=== PATIENT | male | born 1945 | race Hispanic/Latino ===

== ENCOUNTER 2017-05-16 09:08 | Emergency (ER) | payer MEDICARE, OTHER ==
[2017-05-16 09:32] VITALS: BMI 19.2
--- NOTE | 2017-05-16 09:33 | C.PDOC ---
History Of Present Illness 72M c/o low back pain since 2010 which has worsened over the last couple days. he says he used to take opioid pain medication but stopped back in august. he denies any fever, IVDA, abdominal pain, problems with urination, numbness, weakness, or saddle anesthesia. Past Medical History Vital Signs: Last Vital Signs Temp 97.7 F 05/16/17 12:32 Pulse 84 05/16/17 12:32 Resp 17 05/16/17 12:32 BP 143/77 05/16/17 12:32 Pulse Ox 98 05/16/17 12:32 - Medical History PMH: Back Problems, Benign Prostatic Hyperplasia, Cardia Arrhythmia, CHF, COPD, Depression, Diabetes, Diverticulitis, HTN, Hypercholesterolemia, Kidney Stones Denies: Chronic Kidney Disease Surgical History: Hernia Repair, Pacemaker - [facility] Procedures BYPASS ILEUM TO TRANSVERSE COLON, OPEN APPROACH (05/08/15) BYPASS SIGMOID COLON TO CUTANEOUS, OPEN APPROACH (05/08/15) EXCISION OF RECTUM, OPEN APPROACH (03/19/16) EXTIRPATION OF MATTER FROM GI TRACT, OPEN APPROACH (03/19/16) INSERTION OF INFUSION DEV INTO R BRACH VEIN, PERC APPROACH (05/08/15) INTRODUCTION OF NUTRITIONAL INTO PERIPH VEIN, PERC APPROACH (05/08/15) IRRIGATION OF PERITONEAL CAVITY USING IRRIGAT, PERC APPROACH (05/08/15) REPAIR ABDOMINAL WALL, OPEN APPROACH (03/19/16) REPAIR ABDOMINAL WALL, STOMA, EXTERNAL APPROACH (02/13/16) RESECTION OF RIGHT LARGE INTESTINE, OPEN APPROACH (05/08/15) TRANSFUSE NONAUT RED BLOOD CELLS IN PERIPH VEIN, PERC (03/19/16) ULTRASONOGRAPHY OF RIGHT UPPER EXTREMITY VEINS, GUIDANCE (05/08/15) VACCINATION NEC (02/04/14) Family History: States: Unknown Family Hx - Social History Hx Tobacco Use: Yes Hx Alcohol Use: No Hx Substance Use: No - Immunization History Hx Tetanus Toxoid Vaccination: Yes Hx Influenza Vaccination: No Hx Pneumococcal Vaccination: Yes Physical Exam - Physical Exam Appears: Well, Non-toxic, No Acute Distress Skin: Warm, Dry Head: Atraumatic Eye(s): bilateral: PERRL Nose: No Epistaxis Cardiovascular: Rhythm Regular Respiratory: No Decreased Breath Sounds, No Accessory Muscle Use, No Rales, No Rhonchi, No Stridor, No Wheezing Gastrointestinal/Abdominal: Soft, No Tenderness, No Distention, No Guarding, No Rebound Back: No Vertebral Tenderness Extremity: No Swelling Extremity: Bilateral: Normal ROM (hips and knees) Pulses: Left Dorsalis Pedis: Normal, Right Dorsalis Pedis: Normal Neurological/Psych: Oriented x3, Normal Motor, Normal Sensation, Other (no focal deficits. negative babinski. no clonus. nl strength in b/l hip/knee/ankle flex/ext and EHL.) Medical Decision Making Medical Decision Making: xr ls, right hip, pelvis- no acute fracture 1215 pt resting quietly in no distress. I disc results, plan for rx, f/u and rtr. he v/u and agrees w plan. Disposition - Disposition Referrals: Bandar Gold Jr., MD [Medical Doctor] - Disposition: HOME/ ROUTINE Disposition Time: 12:18 Condition: STABLE Additional Instructions: Please follow up with your doctor. Return to the ER for any worsening symptoms or for any other concerns. Prescriptions: Cyclobenzaprine [Cyclobenzaprine HCl] 10 mg PO TID PRN #20 tab PRN Reason: Pain, Severe (8-10) Lidocaine 5% [Lidoderm] 1 ea TD DAILY PRN #10 patch PRN Reason: back pain Naproxen [Naprosyn] 500 mg PO Q12H PRN #10 tablet PRN Reason: Pain, Moderate (4-7) Forms: General Discharge Instructions, [facility] (Portuguese) - Clinical Impression Clinical Impression: Low back pain
[2017-05-16 11:31] LABS: URINE BILIRUBIN NEGATIVE (NEGATIVE); URINE BLOOD NEGATIVE (NEGATIVE); URINE CLARITY Clear (Clear); URINE COLOR Yellow (YELLOW); URINE GLUCOSE (UA) NORMAL (Normal); URINE LEUKOCYTE ESTERASE NEG Leu/uL (Negative); URINE NITRATE NEGATIVE (NEGATIVE); URINE PROTEIN NEGATIVE (NEGATIVE); URINE UROBILINOGEN NORMAL mg/dL (0.2-1.0)
--- NOTE | 2017-05-16 12:30 | RAD ---
PROCEDURE: Radiographs of the Lumbar Spine. HISTORY: pain COMPARISON: Comparison is made to the previous CT of the lumbar spine dated 08/26/2016 FINDINGS: BONES: Again seen are diffuse osteopenia. There are multiple [id number] compression deformity in the lumbar spine. Grade moderate levoscoliosis and S shape scoliosis at the lower thoracic and lumbar spine noted. . DISC SPACES: Advanced degenerative changes are noted at the lumbar spine. OTHER FINDINGS: None. IMPRESSION: Advanced degenerative changes and diffuse osteopenia. Multiple mild compression deformity at the lumbar spine vertebrae. Lumbar spine levoscoliosis.
[2017-05-16 12:32] VITALS: BP 143/77; PULSE 84; RESP 17; TEMP 97.7; O2SAT 98
--- NOTE | 2017-05-16 12:34 | RAD ---
PROCEDURE: Right Hip Radiographs. HISTORY: pain COMPARISON: None. FINDINGS: BONES: Normal. No fracture. JOINTS: Moderate osteoarthritic changes. SOFT TISSUES: Normal. OTHER FINDINGS: None. IMPRESSION: No evidence of acute fracture or dislocation. Moderate osteoarthritic changes.
== END 2017-05-16 12:31 | disposition home or self-care (01) ==
LOC: C.ER 09:08
DX: M54.5 Low back pain (principal)
CPT/HCPCS: 36415; 72100; 73502; 81001; 96372; 99284; J1885

== ENCOUNTER 2017-05-29 10:26 | Emergency (ER) | payer MEDICARE, OTHER ==
[2017-05-29 10:26] VITALS: BMI 19.2
--- NOTE | 2017-05-29 11:37 | C.PDOC ---
History Of Present Illness 72 y/o male presents to ED with complaints of "pinching in left costovertebral area" that began today. Pt states he was seen last week for right sided back pain with negative x-rays and he was discharged with muscle relaxants, lidoderm patch, and naprosyn. Pt also states he was seen by Pain Management and was prescribed Endocet 10/325. Pt states he ran out of muscle relaxants and he was using lidoderm ointment. 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 He states endocet improved pain but it did recur this morning. Denies numbness or weakness in legs, abdominal pain, SOB, fever, nausea or vomiting. He denies any injury or overuse activities Time Seen by Provider: 05/29/17 10:56 Chief Complaint (Nursing): Back Pain History Per: Patient History/Exam Limitations: no limitations Onset/Duration Of Symptoms: Hrs Current Symptoms Are (Timing): Still Present Quality Of Discomfort: Other (Pinching) Previous Symptoms: Back Pain (right sided ) Associated Symptoms: None Recent travel outside of the [place]: No Past Medical History Reviewed: Historical Data, Nursing Documentation, Vital Signs Vital Signs: Last Vital Signs Temp 98.1 F 05/29/17 10:39 Pulse 80 05/29/17 10:39 Resp 15 05/29/17 10:39 BP 170/62 H 05/29/17 10:39 Pulse Ox 98 05/29/17 13:16 - Medical History PMH: Back Problems, Benign Prostatic Hyperplasia, Cardia Arrhythmia, CHF, COPD, Depression, Diabetes, Diverticulitis, HTN, Hypercholesterolemia, Kidney Stones Surgical History: Hernia Repair, Pacemaker - [facility] Procedures BYPASS ILEUM TO TRANSVERSE COLON, OPEN APPROACH (05/08/15) BYPASS SIGMOID COLON TO CUTANEOUS, OPEN APPROACH (05/08/15) EXCISION OF RECTUM, OPEN APPROACH (03/19/16) EXTIRPATION OF MATTER FROM GI TRACT, OPEN APPROACH (03/19/16) INSERTION OF INFUSION DEV INTO R BRACH VEIN, PERC APPROACH (05/08/15) INTRODUCTION OF NUTRITIONAL INTO PERIPH VEIN, PERC APPROACH (05/08/15) IRRIGATION OF PERITONEAL CAVITY USING IRRIGAT, PERC APPROACH (05/08/15) REPAIR ABDOMINAL WALL, OPEN APPROACH (03/19/16) REPAIR ABDOMINAL WALL, STOMA, EXTERNAL APPROACH (02/13/16) RESECTION OF RIGHT LARGE INTESTINE, OPEN APPROACH (05/08/15) TRANSFUSE NONAUT RED BLOOD CELLS IN PERIPH VEIN, PERC (03/19/16) ULTRASONOGRAPHY OF RIGHT UPPER EXTREMITY VEINS, GUIDANCE (05/08/15) VACCINATION NEC (02/04/14) Family History: States: Unknown Family Hx - Social History Hx Tobacco Use: Yes Hx Alcohol Use: No Hx Substance Use: No - Immunization History Hx Tetanus Toxoid Vaccination: Yes Hx Influenza Vaccination: No Hx Pneumococcal Vaccination: Yes Review Of Systems Constitutional: Negative for: Fever Respiratory: Negative for: Shortness of Breath Gastrointestinal: Negative for: Nausea, Vomiting, Abdominal Pain, Diarrhea Musculoskeletal: Positive for: Other (pinching in left costovertebral area) Neurological: Negative for: Weakness, Numbness Physical Exam - Physical Exam Appears: Well, Non-toxic, Other (Awake and alert) Skin: Normal Color, Warm, Dry Head: Atraumatic, Normacephalic Eye(s): bilateral: Normal Inspection Oral Mucosa: Moist Chest: Symmetrical, No Tenderness Cardiovascular: Rhythm Regular Respiratory: No Rales, No Rhonchi, No Wheezing Gastrointestinal/Abdominal: Soft, No Tenderness Extremity: Tenderness (Left lumbar muscle but no bony tenderness), No Deformity , No Swelling Neurological/Psych: Oriented x3, Normal Speech, Normal Cognition ED Course And Treatment - Laboratory Results Result Diagrams: 05/29/17 11:58 05/29/17 11:58 Lab Interpretation: Normal O2 Sat by Pulse Oximetry: 98 (RA) Pulse Ox Interpretation: Normal - CT Scan/US CT Abdomen & Pelvis Other Rad Studies (CT/US): Read By Radiologist, Radiology Report Reviewed CT/US Interpretation: PROCEDURE: CT Abdomen and Pelvis without intravenous contrast. HISTORY: Pain. COMPARISON: 08/26/2016. TECHNIQUE: Without contrast.. Contrast Dose: 0. Radiation dose: Total exam DLP = 255.72 mGy-cm. This CT exam was performed using one or more of the following dose reduction techniques: Automated exposure control, adjustment of the mA and/or kV according to patient size, and/or use of iterative reconstruction technique. FINDINGS: LOWER THORAX: Cardiomegaly. AICD. No infiltrate. LIVER: Unremarkable. No gross lesion or ductal dilatation. GALLBLADDER AND BILE DUCTS : Unremarkable. PANCREAS: Unremarkable. No gross lesion or ductal dilatation. SPLEEN: Unremarkable. ADRENALS: Unremarkable. No mass. KIDNEYS AND URETERS: Multiple right renal calculi, largest approximately 1.3 cm. No hydronephrosis. No left renal calculus. Parapelvic cyst, 2.6 cm, measuring 11 Hounsfield units. Multiple small right renal cortical masses. 1.2 cm mid right renal mass, slightly hyperdense. Consider correlation with ultrasound. No change from prior. Probable tiny hyperdense cyst lower pole right kidney. Another low-density exophytic mid right renal mass measures 8 mm, unchanged. VASCULATURE: Unremarkable. No aortic aneurysm. BOWEL: There is an anastomosis in the ascending colon. There are surgical clips seen about a loop of distal ileum. There is no bowel obstruction. There is mild retained feces. APPENDIX: Not identified. PERITONEUM: Unremarkable. No free fluid. No free air. LYMPH NODES: Unremarkable. No enlarged lymph nodes. BLADDER: The bladder is significant for a somewhat tubular low-density structure adjacent to the left side of the bladder, possibly with calcified suture material. This may reflect prior bladder surgery such as ureteral implantation. Alternatively, this may represent an atypical diverticulum. Please correlate with history. This is evident on prior examination, in retrospect. REPRODUCTIVE: Unremarkable prostate. BONES: Lumbar levoscoliosis. No acute fracture. OTHER FINDINGS: None. IMPRESSION: No acute abnormality. No bowel obstruction. Evidence prior colonic anastomosis. Tubular fluid collection adjacent to left- sided urinary bladder, possibly reflecting prior ureteral surgery or atypical bladder diverticulum. Multiple nonobstructing right renal calculi. Progress Note: Ordered CT abdomen & pelvis, blood work and urinalysis. Reevaluation Time: 13:15 Reassessment Condition: Improved Disposition Counseled Patient/Family Regarding: Studies Performed, Diagnosis, Need For Followup, Rx Given - Disposition Disposition: HOME/ ROUTINE Disposition Time: 13:17 Condition: STABLE Prescriptions: Cyclobenzaprine [Flexeril] 10 mg PO TID PRN #30 tab PRN Reason: Pain, Severe (8-10) Instructions: Musculoskeletal Pain (ED) Forms: [facility] (Congolese) - Clinical Impression Clinical Impression: Spasm of back muscles - Scribe Statement The provider has reviewed the documentation as recorded by the Vianeyibcesar Carlos All medical record entries made by the Vianeyibcesar were at my direction and personally dictated by me. I have reviewed the chart and agree that the record accurately reflects my personal performance of the history, physical exam, medical decision making, and the department course for this patient. I have also personally directed, reviewed, and agree with the discharge instructions and disposition.
[2017-05-29 11:49] LABS: URINE BILIRUBIN NEGATIVE (NEGATIVE); URINE BLOOD NEGATIVE (NEGATIVE); URINE CLARITY Clear (Clear); URINE COLOR Yellow (YELLOW); URINE GLUCOSE (UA) NORMAL (Normal); URINE LEUKOCYTE ESTERASE NEG Leu/uL (Negative); URINE NITRATE NEGATIVE (NEGATIVE); URINE PROTEIN NEGATIVE (NEGATIVE); URINE UROBILINOGEN NORMAL mg/dL (0.2-1.0)
[2017-05-29 12:03] LABS: BASO # 0.1 K/uL (0.0-0.2); BASO % 0.8 % (0.0-2.0); EOS # 0.2 K/uL (0.0-0.7); EOS % 2.5 % (0.0-4.0); HEMOGLOBIN 13.8 g/dL (12.0-18.0); LYMPH # 1.9 K/uL (1.0-4.3); LYMPH % 21.3 % (20.0-40.0); MEAN CELL VOLUME 98.3 fL (80.0-94.0); MEAN CORPUSCULAR HEMOGLOBIN 33.1 pg (27.0-31.0); MEAN CORPUSCULAR HGB CONC 33.7 g/dL (33.0-37.0); MEAN PLATELET VOLUME 8.5 fL (7.2-11.7); MONO # 0.7 K/uL (0.0-0.8); MONO % 7.4 % (0.0-10.0); NEUT # 6.2 K/uL (1.8-7.0); NRBC % 0.1 % (0.0-2.0); RBC 4.16 Mil/uL (4.40-5.90); RED CELL DISTRIBUTION WIDTH 13.8 % (11.5-14.5); WHITE BLOOD COUNT 9.1 K/uL (4.8-10.8)
[2017-05-29 12:17] LABS: ALB/GLOB RATIO 1.2 (1.0-2.1); ALBUMIN 3.8 g/dL (3.5-5.0); ALT/SGPT 23 U/L (21-72); AST/SGOT 24 U/L (17-59); BLOOD UREA NITROGEN 17 mg/dL (9-20); CALCIUM 8.5 mg/dl (8.6-10.4); GFR AFRICAN-AMERICAN > 60; GFR NON-AFRICAN AMERICAN > 60
--- NOTE | 2017-05-29 12:34 | CT ---
PROCEDURE: CT Abdomen and Pelvis without intravenous contrast HISTORY: Pain COMPARISON: 08/26/2016 TECHNIQUE: Without contrast.. Contrast Dose: 0 Radiation dose: Total exam DLP = 255.72 mGy-cm. This CT exam was performed using one or more of the following dose reduction techniques: Automated exposure control, adjustment of the mA and/or kV according to patient size, and/or use of iterative reconstruction technique. FINDINGS: LOWER THORAX: Cardiomegaly. AICD. No infiltrate. LIVER: Unremarkable. No gross lesion or ductal dilatation. GALLBLADDER AND BILE DUCTS: Unremarkable. PANCREAS: Unremarkable. No gross lesion or ductal dilatation. SPLEEN: Unremarkable. ADRENALS: Unremarkable. No mass. KIDNEYS AND URETERS: Multiple right renal calculi, largest approximately 1.3 cm. No hydronephrosis. No left renal calculus. Parapelvic cyst, 2.6 cm, measuring 11 Hounsfield units. Multiple small right renal cortical masses. 1.2 cm mid right renal mass, slightly hyperdense. Consider correlation with ultrasound. No change from prior. Probable tiny hyperdense cyst lower pole right kidney. Another low-density exophytic mid right renal mass measures 8 mm, unchanged. VASCULATURE: Unremarkable. No aortic aneurysm. BOWEL: There is an anastomosis in the ascending colon. There are surgical clips seen about a loop of distal ileum. There is no bowel obstruction. There is mild retained feces. APPENDIX: Not identified. PERITONEUM: Unremarkable. No free fluid. No free air. LYMPH NODES: Unremarkable. No enlarged lymph nodes. BLADDER: The bladder is significant for a somewhat tubular low-density structure adjacent to the left side of the bladder, possibly with calcified suture material. This may reflect prior bladder surgery such as ureteral implantation. Alternatively, this may represent an atypical diverticulum. Please correlate with history. This is evident on prior examination, in retrospect. REPRODUCTIVE: Unremarkable prostate BONES: Lumbar levoscoliosis. No acute fracture. OTHER FINDINGS: None. IMPRESSION: No acute abnormality. No bowel obstruction. Evidence prior colonic anastomosis. Tubular fluid collection adjacent to left-sided urinary bladder, possibly reflecting prior ureteral surgery or atypical bladder diverticulum. Multiple nonobstructing right renal calculi.
[2017-05-29 13:48] VITALS: BP 166/90; PULSE 62; RESP 20; TEMP 97.6; O2SAT 97
== END 2017-05-29 13:48 | disposition home or self-care (01) ==
LOC: C.ER 10:26
DX: M62.830 Muscle spasm of back (principal); I10 Essential (primary) hypertension; E78.00 Pure hypercholesterolemia, unspecified; E11.9 Type 2 diabetes mellitus without complications; F17.210 Nicotine dependence, cigarettes, uncomplicated

== ENCOUNTER 2017-12-09 12:52 | Emergency (ER) | payer MEDICARE, OTHER ==
[2017-12-09 13:01] VITALS: BMI 19.0
[2017-12-09 13:04] VITALS: BP 156/83; PULSE 69; RESP 18; TEMP 97.7; O2SAT 97
--- NOTE | 2017-12-09 13:22 | C.PDOC ---
History Of Present Illness 72 y/o male presents to the ER complaining of lower back pain for the past 8 days. The patient states the pain began after using a hand truck to move furniture 2 weeks ago, and felt sudden onset of worsening pain. He goes to rehab twice a week for back problems. The patient took percocet at home but did not ice his lower back . He denies any associated fever, chills, dysuria, frequency, incontinence, numbness, tingling or focal weakness. Time Seen by Provider: 12/09/17 13:08 Chief Complaint (Nursing): Back Pain History Per: Patient History/Exam Limitations: no limitations Onset/Duration Of Symptoms: Days Current Symptoms Are (Timing): Still Present Quality Of Discomfort: "Pain" Previous Symptoms: Back Pain (lower) Associated Symptoms: denies: New Weakness, New Numbness Past Medical History Reviewed: Historical Data, Nursing Documentation, Vital Signs Vital Signs: Last Vital Signs Temp 97.7 F 12/09/17 13:01 Pulse 69 12/09/17 13:01 Resp 18 12/09/17 13:43 BP 156/83 H 12/09/17 13:01 Pulse Ox 97 12/09/17 14:57 - Medical History PMH: Back Problems, Benign Prostatic Hyperplasia, Cardia Arrhythmia, CHF, COPD, Depression, Diabetes, Diverticulitis, HTN, Hypercholesterolemia, Kidney Stones, Chronic Kidney Disease Surgical History: Hernia Repair, Pacemaker - [facility] Procedures BYPASS ILEUM TO TRANSVERSE COLON, OPEN APPROACH (05/08/15) BYPASS SIGMOID COLON TO CUTANEOUS, OPEN APPROACH (05/08/15) EXCISION OF RECTUM, OPEN APPROACH (03/19/16) EXTIRPATION OF MATTER FROM GI TRACT, OPEN APPROACH (03/19/16) INSERTION OF INFUSION DEV INTO R BRACH VEIN, PERC APPROACH (05/08/15) INTRODUCTION OF NUTRITIONAL INTO PERIPH VEIN, PERC APPROACH (05/08/15) IRRIGATION OF PERITONEAL CAVITY USING IRRIGAT, PERC APPROACH (05/08/15) REPAIR ABDOMINAL WALL, OPEN APPROACH (03/19/16) REPAIR ABDOMINAL WALL, STOMA, EXTERNAL APPROACH (02/13/16) RESECTION OF RIGHT LARGE INTESTINE, OPEN APPROACH (05/08/15) TRANSFUSE NONAUT RED BLOOD CELLS IN PERIPH VEIN, PERC (03/19/16) ULTRASONOGRAPHY OF RIGHT UPPER EXTREMITY VEINS, GUIDANCE (05/08/15) VACCINATION NEC (02/04/14) Family History: States: Unknown Family Hx - Social History Hx Tobacco Use: Yes Hx Alcohol Use: No Hx Substance Use: No - Immunization History Hx Tetanus Toxoid Vaccination: No Hx Influenza Vaccination: No Hx Pneumococcal Vaccination: No Review Of Systems Except As Marked, All Systems Reviewed And Found Negative. Constitutional: Negative for: Fever, Chills Genitourinary: Negative for: Dysuria, Frequency, Incontinence Musculoskeletal: Positive for: Back Pain Neurological: Negative for: Weakness (focal), Numbness, Other (tingling) Physical Exam - Physical Exam Appears: Well, Non-toxic, No Acute Distress Skin: Warm, Dry Head: Atraumatic, Normacephalic Eye(s): bilateral: PERRL, EOMI Ear(s): Bilateral: Normal Oral Mucosa: Moist Neck: Normal ROM, Supple Chest: Symmetrical Cardiovascular: Rhythm Regular, No Murmur Respiratory: Normal Breath Sounds, No Rales, No Rhonchi, No Wheezing Gastrointestinal/Abdominal: Bowel Sounds, Soft, No Tenderness Back: No Vertebral Tenderness, Paraspinal Tenderness (Paralumbar tenderness bilaterally) Extremity: Normal ROM Extremity: Bilateral: Atraumatic, Normal Color And Temperature, Normal ROM Pulses: Left Radial: Normal, Right Radial: Normal Neurological/Psych: Oriented x3, Normal Speech, Normal Motor, Normal Sensation Gait: Steady ED Course And Treatment O2 Sat by Pulse Oximetry: 97 (RA) Pulse Ox Interpretation: Normal Medical Decision Making Medical Decision Making: Impression: 72 y/o male with Paralumbar tenderness bilaterally Plan: --Motrin 600mg PO low back strain, improving over the past week, best today LOW susp of spinal fracture NSIADS and ice PRIOR To using Percocet educated. Disposition Doctor Will See Patient In The: Office Counseled Patient/Family Regarding: Studies Performed, Diagnosis - Disposition Referrals: Bandar Gold Jr., MD [Medical Doctor] - Disposition: HOME/ ROUTINE Disposition Time: 13:23 Condition: GOOD Additional Instructions: Advil/Motrin 400-600 mg every 6 hours as needed for lower back pain ice packs 1/2 hour per hour, nothing hot Use as LITTLE Percocet as possible follow-up with Dr. Gold as needed LOW suspicion of spinal fracture. Instructions: Lumbar Muscle Strain (DC) Forms: [facility] (Luxembourgish) - Clinical Impression Clinical Impression: Low back strain - Scribe Statement The provider has reviewed the documentation as recorded by the Scribe (Jayshree Freeman) Provider Attestation: All medical record entries made by the Scribe were at my direction and personally dictated by me. I have reviewed the chart and agree that the record accurately reflects my personal performance of the history, physical exam, medical decision making, and the department course for this patient. I have also personally directed, reviewed, and agree with the discharge instructions and disposition.
== END 2017-12-09 13:44 | disposition home or self-care (01) ==
LOC: C.ER 12:52
DX: S39.012A Strain of muscle, fascia and tendon of lower back, initial encounter (principal); X58.XXXA Exposure to other specified factors, initial encounter

== ENCOUNTER 2017-12-24 05:49 | Emergency (ER) | payer MEDICARE, OTHER ==
[2017-12-24 05:50] VITALS: BMI 19.0
[2017-12-24] MEDS ORDERED: Sodium Chloride 0.9% 500 ML IV ONE (06:15)
[2017-12-24] MEDS ORDERED: Sodium Chloride 0.9% 1,000 ML IV ONE (06:15)
[2017-12-24 06:22] LABS: BASO % 0.4 % (0.0-2.0); EOS # 0.2 K/uL (0.0-0.7); EOS % 1.8 % (0.0-4.0); HEMOGLOBIN 13.3 g/dL (12.0-18.0); LYMPH # 1.6 K/uL (1.0-4.3); LYMPH % 15.1 % (20.0-40.0); MEAN CELL VOLUME 98.5 fL (80.0-94.0); MEAN CORPUSCULAR HEMOGLOBIN 33.5 pg (27.0-31.0); MEAN PLATELET VOLUME 8.5 fL (7.2-11.7); MONO # 1.1 K/uL (0.0-0.8); NEUT # 7.8 K/uL (1.8-7.0); NEUT % 72.7 % (50.0-75.0); RBC 3.96 Mil/uL (4.40-5.90); RED CELL DISTRIBUTION WIDTH 13.8 % (11.5-14.5); WHITE BLOOD COUNT 10.7 K/uL (4.8-10.8)
[2017-12-24] MEDS ORDERED: Sodium Chloride 0.9% 1,000 ML ONE (06:23)
[2017-12-24 06:40] LABS: ALB/GLOB RATIO 1.2 (1.0-2.1); ALBUMIN 3.8 g/dL (3.5-5.0); CALCIUM 8.7 mg/dl (8.6-10.4)
--- NOTE | 2017-12-24 06:43 | C.PDOC ---
History Of Present Illness 72 year old male with PMHx of colectomy and kidney stones presents to the ED c/ o hematuria and back pain. Patient states he had kidney stones in the past. Patient denies fever, chills, nausea, vomit, diarrhea. Chief Complaint (Nursing): Male Genitourinary History Per: Patient History/Exam Limitations: no limitations Onset/Duration Of Symptoms: Hrs Current Symptoms Are (Timing): Still Present Quality Of Discomfort: "Pain" Associated Symptoms: Urinary Symptoms. denies: Nausea, Vomiting, Diarrhea Recent travel outside of the [place]: No Additional History Per: Patient Past Medical History Reviewed: Historical Data, Nursing Documentation, Vital Signs Vital Signs: Last Vital Signs Temp 98.5 F 12/24/17 05:57 Pulse 74 12/24/17 05:57 Resp 18 12/24/17 05:57 BP 145/75 12/24/17 05:57 Pulse Ox 98 12/24/17 06:47 - Medical History PMH: Back Problems, Benign Prostatic Hyperplasia, Cardia Arrhythmia, CHF, COPD, Depression, Diabetes, Diverticulitis, HTN, Hypercholesterolemia, Kidney Stones, Chronic Kidney Disease Surgical History: Hernia Repair, Pacemaker - [facility] Procedures BYPASS ILEUM TO TRANSVERSE COLON, OPEN APPROACH (05/08/15) BYPASS SIGMOID COLON TO CUTANEOUS, OPEN APPROACH (05/08/15) EXCISION OF RECTUM, OPEN APPROACH (03/19/16) EXTIRPATION OF MATTER FROM GI TRACT, OPEN APPROACH (03/19/16) INSERTION OF INFUSION DEV INTO R BRACH VEIN, PERC APPROACH (05/08/15) INTRODUCTION OF NUTRITIONAL INTO PERIPH VEIN, PERC APPROACH (05/08/15) IRRIGATION OF PERITONEAL CAVITY USING IRRIGAT, PERC APPROACH (05/08/15) REPAIR ABDOMINAL WALL, OPEN APPROACH (03/19/16) REPAIR ABDOMINAL WALL, STOMA, EXTERNAL APPROACH (02/13/16) RESECTION OF RIGHT LARGE INTESTINE, OPEN APPROACH (05/08/15) TRANSFUSE NONAUT RED BLOOD CELLS IN PERIPH VEIN, PERC (03/19/16) ULTRASONOGRAPHY OF RIGHT UPPER EXTREMITY VEINS, GUIDANCE (05/08/15) VACCINATION NEC (02/04/14) Family History: States: Unknown Family Hx - Social History Hx Tobacco Use: Yes Hx Alcohol Use: No Hx Substance Use: No - Immunization History Hx Tetanus Toxoid Vaccination: No Hx Influenza Vaccination: No Hx Pneumococcal Vaccination: No Review Of Systems Constitutional: Negative for: Fever, Chills Cardiovascular: Negative for: Chest Pain, Palpitations Respiratory: Negative for: Cough, Shortness of Breath Gastrointestinal: Positive for: Abdominal Pain. Negative for: Nausea, Vomiting Genitourinary: Positive for: Hematuria Musculoskeletal: Positive for: Back Pain Skin: Negative for: Rash Neurological: Negative for: Weakness, Numbness Physical Exam - Physical Exam Appears: Non-toxic, No Acute Distress Skin: Normal Color, Warm, Dry Head: Atraumatic, Normacephalic Eye(s): bilateral: Normal Inspection Oral Mucosa: Moist Neck: Normal ROM, Supple Chest: Symmetrical Cardiovascular: Rhythm Regular Respiratory: Normal Breath Sounds, No Rales, No Rhonchi, No Wheezing Gastrointestinal/Abdominal: Soft, No Tenderness, No Guarding, No Rebound Back: CVA Tenderness Extremity: Normal ROM, No Tenderness, No Swelling Neurological/Psych: Oriented x3, Normal Speech Gait: Steady ED Course And Treatment - Laboratory Results Result Diagrams: 12/24/17 06:19 12/24/17 06:19 O2 Sat by Pulse Oximetry: 98 (ON RA) Pulse Ox Interpretation: Normal Medical Decision Making Medical Decision Making: Plan: * CT abd/pelvis * Toradol 30 mg IVP * IV fluids * Urine culture * UA Disposition - Disposition Referrals: Bandar Gold Jr., MD [Primary Care Provider] - Disposition Time: 07:00 Condition: STABLE Forms: [facility] (Syriac) - Clinical Impression Clinical Impression: Hematuria, Back pain - Scribe Statement The provider has reviewed the documentation as recorded by the Scribe Rigoberto Zaragoza All medical record entries made by the Scribe were at my direction and personally dictated by me. I have reviewed the chart and agree that the record accurately reflects my personal performance of the history, physical exam, medical decision making, and the department course for this patient. I have also personally directed, reviewed, and agree with the discharge instructions and disposition. Physician Patient Turnover Patient Signed Over To: Tin Mackenzie Handoff Comments: back pain and hematuria, awaaiting CT study to r/o stone.
[2017-12-24 06:54] LABS: SQUAMOUS EPITHIAL 1 /hpf (0-5); URINE BACTERIA RARE (<OCC); URINE BILIRUBIN NEGATIVE (NEGATIVE); URINE BLOOD 2+ (NEGATIVE); URINE CLARITY Hazy (Clear); URINE COLOR Amber (YELLOW); URINE GLUCOSE (UA) NORMAL (Normal); URINE LEUKOCYTE ESTERASE 2+ Leu/uL (Negative); URINE PROTEIN 2+ mg/dL (NEGATIVE); URINE UROBILINOGEN NORMAL mg/dL (0.2-1.0)
[2017-12-24 08:49] VITALS: BP 142/79; PULSE 77; RESP 16; TEMP 98.6; O2SAT 99
--- NOTE | 2017-12-24 10:38 | CT ---
Date of service: 12/24/2017 PROCEDURE: CT abdomen pelvis. . HISTORY: Back pain/hematuria COMPARISON: Comparison made with prior CT scan of the abdomen pelvis 05/29/2017. TECHNIQUE: Contiguous axial images of the abdomen an pelvis performed without oral or intravenous contrast material. Additional 2D sagittal and coronal reformats generated. Radiation dose: Total exam DLP = . 9.68 mGy-cm. This CT exam was performed using one or more of the following dose reduction techniques: Automated exposure control, adjustment of the mA and/or kV according to patient size, and/or use of iterative reconstruction technique. FINDINGS: LOWER THORAX: Heart is mildly enlarged. No significant pericardial effusion. Tiny hiatal hernia. Mild linear atelectasis and or scarring changes seen both the lung bases including the middle lobe and lingular regions. No infiltrate effusion or basilar pneumothorax. LIVER: Liver exhibits normal size and attenuation pattern. Obvious hepatic mass or collection. GALLBLADDER AND BILE DUCTS: Gallbladder incompletely distended which presumably in part accounts for thick-walled appearance. . No obvious intraluminal gallbladder calculi to suggest acute cholecystitis however clinical correlation with history recommended PANCREAS: The pancreas is atrophic fatty replaced. No obvious pancreatic mass collection or calcification. SPLEEN: Unremarkable. No splenomegaly. ADRENALS: Left adrenal gland slightly nodular in appearance KIDNEYS AND URETERS: There are multiple right renal calculi the largest located in the posterior aspect of the collecting system midpole right kidney measuring approximately 10.2 mm in greatest transverse dimension. There are 2 additional calculi seen in the lower pole right kidney measuring 9 mm. Small calculus seen mid to lower pole right renal collecting system is well. Small exophytic foci likely representing renal cysts 1 of which is a linear calcification in the distal right ureter that measures approximately 13 mm x 2.8 mm. . There are several intraluminal urinary bladder calculi 2 of which are located in the right posterior inferior margin of the urinary bladder near the right ureteral orifice of the largest 2 measuring approximate 6.8 mm and 5.5 mm, the latter of which is located close to the ureteral orifice. Smaller calculi seen within the mid inferior and left posterior inferior margins of the latter 2 of which are near the left ureteral orifice. Punctate calcification seen in upper pole and lower pole collecting system left kidney. No evidence of left-sided hydronephrosis. BLADDER: As above. REPRODUCTIVE: Prostate gland measures approximately 4.4 cm. APPENDIX: Appendix is not seen with certainty on this study. No obvious inflammatory changes right lower quadrant of the abdomen. BOWEL: Evaluation of the bowel is limited due to the lack of oral contrast material. Stomach is incompletely distended which presumably part accounts thick-walled appearance. The visualized loops of small bowel exhibit normal contour and caliber. No evidence of acute mechanical small bowel obstruction. Metallic clips and opaque suture material seen in the region of the right hepatic flexure with additional clips and suture material along the sigmoid colon region. Clinic correlation with surgical history. There is a moderately large amount of stool seen throughout the entire colon consistent fecal retention/ constipation. PERITONEUM: Unremarkable. No fluid collection. No free air. LYMPH NODES: Unremarkable. No enlarged lymph nodes. VASCULATURE: Unremarkable. No aortic aneurysm partially calcified atherosclerotic plaque changes seen along the abdominal aorta and iliac arteries. . BONES: There are multiple of chronic appearing endplate deformities most notably of which involves the superior L4 endplate. Multilevel degenerative spondylosis of the lower thoracic and lumbar spine. There is a moderate to fairly significant levoscoliosis centered at the T12-L1 level with the aid moderate dextroscoliosis in the lower thoracic region. Rounded/elliptical shaped sclerotic lesion within the right inferior pubic ramus adjacent to the symphysis likely representing bone island or osteoma. A similar smaller focus seen in the posterior aspect left iliac bone. OTHER FINDINGS: None. IMPRESSION: Multiple right renal calculi with of linear calculus in the distal right ureter with right-sided hydronephrosis. There are also numerous calculi seen in the urinary bladder 2 of the largest calculi located in the region the right ureteral orifice. . Punctate calculi seen in the upper and lower pole left renal collecting system with tiny calculi seen in the lumen of bladder near the left ureteral orifice however there is no evidence of left-sided hydronephrosis. Postoperative changes of the colon with moderate two fairly significant constipation changes. Pancreatic atrophy. See above discussion for additional details and findings.
== END 2017-12-24 08:48 | disposition home or self-care (01) ==
LOC: SUPCPDRO 05:49 → C.ER 05:49
DX: N20.0 Calculus of kidney (principal); R31.9 Hematuria, unspecified; M54.9 Dorsalgia, unspecified
CPT/HCPCS: 74176; 80053; 81001; 83690; 85025; 87086; 96374; 99285; J1885; J7030; J7040

== ENCOUNTER 2018-01-03 10:52 | Day surgery (SDC) | payer MEDICARE, OTHER ==
[2018-01-03] MEDS ORDERED: Gentamicin 160 MG in Sodium Chloride 0.9% 100 ML IVPB ONE (13:15)
[2018-01-03] MEDS ORDERED: Iohexol 240 (50 ml) ONE (13:37)
[2018-01-03] MEDS ORDERED: Ciprofloxacin 400mg/200ml D5W 400 MG/200 ML BAG IVPB ONE (13:37)
[2018-01-03] MEDS ORDERED: Propofol 10 mg/ml Inj (20 ML) ONE (13:48)
--- NOTE | 2018-01-03 14:10 | PCM.SURG1 ---
Surgeon's Initial Post Op Note - Surgeon's Notes Surgeon: Marty Data Analyst Report Writer: Janessa Type of Anesthesia: General LMA Anesthesia Administered By: staff Pre-Operative Diagnosis: Right renal/ multiple bladder calculi Operative Findings: SAME Post-Operative Diagnosis: Same Operation Performed: Cysto removal 3 bladder calculi Specimen/Specimens Removed: 3 bladder calculi Estimated Blood Loss: EBL {In ML}: 0 Blood Products Given: N/A Drains Used: No Drains Post-Op Condition: Good Date of Surgery/Procedure: 01/03/18 Time of Surgery/Procedure: 14:10
[2018-01-03] MEDS ORDERED: HYDROmorphone 0.5 mg/0.5 ml ISec IVP PRN (14:17)
--- NOTE | 2018-01-03 15:34 | RAD ---
Date of service: 01/03/2018 HISTORY: RENAL AND BLADDER STONE COMPARISON: 12/29/2017 FINDINGS: BOWEL: Normal bowel gas pattern. Mild retained stool. There is an ovoid calculus overlying the right kidney measuring approximately 16 mm in greatest dimension. There are numerous surgical clips in the right abdomen and in the pelvis bilaterally. There is marked lumbar levoscoliosis. An AICD is noted. A 2nd film labeled post demonstrates a right ureteral stent. BONES: As above OTHER FINDINGS: None. IMPRESSION: Right ureteral stent. 16 mm right renal calculus.
[2018-01-03 16:01] VITALS: BP 151/66; PULSE 62; RESP 20; TEMP 97.8; O2SAT 98
--- NOTE | 2018-01-03 16:41 | RAD ---
Date of service: 01/03/2018 PROCEDURE: Intraoperative fluoroscopy HISTORY: RENAL AND BLADDER STONES COMPARISON: Not avail TECHNIQUE: Intraoperative fluoroscopy was provided for placement of right ureteral stent. Total time of fluoroscopy was 1.6 seconds. Cumulative dose was 0.66684 mGy meters squared. FINDINGS: Two fluoroscopic spot films are submitted. IMPRESSION: Fluoroscopy provided.
--- NOTE | 2018-01-04 00:25 | OP ---
Copied To: Roberto Ferguson MD Attending MD: Roberto Ferguson MD PROCEDURE DATE: 01/03/2018 PREOPERATIVE DIAGNOSES: Benign prostatic hyperplasia, multiple bladder calculi, and renal calculi. POSTOPERATIVE DIAGNOSES: Benign prostatic hyperplasia, multiple bladder calculi, and renal calculi. PROCEDURE: Cystoscopy, removal of three bladder calculi, and insertion of right double J-stent. DESCRIPTION OF PROCEDURE: Prior to the procedure, a detailed informed consent was obtained from the patient after a full explanation of risks, complications, limitations, and alternatives of this procedure. The patient agreed to accept the risk and was brought into the room, received prophylactic gentamicin and Cipro. He was draped and prepped in the usual manner and cystoscoped with #21 Storz panendoscope. Three stones were obtained within the bladder. Prostate was also noted to be enlarged and obstructing. Each stone was grasped separately and removed. The attention was then drawn to the right ureteral orifice. The guidewire was passed up into the right renal pelvis under fluoroscopy. We could see that the stone was in the renal pelvis. A 6-Belgian variable length stent was passed over the wire and positioned properly in the ureter. Based on these findings, the patient will need to proceed with lithotripsy and may need a TURP in the future. Roberto Ferguson MD
== END 2018-01-03 16:15 | disposition home or self-care (01) ==
LOC: C.SDS 10:52
PROVIDERS: ATTEND Urology
DX: N20.0 Calculus of kidney (principal); N20.2 Calculus of kidney with calculus of ureter; N21.0 Calculus in bladder
CPT/HCPCS: 52317; 52332; 74019; 88300; J0744; J1580

== ENCOUNTER 2018-02-28 09:48 | Day surgery (SDC) | payer MEDICARE, OTHER ==
[2018-02-28] MEDS ORDERED: Midazolam 2 MG/2 ML VIAL ONE (11:52)
[2018-02-28] MEDS ORDERED: Propofol 10 mg/ml Inj (20 ML) ONE (11:53)
[2018-02-28] MEDS ORDERED: Gentamicin 80 mg in 0.9% NS 160 MG/200 ML BAG IVPB ONE (12:15)
[2018-02-28] MEDS ORDERED: Lidocaine 2% Jelly (Uro-Jet) ONE (12:15)
[2018-02-28] MEDS: Ciprofloxacin 400mg/200ml D5W 400 MG/200 ML BAG IVPB ONE ×2 (12:26→12:34)
[2018-02-28] MEDS ORDERED: Etomidate 20 mg/10ml Inj IV ONE (12:51)
--- NOTE | 2018-02-28 13:03 | PCM.SURG1 ---
Surgeon's Initial Post Op Note - Surgeon's Notes Surgeon: Marty Material Mover: Janessa Type of Anesthesia: General LMA Anesthesia Administered By: Staff Pre-Operative Diagnosis: BPH JEFFERS Operative Findings: BPH JEFFERS Post-Operative Diagnosis: BPH JEFFERS Operation Performed: [place] Specimen/Specimens Removed: NA Estimated Blood Loss: EBL {In ML}: 0 Blood Products Given: N/A Drains Used: No Drains Post-Op Condition: Good Date of Surgery/Procedure: 02/28/18 Time of Surgery/Procedure: 13:03
[2018-02-28] MEDS ORDERED: HYDROmorphone 0.5 mg/0.5 ml ISec IVP PRN (13:10)
[2018-02-28 15:01] VITALS: O2SAT 100
[2018-02-28 15:07] VITALS: BP 153/70; PULSE 73; RESP 17; TEMP 97.7
--- NOTE | 2018-02-28 23:10 | OP ---
PROCEDURE DATE: 02/28/2018 PREOPERATIVE DIAGNOSIS: Benign prostatic hypertrophy with bladder outlet obstruction. POSTOPERATIVE DIAGNOSIS: Benign prostatic hypertrophy with bladder outlet obstruction. PROCEDURE: Transurethral resection of the prostate. SURGEON: Roberto Ferguson MD FINDINGS: Trilobar hypertrophy with bladder outlet obstruction. DESCRIPTION OF PROCEDURE: Prior to the procedure, a detailed informed consent was obtained from the patient . He understood the risks and complications of this procedure and other methods of treating BPH with bladder outlet obstruction. He was willing to accept the risks. He was brought into the room and a time-out was taken according to the rules and regulations of [facility]. The patient received prophylactic antibiotics and was cystoscoped with a laser cystoscope. Previous cystoscopic findings were confirmed. The working element was then inserted into the laser sheath and the laser fiber was inserted. The vaporization of the prostate began at the bladder neck at 1 o'clock and the tissues were vaporated just distal to the bladder neck and just proximal to the verumontanum. The opposite lobe was vaporized in similar fashion and the roof and base of tissue were vaporized in a similar fashion. Care was taken throughout the procedure to avoid injury to the verumontanum, external sphincter, and ureteral orifices, none occurred. The patient tolerated this procedure well and was sent to the recovery room in good condition. Roberto Ferguson MD
== END 2018-02-28 15:52 | disposition home or self-care (01) ==
LOC: C.SDS 09:48
PROVIDERS: ATTEND Urology
DX: N40.1 Benign prostatic hyperplasia with lower urinary tract symptoms (principal); N32.0 Bladder-neck obstruction; N13.8 Other obstructive and reflux uropathy
CPT/HCPCS: 52648; J0744; J1170; J1580

== ENCOUNTER 2018-05-30 10:47 | Inpatient (IN) | payer MEDICARE, OTHER ==
[~2018-05-30 10:47] MED LIST: Fluticasone-Vilanterol 100/25mcg Diskus INH SCH
[2018-05-30 10:48] VITALS: BMI 19.0
[2018-05-30 12:22] LABS: BASO # 0.1 K/uL (0.0-0.2); BASO % 0.7 % (0.0-2.0); EOS # 0.2 K/uL (0.0-0.7); EOS % 2.5 % (0.0-4.0); LYMPH # 1.8 K/uL (1.0-4.3); LYMPH % 22.6 % (20.0-40.0); MEAN CORPUSCULAR HEMOGLOBIN 32.9 pg (27.0-31.0); MEAN CORPUSCULAR HGB CONC 32.8 g/dL (33.0-37.0); MEAN PLATELET VOLUME 8.8 fL (7.2-11.7); MONO # 0.6 K/uL (0.0-0.8); MONO % 7.8 % (0.0-10.0); NEUT # 5.2 K/uL (1.8-7.0); NEUT % 66.4 % (50.0-75.0); RBC 4.6 Mil/uL (4.40-5.90); RED CELL DISTRIBUTION WIDTH 13.8 % (11.5-14.5); WHITE BLOOD COUNT 7.9 K/uL (4.8-10.8)
[2018-05-30 12:24] LABS: URINE BILIRUBIN NEGATIVE (NEGATIVE); URINE BLOOD NEGATIVE (NEGATIVE); URINE CLARITY Clear (Clear); URINE COLOR Yellow (YELLOW); URINE GLUCOSE (UA) NORMAL (Normal); URINE LEUKOCYTE ESTERASE TRACE Leu/uL (Negative); URINE PROTEIN 1+ mg/dL (NEGATIVE); URINE UROBILINOGEN NORMAL mg/dL (0.2-1.0)
[2018-05-30 12:25] LABS: HEMOGLOBIN 15.1 g/dL (12.0-18.0); MEAN CELL VOLUME 100.5 fL (80.0-94.0)
[2018-05-30 12:38] LABS: ALB/GLOB RATIO 1.4 (1.0-2.1); ALBUMIN 4.4 g/dL (3.5-5.0); ALT/SGPT 60 U/L (21-72); AST/SGOT 49 U/L (17-59); BLOOD UREA NITROGEN 24 mg/dL (9-20); CALCIUM 9.1 mg/dl (8.6-10.4); GFR NON-AFRICAN AMERICAN > 60
[2018-05-30 12:48] LABS: B-TYPE NATRIURETIC PEPTIDE 5730 pg/mL (0-900)
--- NOTE | 2018-05-30 12:51 | RAD ---
HISTORY: SOB COMPARISON: Chest x-ray performed 12/24/17 TECHNIQUE: Chest PA and lateral FINDINGS: LUNGS: Biapical pleural thickening. Patchy bibasilar atelectasis. Retrocardiac atelectasis/infiltrates. Please note that chest x-ray has limited sensitivity for the detection of pulmonary masses. PLEURA: Trace bilateral pleural effusions. No definite pneumothorax . CARDIOVASCULAR: Left-sided AICD. Cardiomegaly. Ectatic aorta. Atherosclerotic calcifications. OSSEOUS STRUCTURES: Scoliosis. Osseous demineralization. Degenerative changes. VISUALIZED UPPER ABDOMEN: Unremarkable. OTHER FINDINGS: None. IMPRESSION: Biapical pleural thickening. Patchy bibasilar atelectasis. Retrocardiac atelectasis/infiltrate. Trace bilateral pleural effusions. Left-sided AICD. Cardiomegaly. Ectatic aorta. Atherosclerotic calcifications.
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
--- NOTE | 2018-05-30 13:48 | C.PDOC ---
History Of Present Illness 73 y/o male, w/ PMhx of COPD and AICD, brought to ER by BLS c/o SOB which began at 9 pm last night. Patient states the SOB is worse with lying down and moving. Denies having CP, nausea, and vomiting. Time Seen by Provider: 05/30/18 11:10 Chief Complaint (Nursing): Shortness Of Breath History Per: Patient History/Exam Limitations: no limitations Onset/Duration Of Symptoms: Days Current Symptoms Are (Timing): Still Present Past Medical History Reviewed: Historical Data, Nursing Documentation, Vital Signs Vital Signs: Last Vital Signs Temp 98 F 05/30/18 10:55 Pulse 94 H 05/30/18 13:10 Resp 16 05/30/18 13:10 BP 118/83 05/30/18 13:10 Pulse Ox 97 05/30/18 13:10 - Medical History PMH: Back Problems, Benign Prostatic Hyperplasia, Cardia Arrhythmia, CHF, COPD, Depression, Diabetes, Diverticulitis, HTN, Hypercholesterolemia, Kidney Stones, Chronic Kidney Disease Surgical History: Hernia Repair, Pacemaker - [facility] Procedures BYPASS ILEUM TO TRANSVERSE COLON, OPEN APPROACH (05/08/15) BYPASS SIGMOID COLON TO CUTANEOUS, OPEN APPROACH (05/08/15) EXCISION OF RECTUM, OPEN APPROACH (03/19/16) EXTIRPATION OF MATTER FROM GI TRACT, OPEN APPROACH (03/19/16) INSERTION OF INFUSION DEV INTO R BRACH VEIN, PERC APPROACH (05/08/15) INTRODUCTION OF NUTRITIONAL INTO PERIPH VEIN, PERC APPROACH (05/08/15) IRRIGATION OF PERITONEAL CAVITY USING IRRIGAT, PERC APPROACH (05/08/15) REPAIR ABDOMINAL WALL, OPEN APPROACH (03/19/16) REPAIR ABDOMINAL WALL, STOMA, EXTERNAL APPROACH (02/13/16) RESECTION OF RIGHT LARGE INTESTINE, OPEN APPROACH (05/08/15) TRANSFUSE NONAUT RED BLOOD CELLS IN PERIPH VEIN, PERC (03/19/16) ULTRASONOGRAPHY OF RIGHT UPPER EXTREMITY VEINS, GUIDANCE (05/08/15) VACCINATION NEC (02/04/14) Family History: States: No Known Family Hx - Social History Hx Tobacco Use: Yes Hx Alcohol Use: No Hx Substance Use: No - Immunization History Hx Tetanus Toxoid Vaccination: No Hx Influenza Vaccination: Yes Hx Pneumococcal Vaccination: No Review Of Systems Constitutional: Negative for: Fever, Chills Cardiovascular: Negative for: Chest Pain Respiratory: Positive for: Shortness of Breath Gastrointestinal: Negative for: Nausea, Vomiting Physical Exam - Physical Exam Appears: Non-toxic, No Acute Distress, Other (speaking in full sentences) Skin: Normal Color, Warm, Dry Head: Atraumatic, Normacephalic Eye(s): bilateral: Normal Inspection Chest: Symmetrical, No Tenderness Cardiovascular: Rhythm Regular Respiratory: Normal Breath Sounds, No Rales, No Rhonchi, No Wheezing Gastrointestinal/Abdominal: Soft, No Tenderness, No Guarding, No Rebound Extremity: Normal ROM, No Pedal Edema Neurological/Psych: Oriented x3, Normal Speech, Normal Cognition ED Course And Treatment - Laboratory Results Result Diagrams: 05/30/18 12:14 05/30/18 12:14 Lab Results: Troponin I 0.0330 ng/mL (0.00-0.120) 05/30/18 12:14 NT-Pro-B Natriuret Pep 5730 pg/mL (0-900) H 05/30/18 12:14 Total Bilirubin 1.0 mg/dL (0.2-1.3) 05/30/18 12:14 AST 49 U/L (17-59) 05/30/18 12:14 ALT 60 U/L (21-72) 05/30/18 12:14 Alkaline Phosphatase 103 U/L (38-126) 05/30/18 12:14 Total Protein 7.6 g/dL (6.3-8.3) 05/30/18 12:14 Albumin 4.4 g/dL (3.5-5.0) 05/30/18 12:14 Globulin 3.2 gm/dL (2.2-3.9) 05/30/18 12:14 Albumin/Globulin Ratio 1.4 (1.0-2.1) 05/30/18 12:14 Urine Color Yellow (YELLOW) 05/30/18 12:14 Urine Clarity Clear (Clear) 05/30/18 12:14 Urine pH 5.0 (5.0-8.0) 05/30/18 12:14 Ur Specific Roy 1.014 (1.003-1.030) 05/30/18 12:14 Urine Protein 1+ mg/dL (NEGATIVE) H 05/30/18 12:14 Urine Glucose (UA) Normal mg/dL (Normal) 05/30/18 12:14 Urine Ketones Negative mg/dL (NEGATIVE) 05/30/18 12:14 Urine Blood Negative (NEGATIVE) 05/30/18 12:14 Urine Nitrate Negative (NEGATIVE) 05/30/18 12:14 Urine Bilirubin Negative (NEGATIVE) 05/30/18 12:14 Urine Urobilinogen Normal mg/dL (0.2-1.0) 05/30/18 12:14 Ur Leukocyte Esterase Trace Aleksey/uL (Negative) 05/30/18 12:14 Urine WBC (Auto) 12 /hpf (0-5) H 05/30/18 12:14 Urine RBC (Auto) 1 /hpf (0-3) 05/30/18 12:14 ECG: Interpreted By Me, Viewed By Me ECG Rhythm: A Paced Interpretation Of ECG: Atrial Paced Rhythm with occasional sinus complexes, occasional premature ventriculr responses and bifascicular block Rate From EC O2 Sat by Pulse Oximetry: 97 (RA) Pulse Ox Interpretation: Normal - Other Rad CXR X-Ray: Viewed By Me, Read By Radiologist Interpretation: IMPRESSION: Biapical pleural thickening. Patchy bibasilar atelectasis. Retrocardiac atelectasis/infiltrate. Trace bilateral pleural effusions. Left-sided AICD. Cardiomegaly. Ectatic aorta. Atherosclerotic calcifications. Medical Decision Making Medical Decision Making: Plan: --Labs --UA --CXR --Lasix IV Updates: Case discussed with and medical engineer. Patient will be admitted for CHF exacerbation. Disposition Discussed With Dr.: Bandar Gold Jr. Doctor Will See Patient In The: Hospital - Disposition Disposition: HOSPITALIZED Disposition Time: 14:08 Condition: FAIR - Clinical Impression Clinical Impression: CHF (congestive heart failure) - PA / WARD SUPERVISOR / Resident Statement MD/DO has reviewed & agrees with the documentation as recorded. - Scribe Statement The provider has reviewed the documentation as recorded by the Khang Butcher Provider Attestation All medical record entries made by the Scribe were at my direction and personally dictated by me. I have reviewed the chart and agree that the record accurately reflects my personal performance of the history, physical exam, medical decision making, and the department course for this patient. I have also personally directed, reviewed, and agree with the discharge instructions and disposition.
[2018-05-30] MEDS: Albuterol-Ipratrop 3 mg / 0.5 (3 ml) UD INH SCH ×2 (16:00→21:45)
[2018-05-30] MEDS: MethylPREDNISolone 40 mg Vial IVP SCH (16:01)
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
[2018-05-31] MEDS: Albuterol-Ipratrop 3 mg / 0.5 (3 ml) UD INH SCH ×6 (00:38→20:59)
[2018-05-31 07:33] LABS: BASO % 0.1 % (0.0-2.0); HEMOGLOBIN 14.2 g/dL (12.0-18.0); LYMPH # 0.8 K/uL (1.0-4.3); LYMPH % 8.1 % (20.0-40.0); MEAN CELL VOLUME 101.3 fL (80.0-94.0); MEAN CORPUSCULAR HEMOGLOBIN 33.5 pg (27.0-31.0); MEAN CORPUSCULAR HGB CONC 33.1 g/dL (33.0-37.0); MEAN PLATELET VOLUME 8.9 fL (7.2-11.7); MONO # 0.2 K/uL (0.0-0.8); MONO % 2.2 % (0.0-10.0); NEUT # 8.3 K/uL (1.8-7.0); NEUT % 89.6 % (50.0-75.0); PLATELET COUNT 226 K/uL (130-400); RBC 4.23 Mil/uL (4.40-5.90); RED CELL DISTRIBUTION WIDTH 13.9 % (11.5-14.5); WHITE BLOOD COUNT 9.3 K/uL (4.8-10.8)
[2018-05-31 08:07] LABS: ALB/GLOB RATIO 1.3 (1.0-2.1); ALBUMIN 3.7 g/dL (3.5-5.0); CALCIUM 8.7 mg/dl (8.6-10.4)
[2018-05-31 08:49] LABS: BANDS 6 % (0-2); LYMPHOCYTE 9 % (20-40); NEUTROPHIL 83 % (50-75); PLATELET ESTIMATE NORMAL (NORMAL); REACTIVE LYMPHOCYTES 2 % (0-0); TOTAL CELLS COUNTED 100
[2018-05-31 08:50] LABS: OVALOCYTES SLIGHT
--- NOTE | 2018-05-31 09:51 | CP.PCM.PN ---
<UmbertoSeble LateshaWesley - Last Filed: 05/31/18 19:05> Subjective - Date & Time of Evaluation Date of Evaluation: 05/31/18 Time of Evaluation: 08:00 - Subjective Subjective: Cardiology Progress Note: Patient was seen and examined at bedside in the AM. Patient states he is feeling much better than yesterday. He states he never knew he wasn't suppose to over drink iced tea. He denies chest pain, shortness of breath, palpitations, fever, chills, nausea or vomiting. Objective - Vital Signs/Intake and Output Vital Signs (last 24 hours): Temp Pulse Resp BP Pulse Ox 97.5 F L 87 18 120/61 97 05/31/18 07:00 05/31/18 08:12 05/31/18 07:00 05/31/18 07:00 05/31/18 07:00 - Medications Medications: Current Medications Albuterol/Ipratropium (Duoneb 3 Mg/0.5 Mg (3 Ml) Ud) 3 ml INH RQ4 [facility] Last Admin: 05/31/18 03:30 Dose: Not Given Aspirin (Ecotrin) 81 mg PO DAILY [facility] Enalapril Maleate (Vasotec) 20 mg PO DAILY [facility] Enoxaparin Sodium (Lovenox) 40 mg SC DAILY [facility] Finasteride (Proscar) 5 mg PO DAILY [facility] Furosemide (Lasix) 40 mg IVP BID [facility] Last Admin: 05/30/18 18:12 Dose: 40 mg Ceftriaxone Sodium 1 gm/ (Sodium Chloride) 100 mls @ 100 mls/hr IVPB Q24H [facility]; Protocol Methylprednisolone (Solu-Medrol) 40 mg IVP Q24H [facility] Last Admin: 05/30/18 16:01 Dose: 40 mg Metoprolol Tartrate (Lopressor) 50 mg PO BID [facility] Last Admin: 05/30/18 18:12 Dose: 50 mg Rosuvastatin Calcium (Crestor) 10 mg PO HS [facility] Last Admin: 05/30/18 21:49 Dose: 10 mg Tamsulosin HCl (Flomax) 0.4 mg PO DAILY [facility] - Labs Labs: 05/31/18 07:22 05/31/18 07:22 - Constitutional Appears: No Acute Distress - Head Exam Head Exam: ATRAUMATIC, NORMAL INSPECTION - Eye Exam Eye Exam: EOMI, Normal appearance - ENT Exam ENT Exam: Mucous Membranes Moist - Respiratory Exam Respiratory Exam: Clear to Ausculation Bilateral, NORMAL BREATHING PATTERN - Cardiovascular Exam Cardiovascular Exam: Irregular Rhythm - GI/Abdominal Exam GI & Abdominal Exam: Soft, Normal Bowel Sounds. absent: Tenderness - Extremities Exam Extremities Exam: Normal Inspection - Neurological Exam Neurological Exam: Alert, Awake, Oriented x3 - Psychiatric Exam Psychiatric exam: Normal Affect - Skin Skin Exam: Normal Color Assessment and Plan - Assessment and Plan (Free Text) Assessment: 73 yo male with past medical history of CHF (left sided AICD), COPD, HTN, HLD, BPH who came to the ER for shortness of breath. CHF exacerbation - Chest Xray: Biapical pleural thickening. Patchy bibasilar atelectasis. Retrocardiac atelectasis/infiltrate. Trace bilateral pleural effusions. Left- sided AICD. Cardiomegaly. Ectatic aorta. Atherosclerotic calcifications. - proBNP: 5,730 --> 5510 - Trop negative - ECHO (08/19/2015): EF 50-55% - f/u repeat ECHO - Medications: * Aspirin 81 mg PO daily * Enalapril 20 mg PO daily * Metoprolol 50 mg PO BID * discontinued Lasix Hypertension - Enalapril 20 mg PO daily - Metoprolol 50 mg PO BID Hyperlipidemia - Crestor 10 mg PO HS Case discussed with Dr. Trell Shipman PGY-2 <Giovanny Cai - Last Filed: 05/31/18 23:01> Objective - Vital Signs/Intake and Output Vital Signs (last 24 hours): Temp Pulse Resp BP Pulse Ox 97.8 F 99 H 20 109/58 L 97 05/31/18 15:00 05/31/18 21:23 05/31/18 15:00 05/31/18 17:09 05/31/18 15:00 Intake and Output: 05/31/18 06/01/18 18:59 06:59 Intake Total 400 500 Balance 400 500 - Medications Medications: Current Medications Albuterol/Ipratropium (Duoneb 3 Mg/0.5 Mg (3 Ml) Ud) 3 ml INH RQ4 [facility] Last Admin: 05/31/18 20:59 Dose: 3 ml Aspirin (Ecotrin) 81 mg PO DAILY [facility] Last Admin: 05/31/18 10:02 Dose: 81 mg Enalapril Maleate (Vasotec) 20 mg PO DAILY [facility] Last Admin: 05/31/18 10:03 Dose: 20 mg Finasteride (Proscar) 5 mg PO DAILY [facility] Last Admin: 05/31/18 10:02 Dose: 5 mg Heparin Sodium (Porcine) (Heparin) 5,000 units SC Q8 [facility] Last Admin: 05/31/18 21:19 Dose: Not Given Ceftriaxone Sodium 1 gm/ (Sodium Chloride) 100 mls @ 100 mls/hr IVPB Q24H [facility]; Protocol Last Admin: 05/31/18 10:03 Dose: 100 mls/hr Methylprednisolone (Solu-Medrol) 40 mg IVP Q24H [facility] Last Admin: 05/31/18 14:45 Dose: 40 mg Metoprolol Tartrate (Lopressor) 50 mg PO BID [facility] Last Admin: 05/31/18 19:09 Dose: Not Given Rosuvastatin Calcium (Crestor) 10 mg PO HS [facility] Last Admin: 05/31/18 21:03 Dose: 10 mg Tamsulosin HCl (Flomax) 0.4 mg PO DAILY [facility] Last Admin: 05/31/18 10:11 Dose: 0.4 mg - Labs Labs: 05/31/18 07:22 05/31/18 07:22 Assessment and Plan - Assessment and Plan (Free Text) Assessment: Patient seen and evaluated personally by me. Plan of care d/w the medical records coder and as documented
[2018-05-31] MEDS ORDERED: Enoxaparin 40 mg Syringe SC SCH (10:00)
--- NOTE | 2018-05-31 11:44 | CARD ---
APPROVED REPORT Date of service: 05/30/2018 EKG Measurement Heart [id number] <Conclusion> Atrial-paced rhythm with occasional sinus complexes and with occasional premature ventricular complexes Right bundle branch block Left anterior fascicular block Bifascicular block Left ventricular hypertrophy with repolarization abnormality Abnormal ECG
[2018-05-31] MEDS: MethylPREDNISolone 40 mg Vial IVP SCH (14:45)
--- NOTE | 2018-05-31 15:03 | CP.PCM.PN ---
Subjective - Date & Time of Evaluation Date of Evaluation: 05/31/18 Time of Evaluation: 14:56 - Subjective Subjective: PGY-1 Medicine Progress Note for Dr. Gold's service S/E at bedside. No acute events overnight. Offers 0 acute complaints. Denies fevers, chest pain, sob, n/v, constipation or diarrhea, and dysuria. Objective - Vital Signs/Intake and Output Vital Signs (last 24 hours): Temp Pulse Resp BP Pulse Ox 97.5 F L 78 18 121/64 94 L 05/31/18 07:00 05/31/18 13:46 05/31/18 07:00 05/31/18 10:03 05/31/18 13:46 Intake and Output: 05/31/18 05/31/18 06:59 18:59 Intake Total 400 Balance 400 - Medications Medications: Current Medications Albuterol/Ipratropium (Duoneb 3 Mg/0.5 Mg (3 Ml) Ud) 3 ml INH RQ4 [facility] Last Admin: 05/31/18 11:40 Dose: 3 ml Aspirin (Ecotrin) 81 mg PO DAILY [facility] Last Admin: 05/31/18 10:02 Dose: 81 mg Enalapril Maleate (Vasotec) 20 mg PO DAILY [facility] Last Admin: 05/31/18 10:03 Dose: 20 mg Enoxaparin Sodium (Lovenox) 40 mg SC DAILY [facility] Last Admin: 05/31/18 10:01 Dose: 40 mg Finasteride (Proscar) 5 mg PO DAILY [facility] Last Admin: 05/31/18 10:02 Dose: 5 mg Furosemide (Lasix) 20 mg IVP BID [facility] Ceftriaxone Sodium 1 gm/ (Sodium Chloride) 100 mls @ 100 mls/hr IVPB Q24H [facility]; Protocol Last Admin: 05/31/18 10:03 Dose: 100 mls/hr Methylprednisolone (Solu-Medrol) 40 mg IVP Q24H [facility] Last Admin: 05/31/18 14:45 Dose: 40 mg Metoprolol Tartrate (Lopressor) 50 mg PO BID [facility] Last Admin: 05/31/18 10:02 Dose: 50 mg Rosuvastatin Calcium (Crestor) 10 mg PO HS [facility] Last Admin: 05/30/18 21:49 Dose: 10 mg Tamsulosin HCl (Flomax) 0.4 mg PO DAILY [facility] Last Admin: 05/31/18 10:11 Dose: 0.4 mg - Labs Labs: 05/31/18 07:22 05/31/18 07:22 - Constitutional Appears: Non-toxic, No Acute Distress - Head Exam Head Exam: NORMAL INSPECTION, NORMOCEPHALIC - Eye Exam Eye Exam: EOMI, Normal appearance. absent: Nystagmus, Scleral icterus - ENT Exam ENT Exam: Mucous Membranes Moist - Respiratory Exam Respiratory Exam: Clear to Ausculation Bilateral, NORMAL BREATHING PATTERN. absent: Rales, Rhonchi, Wheezes - Cardiovascular Exam Cardiovascular Exam: REGULAR RHYTHM, +S1, +S2. absent: Tachycardia - GI/Abdominal Exam GI & Abdominal Exam: Soft, Normal Bowel Sounds. absent: Distended, Firm, Guarding, Rigid, Tenderness - Extremities Exam Extremities Exam: Normal Inspection. absent: Calf Tenderness, Pedal Edema - Back Exam Back Exam: NORMAL INSPECTION. absent: CVA tenderness (L), CVA tenderness (R) - Neurological Exam Neurological Exam: Alert, Awake, Oriented x3 - Psychiatric Exam Psychiatric exam: Normal Affect, Normal Mood - Skin Skin Exam: Dry, Intact, Normal Color Assessment and Plan - Assessment and Plan (Free Text) Assessment: Patient is a 73 yo male with a history of CHF, COPD, HTN, HLD, BPH and alcohol and tobacco use who presented with SOB. He reports he quit smoking 2 days ago. he feels better with supplemental O2, which he does not use at home. By physical exam, patient's presentation is more consistent with COPD than CHF. COPD exacerbation Pulmonology consulted (Kashif) Duoneb Q4H Breo daily Solumedrol 40 IV daily Ceftriaxone 1gm IVPB daily Congestive heart failure- s/p AICD/pacemaker Cardiology Consulted Trell- recs as below CXR: Biapical pleural thickening. Patchy bibasilar atelectasis. Retrocardiac atelectasis/infiltrate. Trace bilateral pleural effusions. Left-sided AICD. Cardiomegaly. Ectatic aorta. Atherosclerotic calcifications. Echo August 2015: EF 50-55% Echo pending EKG: NSR BNP 5730 Trop negative Heart healthy diet Strict I's & O's Daily weights ASA 81 mg PO daily Metoprolol 50 mg PO BID BRIT Fluid restriction held Enalapril held Lovenox held Repeat CMP in AM Hypertension Vitals Q4H Enalapril 20 mg PO daily- held Metoprolol 50 mg PO BID Hyperlipidemia Crestor 10 mg PO QHS Benign prostatic hyperplasia Flomax 0.4 mg PO daily Proscar 5 mg PO daily Tobacco use disorder- patient reports quitting 2 days ago 60+ years Encourage cessation Ppx: VTE: SCDs, Heparin 5000 sc q daily GI: not indicated Code status: full code Medical Management d/w Dr. Alla Alva PGY-1
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
[2018-06-01] MEDS: Albuterol-Ipratrop 3 mg / 0.5 (3 ml) UD INH SCH ×2 (00:15→03:50)
--- NOTE | 2018-06-01 07:01 | CP.PCM.PN ---
Subjective - Date & Time of Evaluation Date of Evaluation: 06/01/18 Objective - Vital Signs/Intake and Output Vital Signs (last 24 hours): Temp Pulse Resp BP Pulse Ox 97.7 F 50 L 20 108/49 L 95 05/31/18 23:00 05/31/18 23:00 05/31/18 23:00 05/31/18 23:00 05/31/18 23:00 Intake and Output: 06/01/18 06/01/18 06:59 18:59 Intake Total 500 Balance 500 - Medications Medications: Current Medications Albuterol/Ipratropium (Duoneb 3 Mg/0.5 Mg (3 Ml) Ud) 3 ml INH RQ4 [facility] Last Admin: 06/01/18 03:50 Dose: Not Given Aspirin (Ecotrin) 81 mg PO DAILY [facility] Last Admin: 05/31/18 10:02 Dose: 81 mg Enalapril Maleate (Vasotec) 20 mg PO DAILY [facility] Last Admin: 05/31/18 10:03 Dose: 20 mg Finasteride (Proscar) 5 mg PO DAILY [facility] Last Admin: 05/31/18 10:02 Dose: 5 mg Heparin Sodium (Porcine) (Heparin) 5,000 units SC Q8 [facility] Last Admin: 06/01/18 05:29 Dose: 5,000 units Ceftriaxone Sodium 1 gm/ (Sodium Chloride) 100 mls @ 100 mls/hr IVPB Q24H [facility]; Protocol Last Admin: 05/31/18 10:03 Dose: 100 mls/hr Methylprednisolone (Solu-Medrol) 40 mg IVP Q24H [facility] Last Admin: 05/31/18 14:45 Dose: 40 mg Metoprolol Tartrate (Lopressor) 50 mg PO BID [facility] Last Admin: 05/31/18 19:09 Dose: Not Given Rosuvastatin Calcium (Crestor) 10 mg PO HS [facility] Last Admin: 05/31/18 21:03 Dose: 10 mg Tamsulosin HCl (Flomax) 0.4 mg PO DAILY [facility] Last Admin: 05/31/18 10:11 Dose: 0.4 mg - Labs Labs: 05/31/18 07:22 05/31/18 07:22
[2018-06-01] MEDS ORDERED: Albuterol-Ipratrop 3 mg / 0.5 (3 ml) UD INH PRN (07:04)
[2018-06-01 07:28] LABS: BASO % 0.1 % (0.0-2.0); HEMOGLOBIN 13.3 g/dL (12.0-18.0); LYMPH # 0.9 K/uL (1.0-4.3); LYMPH % 5.3 % (20.0-40.0); MEAN CELL VOLUME 100.7 fL (80.0-94.0); MEAN CORPUSCULAR HGB CONC 32.8 g/dL (33.0-37.0); MEAN PLATELET VOLUME 8.6 fL (7.2-11.7); MONO # 0.6 K/uL (0.0-0.8); MONO % 3.5 % (0.0-10.0); NEUT # 15.5 K/uL (1.8-7.0); NEUT % 91.1 % (50.0-75.0); PLATELET COUNT 232 K/uL (130-400); RBC 4.02 Mil/uL (4.40-5.90)
[2018-06-01 07:46] LABS: ALB/GLOB RATIO 1.4 (1.0-2.1); ALBUMIN 3.7 g/dL (3.5-5.0); CALCIUM 8.3 mg/dl (8.6-10.4)
[2018-06-01 10:12] LABS: BASOPHIL 1 % (0-2); LYMPHOCYTE 5 % (20-40); MONOCYTE 3 % (0-10); NEUTROPHIL 89 % (50-75); OVALOCYTES SLIGHT; PLATELET ESTIMATE NORMAL (NORMAL); REACTIVE LYMPHOCYTES 2 % (0-0); TOTAL CELLS COUNTED 100
--- NOTE | 2018-06-01 10:37 | CP.PCM.DIS ---
Provider - Provider Date of Admission: 05/31/18 15:29 Attending physician: Bandar Gold Jr, MD Primary care physician: Dr. Gold Consults: 05/30/18 14:52 Cardiology Consult Routine Comment: Consulting Provider: Giovanny Cai Consulting Physician: Giovanny Cai Reason for Consult: chf- s/p aicd Pulmonology Consult Routine Comment: Consulting Provider: Ham Rowland Consulting Physician: Ham Rowland Reason for Consult: copd Time Spent in preparation of Discharge (in minutes): 29 Diagnosis - Discharge Diagnosis (1) CHF exacerbation Status: Acute (2) COPD exacerbation Status: Acute Hospital Course - Lab Results Lab Results: Most Recent Lab Values WBC 17.0 K/uL (4.8-10.8) H D 06/01/18 07:09 RBC 4.02 Mil/uL (4.40-5.90) L 06/01/18 07:09 Hgb 13.3 g/dL (12.0-18.0) 06/01/18 07:09 Hct 40.4 % (35.0-51.0) 06/01/18 07:09 MCV 100.7 fL (80.0-94.0) H 06/01/18 07:09 MCH 33.0 pg (27.0-31.0) H 06/01/18 07:09 MCHC 32.8 g/dL (33.0-37.0) L 06/01/18 07:09 RDW 14.0 % (11.5-14.5) 06/01/18 07:09 Plt Count 232 K/uL (130-400) 06/01/18 07:09 MPV 8.6 fL (7.2-11.7) 06/01/18 07:09 Neut % (Auto) 91.1 % (50.0-75.0) H 06/01/18 07:09 Lymph % (Auto) 5.3 % (20.0-40.0) L 06/01/18 07:09 [place] % (Auto) 3.5 % (0.0-10.0) 06/01/18 07:09 Eos % (Auto) 0.0 % (0.0-4.0) 06/01/18 07:09 Baso % (Auto) 0.1 % (0.0-2.0) 06/01/18 07:09 Neut # (Auto) 15.5 K/uL (1.8-7.0) H 06/01/18 07:09 Lymph # (Auto) 0.9 K/uL (1.0-4.3) L 06/01/18 07:09 [place] # (Auto) 0.6 K/uL (0.0-0.8) 06/01/18 07:09 Eos # (Auto) 0.0 K/uL (0.0-0.7) 06/01/18 07:09 Baso # (Auto) 0.0 K/uL (0.0-0.2) 06/01/18 07:09 Neutrophils % (Manual) 89 % (50-75) H 06/01/18 07:09 Band Neutrophils % 6 % (0-2) H 05/31/18 07:22 Lymphocytes % (Manual) 5 % (20-40) L 06/01/18 07:09 Reactive Lymphs % 2 % (0-0) H 06/01/18 07:09 Monocytes % (Manual) 3 % (0-10) 06/01/18 07:09 Basophils % (Manual) 1 % (0-2) 06/01/18 07:09 Platelet Estimate Normal (NORMAL) 06/01/18 07:09 Macrocytosis (manual) Slight 06/01/18 07:09 Ovalocytes Slight 06/01/18 07:09 Sodium 137 mmol/L (132-148) 06/01/18 07:09 Potassium 3.9 mmol/L (3.6-5.2) 06/01/18 07:09 Chloride 104 mmol/L (98-107) 06/01/18 07:09 Carbon Dioxide 24 mmol/L (22-30) 06/01/18 07:09 Anion Gap 14 (10-20) 06/01/18 07:09 BUN 65 mg/dL (9-20) H 06/01/18 07:09 Creatinine 2.0 mg/dL (0.8-1.5) H 06/01/18 07:09 Est GFR ( Amer) 40 06/01/18 07:09 Est GFR (Non-Af Amer) 33 06/01/18 07:09 Random Glucose 111 mg/dL (75-110) H 06/01/18 07:09 Calcium 8.3 mg/dl (8.6-10.4) L 06/01/18 07:09 Phosphorus 4.8 mg/dL (2.5-4.5) H 06/01/18 07:09 Magnesium 1.5 mg/dL (1.6-2.3) L 06/01/18 07:09 Total Bilirubin 0.4 mg/dL (0.2-1.3) 06/01/18 07:09 AST 22 U/L (17-59) 06/01/18 07:09 ALT 36 U/L (21-72) 06/01/18 07:09 Alkaline Phosphatase 71 U/L (38-126) 06/01/18 07:09 Troponin I 0.0330 ng/mL (0.00-0.120) 05/30/18 12:14 NT-Pro-B Natriuret Pep 5510 pg/mL (0-900) H 05/31/18 15:54 Total Protein 6.3 g/dL (6.3-8.3) 06/01/18 07:09 Albumin 3.7 g/dL (3.5-5.0) 06/01/18 07:09 Globulin 2.6 gm/dL (2.2-3.9) 06/01/18 07:09 Albumin/Globulin Ratio 1.4 (1.0-2.1) 06/01/18 07:09 Urine Color Yellow (YELLOW) 05/30/18 12:14 Urine Clarity Clear (Clear) 05/30/18 12:14 Urine pH 5.0 (5.0-8.0) 05/30/18 12:14 Ur Specific [place] 1.014 (1.003-1.030) 05/30/18 12:14 Urine Protein 1+ mg/dL (NEGATIVE) H 05/30/18 12:14 Urine Glucose (UA) Normal mg/dL (Normal) 05/30/18 12:14 Urine Ketones Negative mg/dL (NEGATIVE) 05/30/18 12:14 Urine Blood Negative (NEGATIVE) 05/30/18 12:14 Urine Nitrate Negative (NEGATIVE) 05/30/18 12:14 Urine Bilirubin Negative (NEGATIVE) 05/30/18 12:14 Urine Urobilinogen Normal mg/dL (0.2-1.0) 05/30/18 12:14 Ur Leukocyte Esterase Trace Aleksey/uL (Negative) 05/30/18 12:14 Urine WBC (Auto) 12 /hpf (0-5) H 05/30/18 12:14 Urine RBC (Auto) 1 /hpf (0-3) 05/30/18 12:14 - Hospital Course Hospital Course: Patient evaluated and treated for complaints of SOB. In ED, troponin was negative, bnp elevated-consistent with CHF diagnosis, cbc/cmp negative for acute abnormality. Chest xray revealed biapical pleural thickening, patchy bibasilar atelectasis, retrocardiac atelectasis/infiltrate, trace bilateral pleural effusions. Patient was subsequently treated with lasix, solu-medrol, duonebs. Cardiology, Dr. Cai consulted and pulmonology, Dr. Rowland consulted. IV abx added. Hospital course was complicated by several runs of vtach while on telemetry. Findings resemble MAT. Dr. Sullivan, EP consulted however patient was discharged prior to evaluation, with instructions to follow up with Dr. Cai. Patient also experienced BRIT while being treated; offending agents discontinued, and renal function returned to baseline. Pt stable for follow up outpatient. Acute SOB most likely 2/2 to drastic increase in fluid intake the night prior to symptom onset and admission. Symptoms relieved following diuresis. HPI on admission: "Patient is a 73 yo male with a history of CHF, COPD, HTN, HLD, BPH and alcohol and tobacco use who presents with SOB. Patient states he quit smoking cigarettes 2 days ago. He was gradually tapering down. He says he had acute onset SOB and lightheadedness. This was resolved with O2 via NC when coming to the ED. Patient denies chest pain,. He denies edema. SOB does not change with body position. He reports he has been taking all of his CHF medications (patient is not on Lasix). He has a rescue inhaler for COPD, but he has not used it in over 1 month. He denies fevers/chills, cough, wheezing, abdominal pain, nausea/vomiting." - Date & Time of H&P Date of H&P: 06/02/18 Time of H&P: 11:35 Discharge Exam - Head Exam Head Exam: ATRAUMATIC, NORMAL INSPECTION - Eye Exam Eye Exam: EOMI, Normal appearance - ENT Exam ENT Exam: Normal Exam - Neck Exam Neck exam: Normal Inspection - Respiratory Exam Respiratory Exam: Clear to PA & Lateral, NORMAL BREATHING PATTERN, UNREMARKABLE. absent: Wheezes - Cardiovascular Exam Cardiovascular Exam: REGULAR RHYTHM. absent: Tachycardia - GI/Abdominal Exam GI & Abdominal Exam: Normal Bowel Sounds, Unremarkable. absent: Soft, Tenderness - Extremities Exam Extremities exam: normal inspection - Neurological Exam Neurological exam: Alert, Normal Gait, Oriented x3 - Psychiatric Exam Psychiatric exam: Normal Affect, Normal Mood - Skin Skin Exam: Dry, Intact, Normal Color, Warm Discharge Plan - Discharge Medications Prescriptions: Azithromycin [Z-Bharat] 250 mg PO DAILY #6 tab Lidocaine 5% [Lidoderm] 5 % TP DAILY PRN #10 patch PRN Reason: Pain, Moderate (4-7) Methylprednisolone [Medrol Dose Pack (21 tabs)] 4 mg PO DAILY #21 mg - Follow Up Plan Condition: FAIR Disposition: HOME/ ROUTINE Instructions: Heart Healthy Diet, Azithromycin (Systemic), Heart Failure, Adult (DC), Lidocaine (Topical), Methylprednisolone Additional Instructions: Patient is stable for discharge home. Patient is instructed to resume all home medications as prescribed. Patient instructed to contact Dr. Cai within 1 day of discharge to schedule appointment with Dr. Cai to assess AICD; patient is cleared for discharge today per Dr. Cai. Patient is instructed to follow up with PMD, Dr. Gold; pulmonology, Dr. Rowland; within 2 weeks of discharge. Patient is being discharged with 3 additional prescriptions which need to be filled by the pharmacy; medications and instructions as follows: 1. Z-bharat, 250mg x6 tabs patient is to take 2 tabs by mouth on day 1, then 1 tab per day on days 2-5 until completion. Patient is encouraged to take medication with food. 2. Medrol-dose pack To be taken as instructed on packaging 3. lido-derm patches to be applied to the site of pain. Patient may apply 1 patch daily to be worn for up to 12 hours per day. Patient is instructed to return to the Emergency Department with any worsening of symptoms Referrals: Giovanny Cai MD [Staff Provider] - Ham Rowland MD [Staff Provider] -
[2018-06-01] MEDS: Magnesium Sulfate 1 gm in D5W 1 GM/100 ML BAG IVPB SCH (11:07)
--- NOTE | 2018-06-01 13:00 | CARD ---
APPROVED REPORT Date of service: 05/31/2018 EXAM: Two-dimensional and M-mode echocardiogram with Doppler and color Doppler. Other Information Quality : GoodRhythm : INDICATION Chest Pain Syncope COPD hypoxia 2D DIMENSIONS IVSd1.0 (0.7-1.1cm)Aortic Root (2D)4.0 (2.0-3.7cm) LVDd6.1 (3.9-5.9cm)PWd0.9 (0.7-1.1cm) LA [id number] (18-58mL)LVDs5.1 (2.5-4.0cm) FS (%) 16.4 %LVEF (%)46.0 (>50%) LVEF (Mann's)46.88 %IVC0.00 cm M-Mode DIMENSIONS RVDd1.43 (2.1-3.2cm)Left Atrium (MM)3.51 (2.5-4.0cm) IVSd0.81 (0.7-1.1cm)Aortic Root3.48 (2.2-3.7cm) LVDd6.57 (4.0-5.6cm)Aortic Cusp Exc.1.98 (1.5-2.0cm) PWd0.78 (0.7-1.1cm)FS (%) 25 % LVDs4.95 (2.0-3.8cm)LVEF (%)48 (>50%) Mitral Valve MV E Ryyeljtb59.3cm/sMV A Seyipaur58.6cm/sE/A ratio0.8 TDI Lateral E' Peak V3.34cm/sMedial E' Peak V3.01cm/sE/Lateral E'11.8 E/Medial E'13.1 Tricuspid Valve TR Peak Qloqgewz596am/sTR Peak Gr.[id number] LEFT VENTRICLE The Left Ventricle is mildly dilated. There is normal left ventricular wall thickness. Left ventricle systolic function is moderately to severely impaired. The Ejection Fraction is 25-30%.. There is global hypokinesis of the left ventricle. Transmitral Doppler flow pattern is Grade II-pseudonormal filling dynamics. Left ventricular filling pressure is increased No left ventricle thrombus noted on this study. There is no ventricular septal defect visualized. There is no left ventricular aneurysm. There is no mass noted in the left ventricle. RIGHT VENTRICLE The right ventricle is normal size. There is normal right ventricular wall thickness. The right ventricular systolic function is normal. ATRIA The left atrium is moderately dilated. The right atrium size is normal. The interatrial septum is intact with no evidence for an atrial septal defect. AORTIC VALVE The aortic valve is normal in structure and function. No aortic regurgitation is present. There is no aortic valvular stenosis. There is no aortic valvular vegetation. MITRAL VALVE The mitral valve is normal in structure and function. There is no evidence of mitral valve prolapse. There is no mitral valve stenosis. Mitral regurgitation is mild. TRICUSPID VALVE The tricuspid valve is normal in structure and function. There is moderate tricuspid regurgitation. Right ventricular systolic pressure is estimated at 50-60 mmHg. There is moderate-severe pulmonary hypertension. There is no tricuspid valve prolapse or vegetation. There is no tricuspid valve stenosis. PULMONIC VALVE The pulmonary valve is normal in structure and function. There is no pulmonic valvular regurgitation. There is no pulmonic valvular stenosis. GREAT VESSELS The aortic root is normal in size. The ascending aorta is normal in size. The pulmonary artery is normal. The IVC is normal in size and collapses >50% with inspiration. PERICARDIAL EFFUSION The pericardium appears normal. There is no pleural effusion. <Conclusion> The Left Ventricle is mildly dilated. Left ventricle systolic function is moderately to severely impaired. The Ejection Fraction is 25-30%.. Transmitral Doppler flow pattern is Grade II-pseudonormal filling dynamics. Left ventricular filling pressure is increased Mitral regurgitation is mild. There is moderate tricuspid regurgitation. Right ventricular systolic pressure is estimated at 50-60 mmHg. There is moderate-severe pulmonary hypertension.
[2018-06-01] MEDS: MethylPREDNISolone 40 mg Vial IVP SCH (14:10)
--- NOTE | 2018-06-01 15:00 | CP.PCM.PN ---
Subjective - Date & Time of Evaluation Date of Evaluation: 06/01/18 Time of Evaluation: 07:40 - Subjective Subjective: Patient examined at bedside. Per nursing, pt had approx 5 min of vtach overnight, pt asymptomatic during event. Patient reports he feels much better, denies shortness of breath or chest pain. Patient reports he is eager to go home. Objective - Vital Signs/Intake and Output Vital Signs (last 24 hours): Temp Pulse Resp BP Pulse Ox 98 F 87 18 118/76 95 06/01/18 07:58 06/01/18 12:59 06/01/18 07:58 06/01/18 07:58 06/01/18 07:58 Intake and Output: 06/01/18 06/01/18 06:59 18:59 Intake Total 500 1100 Balance 500 1100 - Medications Medications: Current Medications Albuterol/Ipratropium (Duoneb 3 Mg/0.5 Mg (3 Ml) Ud) 3 ml INH RQ4 PRN PRN Reason: Shortness of Breath Last Admin: 06/01/18 07:30 Dose: 3 ml Aspirin (Ecotrin) 81 mg PO DAILY [facility] Last Admin: 06/01/18 09:20 Dose: 81 mg Enalapril Maleate (Vasotec) 20 mg PO DAILY [facility] Last Admin: 05/31/18 10:03 Dose: 20 mg Finasteride (Proscar) 5 mg PO DAILY [facility] Last Admin: 06/01/18 09:19 Dose: 5 mg Heparin Sodium (Porcine) (Heparin) 5,000 units SC Q8 [facility] Last Admin: 06/01/18 14:10 Dose: Not Given Ceftriaxone Sodium 1 gm/ (Sodium Chloride) 100 mls @ 100 mls/hr IVPB Q24H [facility]; Protocol Last Admin: 06/01/18 09:20 Dose: 100 mls/hr Methylprednisolone (Solu-Medrol) 40 mg IVP Q24H [facility] Last Admin: 06/01/18 14:10 Dose: 40 mg Metoprolol Tartrate (Lopressor) 50 mg PO BID [facility] Last Admin: 06/01/18 09:20 Dose: 50 mg Pantoprazole Sodium (Protonix Inj) 40 mg IVP DAILY [facility] Last Admin: 06/01/18 09:20 Dose: 40 mg Rosuvastatin Calcium (Crestor) 10 mg PO HS [facility] Last Admin: 05/31/18 21:03 Dose: 10 mg Tamsulosin HCl (Flomax) 0.4 mg PO DAILY [facility] Last Admin: 06/01/18 09:19 Dose: 0.4 mg - Labs Labs: 06/01/18 07:09 06/01/18 07:09 - Constitutional Appears: Non-toxic, No Acute Distress - Head Exam Head Exam: ATRAUMATIC, NORMAL INSPECTION, NORMOCEPHALIC - Eye Exam Eye Exam: EOMI, Normal appearance - ENT Exam ENT Exam: Mucous Membranes Moist, Normal Exam - Respiratory Exam Respiratory Exam: NORMAL BREATHING PATTERN - Cardiovascular Exam Cardiovascular Exam: REGULAR RHYTHM, +S1, +S2 - GI/Abdominal Exam GI & Abdominal Exam: Soft, Normal Bowel Sounds. absent: Tenderness - Extremities Exam Extremities Exam: Normal Inspection. absent: Calf Tenderness, Pedal Edema - Neurological Exam Neurological Exam: Alert, Awake, Oriented x3 - Psychiatric Exam Psychiatric exam: Normal Affect, Normal Mood - Skin Skin Exam: Dry, Intact, Normal Color, Warm Assessment and Plan (1) CHF exacerbation Status: Acute (2) COPD exacerbation Status: Acute - Assessment and Plan (Free Text) Assessment: 73 yo male with pmhx of CHF, COPD, HTN, HLD, BPH and alcohol and tobacco abuse admitted for CHF exacerbation Plan: Due to overnight run of [employer], pt's discharge to be postponed pending EP evaluation Congestive heart failure- s/p AICD/pacemaker Cardiology Consulted Trell CXR: Biapical pleural thickening. Patchy bibasilar atelectasis. Retrocardiac atelectasis/infiltrate. Trace bilateral pleural effusions. Left-sided AICD. Cardiomegaly. Ectatic aorta. Atherosclerotic calcifications. Echo(08/23): EF 50-55% Echo(06/01/18): EF 25-30% EKG: NSR BNP 5730 Trop negative Strict I's & O's Daily weights ASA 81 mg PO daily Metoprolol 50 mg PO BID EP consult, Dr. Sullivan COPD exacerbation Pulmonology consulted, Dr. Kashif Dyer Q4H prn Solumedrol 40 IV qd Ceftriaxone 1gm IVPB qd BRIT worsening, BUN/Cr~65/2.0, avoid nephrotoxic agents Fluid restriction held Enalapril held Hypertension Enalapril 20 mg PO daily- held Metoprolol 50 mg PO BID Hyperlipidemia Crestor 10 mg PO HS Benign prostatic hyperplasia Flomax 0.4 mg PO daily Proscar 5 mg PO daily Ppx: VTE: SCDs, Heparin 5000 sc q8 GI: protonix iv, 2/2 iv CCS HHD Discussed with Dr. Alla Bello, PGY-1
--- NOTE | 2018-06-01 15:50 | CP.PCM.PN ---
<Seble Shipman - Last Filed: 06/01/18 17:38> Subjective - Date & Time of Evaluation Date of Evaluation: 06/01/18 Time of Evaluation: 10:00 - Subjective Subjective: Cardiology Progress Note with Dr. Cai: Patient was seen and examined at bedside in the AM. Per nurse patient had an episode of vtach early in the morning with a heart rate in the 150s and it lasted only for a few minutes. Patient states he was asymptomatic during the event. Patient denies chest pain, shortness of breath, palpitations, nausea, vomiting, fever, chills, diarrhea, constipation or dysuria. Objective - Vital Signs/Intake and Output Vital Signs (last 24 hours): Temp Pulse Resp BP Pulse Ox 98 F 87 18 118/76 95 06/01/18 07:58 06/01/18 12:59 06/01/18 07:58 06/01/18 07:58 06/01/18 07:58 Intake and Output: 06/01/18 06/01/18 06:59 18:59 Intake Total 500 1100 Balance 500 1100 - Medications Medications: Current Medications Albuterol/Ipratropium (Duoneb 3 Mg/0.5 Mg (3 Ml) Ud) 3 ml INH RQ4 PRN PRN Reason: Shortness of Breath Last Admin: 06/01/18 07:30 Dose: 3 ml Aspirin (Ecotrin) 81 mg PO DAILY [facility] Last Admin: 06/01/18 09:20 Dose: 81 mg Enalapril Maleate (Vasotec) 20 mg PO DAILY [facility] Last Admin: 05/31/18 10:03 Dose: 20 mg Finasteride (Proscar) 5 mg PO DAILY [facility] Last Admin: 06/01/18 09:19 Dose: 5 mg Heparin Sodium (Porcine) (Heparin) 5,000 units SC Q8 [facility] Last Admin: 06/01/18 14:10 Dose: Not Given Ceftriaxone Sodium 1 gm/ (Sodium Chloride) 100 mls @ 100 mls/hr IVPB Q24H [facility]; Protocol Last Admin: 06/01/18 09:20 Dose: 100 mls/hr Methylprednisolone (Solu-Medrol) 40 mg IVP Q24H [facility] Last Admin: 06/01/18 14:10 Dose: 40 mg Metoprolol Tartrate (Lopressor) 50 mg PO BID [facility] Last Admin: 06/01/18 09:20 Dose: 50 mg Pantoprazole Sodium (Protonix Inj) 40 mg IVP DAILY [facility] Last Admin: 06/01/18 09:20 Dose: 40 mg Rosuvastatin Calcium (Crestor) 10 mg PO [facility] Last Admin: 05/31/18 21:03 Dose: 10 mg Tamsulosin HCl (Flomax) 0.4 mg PO DAILY [facility] Last Admin: 06/01/18 09:19 Dose: 0.4 mg - Labs Labs: 06/01/18 07:09 06/01/18 07:09 - Constitutional Appears: No Acute Distress - Head Exam Head Exam: ATRAUMATIC, NORMAL INSPECTION - Eye Exam Eye Exam: EOMI, Normal appearance - ENT Exam ENT Exam: Mucous Membranes Moist - Respiratory Exam Respiratory Exam: Clear to Ausculation Bilateral, NORMAL BREATHING PATTERN - Cardiovascular Exam Cardiovascular Exam: REGULAR RHYTHM, +S1, +S2 - GI/Abdominal Exam GI & Abdominal Exam: Soft, Normal Bowel Sounds. absent: Tenderness - Extremities Exam Extremities Exam: Normal Inspection - Neurological Exam Neurological Exam: Alert, Awake, Oriented x3 - Psychiatric Exam Psychiatric exam: Normal Affect - Skin Skin Exam: Normal Color Assessment and Plan - Assessment and Plan (Free Text) Assessment: 73 yo male with past medical history of CHF (left sided AICD), COPD, HTN, HLD, BPH who came to the ER for shortness of breath. Patient had a run of vtach this morning and was asymptomatic. Dr. Sullivan was consulted --> help appreciated Systolic CHF - exacerbation - resolved - Chest Xray: Biapical pleural thickening. Patchy bibasilar atelectasis. Retrocardiac atelectasis/infiltrate. Trace bilateral pleural effusions. Left- sided AICD. Cardiomegaly. Ectatic aorta. Atherosclerotic calcifications. - proBNP: 5,730 --> 5510 - Trop negative - ECHO (08/19/2015): EF 50-55% - ECHO (06/01/18): EF 25-30% left ventricle systolic function is moderately to severely impaired. The left ventricle is mildly dilated. Mitral regurgitation is mild. - Medications: * Aspirin 81 mg PO daily * Enalapril 20 mg PO daily * Metoprolol 50 mg PO BID * discontinued Lasix Hypertension - Enalapril 20 mg PO daily - Metoprolol 50 mg PO BID Hyperlipidemia - Crestor 10 mg PO HS Case discussed with Dr. Trell Shipman PGY-2 <Giovanny Cai - Last Filed: 06/02/18 00:13> Objective - Vital Signs/Intake and Output Vital Signs (last 24 hours): Temp Pulse Resp BP Pulse Ox 98.1 F 82 20 122/64 98 06/01/18 15:00 06/01/18 17:18 06/01/18 15:00 06/01/18 17:18 06/01/18 15:00 Intake and Output: 06/01/18 06/02/18 18:59 06:59 Intake Total 1100 250 Output Total 500 Balance 1100 -250 - Medications Medications: Current Medications Aspirin (Ecotrin) 81 mg PO DAILY [facility] Last Admin: 06/01/18 09:20 Dose: 81 mg Enalapril Maleate (Vasotec) 20 mg PO DAILY [facility] Last Admin: 05/31/18 10:03 Dose: 20 mg Finasteride (Proscar) 5 mg PO DAILY [facility] Last Admin: 06/01/18 09:19 Dose: 5 mg Heparin Sodium (Porcine) (Heparin) 5,000 units SC Q8 [facility] Last Admin: 06/01/18 21:24 Dose: 5,000 units Ipratropium [place] (Atrovent) 0.5 mg IH RQ6 [facility] Metoprolol Tartrate (Lopressor) 50 mg PO BID [facility] Last Admin: 06/01/18 17:17 Dose: 50 mg Pantoprazole Sodium (Protonix Inj) 40 mg IVP DAILY [facility] Last Admin: 06/01/18 09:20 Dose: 40 mg Rosuvastatin Calcium (Crestor) 10 mg PO HS [facility] Last Admin: 06/01/18 21:24 Dose: 10 mg Tamsulosin HCl (Flomax) 0.4 mg PO DAILY [facility] Last Admin: 06/01/18 09:19 Dose: 0.4 mg - Labs Labs: 06/01/18 07:09 06/01/18 07:09 Assessment and Plan - Assessment and Plan (Free Text) Assessment: Patient seen and evaluated personally by me. Plan of care d/w the the resident and as documented
[2018-06-01 16:56] VITALS: RESP 20
--- NOTE | 2018-06-01 18:40 | CP.PCM.PN ---
Subjective - Date & Time of Evaluation Date of Evaluation: 06/01/18 Time of Evaluation: 18:00 - Subjective Subjective: Patient seen and examined Denies shortness of breath Run of V. tach Afebrile Denies any chest pain Objective - Vital Signs/Intake and Output Vital Signs (last 24 hours): Temp Pulse Resp BP Pulse Ox 98.1 F 82 20 122/64 98 06/01/18 15:00 06/01/18 17:18 06/01/18 15:00 06/01/18 17:18 06/01/18 15:00 Intake and Output: 06/01/18 06/01/18 06:59 18:59 Intake Total 500 1100 Balance 500 1100 - Medications Medications: Current Medications Aspirin (Ecotrin) 81 mg PO DAILY [facility] Last Admin: 06/01/18 09:20 Dose: 81 mg Enalapril Maleate (Vasotec) 20 mg PO DAILY [facility] Last Admin: 05/31/18 10:03 Dose: 20 mg Finasteride (Proscar) 5 mg PO DAILY [facility] Last Admin: 06/01/18 09:19 Dose: 5 mg Heparin Sodium (Porcine) (Heparin) 5,000 units SC Q8 [facility] Last Admin: 06/01/18 14:10 Dose: Not Given Ipratropium [place] (Atrovent) 0.5 mg IH RQ6 [facility] Metoprolol Tartrate (Lopressor) 50 mg PO BID [facility] Last Admin: 06/01/18 17:17 Dose: 50 mg Pantoprazole Sodium (Protonix Inj) 40 mg IVP DAILY [facility] Last Admin: 06/01/18 09:20 Dose: 40 mg Rosuvastatin Calcium (Crestor) 10 mg PO HS [facility] Last Admin: 05/31/18 21:03 Dose: 10 mg Tamsulosin HCl (Flomax) 0.4 mg PO DAILY [facility] Last Admin: 06/01/18 09:19 Dose: 0.4 mg - Labs Labs: 06/01/18 07:09 06/01/18 07:09 - Head Exam Head Exam: ATRAUMATIC, NORMOCEPHALIC - ENT Exam ENT Exam: Mucous Membranes Moist - Neck Exam Neck Exam: Normal Inspection - Respiratory Exam Respiratory Exam: Clear to Ausculation Bilateral - Cardiovascular Exam Cardiovascular Exam: REGULAR RHYTHM - GI/Abdominal Exam GI & Abdominal Exam: Soft Assessment and Plan (1) CHF (congestive heart failure) Assessment & Plan: Elevated white count secondary to steroids Discontinue Rocephin Discontinue DuoNeb and start ipratropium Discontinue IV steroids EPS consultation Enalapril on hold secondary to elevated creatinine Status: Acute (2) AICD (automatic cardioverter/defibrillator) present Status: Acute (3) COPD (chronic obstructive pulmonary disease) Status: Chronic
[2018-06-02] MEDS: Ipratropium 0.02% Inhal Soln (0.5 mg/2.5 ml) UD IH SCH ×2 (01:35→07:25)
[2018-06-02 07:57] VITALS: BP 131/73; TEMP 97.4; O2SAT 94
[2018-06-02 08:53] LABS: BASO % 0.1 % (0.0-2.0); LYMPH # 1.2 K/uL (1.0-4.3); MONO # 0.7 K/uL (0.0-0.8); MONO % 5.2 % (0.0-10.0)
[2018-06-02 09:00] LABS: HEMOGLOBIN 13.2 g/dL (12.0-18.0); LYMPH % 8.9 % (20.0-40.0); MEAN CELL VOLUME 101.7 fL (80.0-94.0); MEAN CORPUSCULAR HGB CONC 31.5 g/dL (33.0-37.0); MEAN PLATELET VOLUME 9.1 fL (7.2-11.7); NEUT # 11.2 K/uL (1.8-7.0); NEUT % 85.8 % (50.0-75.0); PLATELET COUNT 229 K/uL (130-400); RBC 4.11 Mil/uL (4.40-5.90); RED CELL DISTRIBUTION WIDTH 14.5 % (11.5-14.5)
[2018-06-02 09:13] LABS: ALB/GLOB RATIO 1.3 (1.0-2.1); ALBUMIN 3.7 g/dL (3.5-5.0); ALT/SGPT 32 U/L (21-72); AST/SGOT 30 U/L (17-59); BLOOD UREA NITROGEN 49 mg/dL (9-20); CALCIUM 8.4 mg/dl (8.6-10.4); GFR NON-AFRICAN AMERICAN 59
[2018-06-02 09:57] LABS: BANDS 1 % (0-2); LYMPHOCYTE 8 % (20-40); MONOCYTE 3 % (0-10); NEUTROPHIL 87 % (50-75); REACTIVE LYMPHOCYTES 1 % (0-0); TOTAL CELLS COUNTED 100
[2018-06-02 09:58] LABS: PLATELET ESTIMATE NORMAL (NORMAL)
[2018-06-02 13:51] VITALS: PULSE 82
--- NOTE | 2018-06-02 17:48 | CP.PCM.PN ---
Subjective - Date & Time of Evaluation Date of Evaluation: 06/02/18 Time of Evaluation: 12:20 - Subjective Subjective: Patient seen and examined at bedside. Complains of some intermittent palpitations that happened throughout the night. Per nursing he underwent two runs of v-tach with sats at 95%. Exam: General: Well appearing and in no acute distress. Heart: RRR S1 S2 Lungs: Bilateral crackles present Abdomen: soft, nontender, nondistended Assessment & Plan 1) Ventricular tachycardia: continue telemetry monitoring 2) Hypoxemia: Plan for exertional O2 saturation testing with 6 minutes of exercise Objective - Vital Signs/Intake and Output Vital Signs (last 24 hours): Temp Pulse Resp BP Pulse Ox 97.4 F L 82 20 131/73 94 L 06/02/18 07:45 06/02/18 12:00 06/02/18 07:45 06/02/18 07:45 06/02/18 07:45 Intake and Output: 06/02/18 06/02/18 06:59 18:59 Intake Total 400 Output Total 800 Balance -400 - Labs Labs: 06/02/18 08:43 06/02/18 08:43 Assessment and Plan (1) CHF (congestive heart failure) Status: Acute (2) AICD (automatic cardioverter/defibrillator) present Status: Acute (3) COPD (chronic obstructive pulmonary disease) Status: Chronic
== END 2018-06-02 12:45 | disposition home or self-care (01) | DRG 291 ==
LOC: C.ER 10:47 → C.5S 14:07 → OBSVTOIN 05-31 15:29
PROVIDERS: ADMIT Internal Medicine; ATTEND Internal Medicine
DX: I13.0 Hypertensive heart and chronic kidney disease with heart failure and stage 1 through stage 4 chronic kidney disease, or unspecified chronic kidney disease (principal); I50.23 Acute on chronic systolic (congestive) heart failure; N17.9 Acute kidney failure, unspecified; J44.1 Chronic obstructive pulmonary disease with (acute) exacerbation; N18.9 Chronic kidney disease, unspecified; Z95.0 Presence of cardiac pacemaker; I77.819 Aortic ectasia, unspecified site; N40.0 Benign prostatic hyperplasia without lower urinary tract symptoms; E11.22 Type 2 diabetes mellitus with diabetic chronic kidney disease; E78.00 Pure hypercholesterolemia, unspecified; F17.210 Nicotine dependence, cigarettes, uncomplicated

== ENCOUNTER 2018-06-07 11:19 | Outpatient (CLI) | payer MEDICARE, OTHER | END 2018-06-07 11:20 | disposition home or self-care (01) | LOC: C.CTH 11:19 ==

== ENCOUNTER 2018-06-19 12:06 | Observation (INO) | payer MEDICARE, OTHER ==
[2018-06-19 12:06] VITALS: BMI 19.0
--- NOTE | 2018-06-19 12:38 | C.PDOC ---
History Of Present Illness 73 years old male with PMHx of CHF, COPD, HTN, HLD, BPH, and alcohol/tobacco use presents to ED for complaints of recurring shortness of breath and dyspnea on exertion that began last night. Patient describes symptoms are worse with light routine exertion, which is now resolved at rest. Denies associated chest pain. Patient was admitted 05/2018 for CHF. Patient also reports follow up with s/p PPM evaluation last week, and "they said it was fine." Denies leg swelling, pain, or syncope. Patient's renal insufficiency resolved. RECUR SOB/SILVERIO SINCE LAST NIGHT. WORSE W LIGHT ROUTINE EXERTION, NOW RESOLVED @ REST. NO ASSOC CP. ADMITTED 05/2018 FOR CHF. PS FU W DR CEDENO AND SP PPM EVAL LAST WEEK, "THEY SAID IT WAS FINE". NO LEG SWELL, PAIN, SYNCOPE. EXAM NEG history of CHF, COPD, HTN, HLD, BPH and alcohol and tobacco use, RENAL INSUFF RESOLVED Time Seen by Provider: 06/19/18 12:35 Chief Complaint (Nursing): Shortness Of Breath History Per: Patient History/Exam Limitations: no limitations Onset/Duration Of Symptoms: Hrs Current Symptoms Are (Timing): Still Present Exacerbating Factor(s): Exertion Current Respiratory Medications: See Home Med List Associated Symptoms: denies: Fever, Chills Recent travel outside of the [place]: No Past Medical History Reviewed: Historical Data, Nursing Documentation, Vital Signs Vital Signs: Last Vital Signs Temp 98.2 F 06/19/18 12:10 Pulse 59 L 06/19/18 12:10 Resp 20 06/19/18 12:24 BP 179/79 H 06/19/18 12:10 Pulse Ox 97 06/19/18 12:10 - Medical History PMH: Back Problems, Benign Prostatic Hyperplasia, Cardia Arrhythmia, CHF, COPD, Depression, Diabetes, Diverticulitis, HTN, Hypercholesterolemia, Kidney Stones, Chronic Kidney Disease Surgical History: Hernia Repair, Pacemaker (2010) - [facility] Procedures BYPASS ILEUM TO TRANSVERSE COLON, OPEN APPROACH (05/08/15) BYPASS SIGMOID COLON TO CUTANEOUS, OPEN APPROACH (05/08/15) EXCISION OF RECTUM, OPEN APPROACH (03/19/16) EXTIRPATION OF MATTER FROM GI TRACT, OPEN APPROACH (03/19/16) INSERTION OF INFUSION DEV INTO R BRACH VEIN, PERC APPROACH (05/08/15) INTRODUCTION OF NUTRITIONAL INTO PERIPH VEIN, PERC APPROACH (05/08/15) IRRIGATION OF PERITONEAL CAVITY USING IRRIGAT, PERC APPROACH (05/08/15) REPAIR ABDOMINAL WALL, OPEN APPROACH (03/19/16) REPAIR ABDOMINAL WALL, STOMA, EXTERNAL APPROACH (02/13/16) RESECTION OF RIGHT LARGE INTESTINE, OPEN APPROACH (05/08/15) TRANSFUSE NONAUT RED BLOOD CELLS IN PERIPH VEIN, PERC (03/19/16) ULTRASONOGRAPHY OF RIGHT UPPER EXTREMITY VEINS, GUIDANCE (05/08/15) VACCINATION NEC (02/04/14) Family History: States: Unknown Family Hx - Social History Hx Tobacco Use: Yes Hx Alcohol Use: No Hx Substance Use: No - Immunization History Hx Tetanus Toxoid Vaccination: No Hx Influenza Vaccination: No Hx Pneumococcal Vaccination: No Review Of Systems Except As Marked, All Systems Reviewed And Found Negative. Constitutional: Negative for: Fever, Chills Cardiovascular: Negative for: Chest Pain Respiratory: Positive for: Shortness of Breath, SOB with Excertion Skin: Negative for: Rash, Other (Leg swelling or pain) Neurological: Negative for: Weakness, Numbness, Other (Syncope ) Physical Exam - Physical Exam Appears: Non-toxic, No Acute Distress Skin: Normal Color, Warm, Dry, No Rash Head: Atraumatic, Normacephalic Eye(s): bilateral: Normal Inspection, PERRL, EOMI Oral Mucosa: Moist Neck: Normal ROM, Supple Chest: Symmetrical, No Tenderness Cardiovascular: Rhythm Regular Respiratory: Normal Breath Sounds, No Rales, No Rhonchi, No Wheezing, Other (NARD) Gastrointestinal/Abdominal: Normal Exam, Bowel Sounds (Active ), Soft, No Tenderness Back: Normal Inspection, No CVA Tenderness Extremity: Normal ROM Extremity: Bilateral: Atraumatic, Normal Color And Temperature, Normal ROM Pulses: Left Radial: Normal, Right Radial: Normal Neurological/Psych: Oriented x3, Normal Speech, Other (No focal deficits ) Gait: Steady ED Course And Treatment - Laboratory Results Result Diagrams: 06/19/18 13:22 06/19/18 13:22 O2 Sat by Pulse Oximetry: 97 (RA) Pulse Ox Interpretation: Normal - Other Rad CXR X-Ray: Viewed By Me, Read By Radiologist Interpretation: Date of service: 06/19/2018. HISTORY: SOB. COMPARISON: Chest radiographs 05/30/2018. FINDINGS: LUNGS: Borderline atelectasis versus consolidation bilateral bases. Remaining lung jiménez clear. PLEURA: No pneumothorax or left pleural effusion. Trace right pleural effusion not excluded. CARDIOVASCULAR: Cardiomegaly appears stable. No definite pulmonary vascular congestion. Calcific atherosclerotic changes are seen related to the thoracic aorta. OSSEOUS STRUCTURES: Marked scoliotic thoracic spinal deformity reiterated. VISUALIZED UPPER ABDOMEN: Normal. OTHER FINDINGS: AICD/pacemaker reiterated, unchanged in appearance. IMPRESSION: Limited atelectasis favored over early consolidation bilateral bases. Trace right pleural effusion not excluded. No pulmonary vascular congestion. Cardiomegaly stable. Pacemaker AICD reiterated. Progress - Re-Evaluation Re-evaluation Note: 06/19/18 13:59 D/W DR MITCHELL WILL ADMIT - Data Reviewed Data Reviewed: Lab, Diagnostic imaging, EKG, Old records Medical Decision Making Medical Decision Making: Plan: * Lasix * EKG * Blood work * CXR Disposition Counseled Patient/Family Regarding: Studies Performed, Diagnosis - Disposition Disposition: HOSPITALIZED Disposition Time: 13:59 Condition: STABLE - POA Present On Arrival: Poor Glycemic Control - Clinical Impression Clinical Impression: CHF exacerbation - PA / [employer]RE [employer] OFFICER / Resident Statement MD/DO has reviewed & agrees with the documentation as recorded. - Scribe Statement The provider has reviewed the documentation as recorded by the Scribcesar Noble All medical record entries made by the Scribe were at my direction and personally dictated by me. I have reviewed the chart and agree that the record accurately reflects my personal performance of the history, physical exam, medical decision making, and the department course for this patient. I have also personally directed, reviewed, and agree with the discharge instructions and d [email or web address]
[2018-06-19 13:28] LABS: BASO % 0.6 % (0.0-2.0); EOS # 0.2 K/uL (0.0-0.7); EOS % 2.6 % (0.0-4.0); HEMOGLOBIN 13.4 g/dL (12.0-18.0); LYMPH # 1.2 K/uL (1.0-4.3); MEAN CELL VOLUME 101.9 fL (80.0-94.0); MEAN CORPUSCULAR HGB CONC 33.4 g/dL (33.0-37.0); MEAN PLATELET VOLUME 8.6 fL (7.2-11.7); MONO # 0.5 K/uL (0.0-0.8); MONO % 7.2 % (0.0-10.0); NEUT # 5.3 K/uL (1.8-7.0); NEUT % 72.6 % (50.0-75.0); RBC 3.96 Mil/uL (4.40-5.90); RED CELL DISTRIBUTION WIDTH 14.5 % (11.5-14.5); WHITE BLOOD COUNT 7.3 K/uL (4.8-10.8)
[2018-06-19 13:46] LABS: ALB/GLOB RATIO 1.4 (1.0-2.1); ALBUMIN 3.7 g/dL (3.5-5.0); ALT/SGPT 30 U/L (21-72); AST/SGOT 23 U/L (17-59); B-TYPE NATRIURETIC PEPTIDE 5660 pg/mL (0-900); BLOOD UREA NITROGEN 28 mg/dL (9-20); CALCIUM 8.8 mg/dl (8.6-10.4); GFR NON-AFRICAN AMERICAN > 60
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
[2018-06-19] MEDS ORDERED: Pneumococcal 23-Valent Vaccine IM ONE (16:45)
[2018-06-19] MEDS ORDERED: Influenza Vaccine 60 mcg/0.5 mL SYR (4YR UP) IM ONE (16:45)
--- NOTE | 2018-06-19 16:49 | RAD ---
Date of service: 06/19/2018 HISTORY: SOB COMPARISON: Chest radiographs 05/30/2018. FINDINGS: LUNGS: Borderline atelectasis versus consolidation bilateral bases. Remaining lung jiménez clear. PLEURA: No pneumothorax or left pleural effusion. Trace right pleural effusion not excluded. CARDIOVASCULAR: Cardiomegaly appears stable. No definite pulmonary vascular congestion. Calcific atherosclerotic changes are seen related to the thoracic aorta. OSSEOUS STRUCTURES: Marked scoliotic thoracic spinal deformity reiterated. VISUALIZED UPPER ABDOMEN: Normal. OTHER FINDINGS: AICD/pacemaker reiterated, unchanged in appearance. IMPRESSION: Limited atelectasis favored over early consolidation bilateral bases. Trace right pleural effusion not excluded. No pulmonary vascular congestion. Cardiomegaly stable. Pacemaker AICD reiterated.
[2018-06-19] MEDS: Enoxaparin 40 mg Syringe SC SCH (18:02)
[2018-06-19] MEDS ORDERED: Albuterol-Ipratrop 20 mcg/actuation (4 g) IH SCH (20:00)
[2018-06-20 07:21] VITALS: RESP 18; TEMP 97.8; O2SAT 97
[2018-06-20 07:47] LABS: BASO % 0.6 % (0.0-2.0); EOS # 0.2 K/uL (0.0-0.7); HEMOGLOBIN 14.5 g/dL (12.0-18.0); LYMPH # 1.6 K/uL (1.0-4.3); LYMPH % 20.1 % (20.0-40.0); MEAN CELL VOLUME 100.6 fL (80.0-94.0); MEAN CORPUSCULAR HEMOGLOBIN 34.5 pg (27.0-31.0); MEAN CORPUSCULAR HGB CONC 34.3 g/dL (33.0-37.0); MEAN PLATELET VOLUME 8.6 fL (7.2-11.7); MONO # 0.7 K/uL (0.0-0.8); MONO % 8.9 % (0.0-10.0); NEUT # 5.3 K/uL (1.8-7.0); NEUT % 67.4 % (50.0-75.0); RBC 4.19 Mil/uL (4.40-5.90); RED CELL DISTRIBUTION WIDTH 14.2 % (11.5-14.5); WHITE BLOOD COUNT 7.8 K/uL (4.8-10.8)
[2018-06-20 07:53] LABS: INR 1.1; PROTHROMBIN TIME 11.9 SECONDS (9.7-12.2)
[2018-06-20] MEDS ORDERED: Fluticasone-Vilanterol 100/25mcg Diskus INH SCH (08:00)
[2018-06-20 08:17] LABS: ALB/GLOB RATIO 1.3 (1.0-2.1); ALBUMIN 3.9 g/dL (3.5-5.0); CALCIUM 9.1 mg/dl (8.6-10.4)
[2018-06-20] MEDS: Enoxaparin 40 mg Syringe SC SCH (09:13)
[2018-06-20 12:07] VITALS: PULSE 80
--- NOTE | 2018-06-20 12:47 | CP.PCM.DIS ---
Provider - Provider Date of Admission: 06/19/18 14:00 Attending physician: Bandar Gold Jr, MD Time Spent in preparation of Discharge (in minutes): 70 Hospital Course - Lab Results Lab Results: Most Recent Lab Values WBC 7.8 K/uL (4.8-10.8) 06/20/18 07:37 RBC 4.19 Mil/uL (4.40-5.90) L 06/20/18 07:37 Hgb 14.5 g/dL (12.0-18.0) 06/20/18 07:37 Hct 42.1 % (35.0-51.0) 06/20/18 07:37 MCV 100.6 fL (80.0-94.0) H 06/20/18 07:37 MCH 34.5 pg (27.0-31.0) H 06/20/18 07:37 MCHC 34.3 g/dL (33.0-37.0) 06/20/18 07:37 RDW 14.2 % (11.5-14.5) 06/20/18 07:37 Plt Count 215 K/uL (130-400) 06/20/18 07:37 MPV 8.6 fL (7.2-11.7) 06/20/18 07:37 Neut % (Auto) 67.4 % (50.0-75.0) 06/20/18 07:37 Lymph % (Auto) 20.1 % (20.0-40.0) 06/20/18 07:37 [place] % (Auto) 8.9 % (0.0-10.0) 06/20/18 07:37 Eos % (Auto) 3.0 % (0.0-4.0) 06/20/18 07:37 Baso % (Auto) 0.6 % (0.0-2.0) 06/20/18 07:37 Neut # (Auto) 5.3 K/uL (1.8-7.0) 06/20/18 07:37 Lymph # (Auto) 1.6 K/uL (1.0-4.3) 06/20/18 07:37 [place] # (Auto) 0.7 K/uL (0.0-0.8) 06/20/18 07:37 Eos # (Auto) 0.2 K/uL (0.0-0.7) 06/20/18 07:37 Baso # (Auto) 0.0 K/uL (0.0-0.2) 06/20/18 07:37 PT 11.9 SECONDS (9.7-12.2) 06/20/18 07:37 INR 1.1 06/20/18 07:37 APTT 41 SECONDS (21-34) H 06/20/18 07:37 D-Dimer, Quantitative 355 ng/mlDDU (0-243) H 06/19/18 13:22 Sodium 139 mmol/L (132-148) 06/20/18 07:37 Potassium 3.6 mmol/L (3.6-5.2) 06/20/18 07:37 Chloride 101 mmol/L (98-107) 06/20/18 07:37 Carbon Dioxide 32 mmol/L (22-30) H 06/20/18 07:37 Anion Gap 10 (10-20) 06/20/18 07:37 BUN 39 mg/dL (9-20) H 06/20/18 07:37 Creatinine 1.5 mg/dL (0.8-1.5) 06/20/18 07:37 Est GFR ( Amer) 55 06/20/18 07:37 Est GFR (Non-Af Amer) 46 06/20/18 07:37 Random Glucose 89 mg/dL (75-110) D 06/20/18 07:37 Calcium 9.1 mg/dl (8.6-10.4) 06/20/18 07:37 Total Bilirubin 1.0 mg/dL (0.2-1.3) 06/20/18 07:37 AST 29 U/L (17-59) 06/20/18 07:37 ALT 27 U/L (21-72) 06/20/18 07:37 Alkaline Phosphatase 95 U/L (38-126) 06/20/18 07:37 Troponin I 0.0220 ng/mL (0.00-0.120) 06/19/18 13:22 NT-Pro-B Natriuret Pep 5660 pg/mL (0-900) H 06/19/18 13:22 Total Protein 6.9 g/dL (6.3-8.3) 06/20/18 07:37 Albumin 3.9 g/dL (3.5-5.0) 06/20/18 07:37 Globulin 3.0 gm/dL (2.2-3.9) 06/20/18 07:37 Albumin/Globulin Ratio 1.3 (1.0-2.1) 06/20/18 07:37 - Hospital Course Hospital Course: Upon Admission: Patient is a 73 year old male with pmhx of CHF (pacemaker), COPD, HTN, HTN, HLD, diverticulosis who presents to the ED for evaluation and treatment of SOB. Pt reports he first noticed SOB yesterday during the day, and has since worsened, t hus prompting his visit. Pt reports SOB worsened with exertion and lying flat. He reports similar episodes in the past for which he was hospitalized and treated for a CHF exacerbation. Pt reports compliance with all medications as prescribed by PMD, Dr. Gold, housekeeper supervisor, Dr. Cai, and auditor internal, Dr. Rowland. Denies chest pain, nausea, diarrhea, constipation. Chest xray showed limited atelectasis and trace R sided pleural effusion. Patient was admitted for CHF exacerbation. Hospital Course: Patient was started on duoneb treatments as well as home breo-ellipta combivent. Patient was diuresed with lasix 40mg IV BID. Patient reported improvement in breathing with supplemental oxygen. Overnight, patient heart rate decreased from 45-55 bpm. The following day, patient was able to walk without supplemental oxygen without overt difficulty. O2 sat post 6 min walk was 94% on room air. Patient was deemed stable for discharge. Upon Discharge: Patient was instructed to follow up with Dr. Gold upon discharge and to take medications as prescribed. Due to bradycardia, Lopressor was decreased to 12.5mg PO BID. Patient understood instructions and agreed. Discharge Exam - Head Exam Head Exam: ATRAUMATIC, NORMAL INSPECTION, NORMOCEPHALIC - Eye Exam Eye Exam: EOMI, Normal appearance - ENT Exam ENT Exam: Mucous Membranes Moist - Respiratory Exam Respiratory Exam: Clear to PA & Lateral, NORMAL BREATHING PATTERN. absent: Rales, Rhonchi, Wheezes - Cardiovascular Exam Cardiovascular Exam: Bradycardia, +S1, +S2. absent: Gallop, Rubs, Systolic Murmur - GI/Abdominal Exam GI & Abdominal Exam: Normal Bowel Sounds, Soft. absent: Distended, Tenderness - Extremities Exam Extremities exam: normal inspection - Neurological Exam Neurological exam: Alert, Normal Gait, Oriented x3 - Psychiatric Exam Psychiatric exam: Normal Affect, Normal Mood - Skin Skin Exam: Dry Discharge Plan - Discharge Medications Prescriptions: Albuterol/Ipratropium [Combivent Respimat] 2 puff IH BID #1 inhaler Aspirin [Ecotrin] 81 mg PO DAILY #30 tabec Atorvastatin Calcium 20 mg PO HS #30 tablet Finasteride [Proscar] 5 mg PO DAILY #30 tab Fluticasone/Vilanterol 100/25 [Breo Ellipta 100-25 MCG INH] 1 puff INH DAILY 30 Days #1 inhaler Losartan Potassium 25 mg PO DAILY #30 tablet Metoprolol Tartrate [Lopressor] 12.5 mg PO BID #60 tab Metoprolol Tartrate [Lopressor] 50 mg PO BID #60 tab Tamsulosin [Flomax] 0.4 mg PO DAILY #30 cap - Follow Up Plan Condition: STABLE Disposition: HOME/ ROUTINE Instructions: Heart Healthy Diet, Heart Failure, Adult (DC), Atorvastatin, Fluticasone and Vilanterol, Finasteride, Losartan, Metoprolol, Tamsulosin, Heart Failure (DC), Heart Failure (GEN), Pacemaker (DC), Pacemaker (GEN), Pulmonary Edema (DC), Pulmonary Edema (GEN), Ascites (DC), Ascites (GEN) Additional Instructions: Please follow up with Dr. Gold within 3 weeks of discharge. Please take your medications as prescribed. Avoid foods with salt. Avoid drinking more than 2 liters of water per day. If symptoms return, please visit the Emergency Department. Take care and be well. Referrals: Bandar Gold Jr., MD [Medical Doctor] -
[2018-06-20 13:20] VITALS: BP 113/64
--- NOTE | 2018-06-20 14:25 | CARD ---
APPROVED REPORT Date of service: 06/19/2018 EKG Measurement Heart [id number] HI 160P1 [id number] <Conclusion> Atrial-paced rhythm with frequent premature ventricular complexes Left axis deviation Right bundle branch block Left ventricular hypertrophy with repolarization abnormality Anteroseptal infarct, age undetermined Abnormal ECG
--- NOTE | 2018-06-20 17:04 | PCM.HF ---
Heart Failure Core Measure - Heart Failure Ejection Fraction: Less Than 40 % MILO Inhibitor Prescribed: No Contraindication/Reason for not providing: on arb Beta-Patsy Prescribed: Metoprolol Succinate Angiotensin II Receptor Patsy Prescribed: Yes AnticoagulationTherapy for Atrial Fibrillation/Atrialflutter: No Contraindication/Reason for not providing: no hx of a fib Aldosterone Antagonist Prescribed: No Contraindication/Reason for not providing: risk for hyperkalemia Hydralazine Nitrate Prescribed: No Contraindication/Reason for not providing: bp low Implantable Cardioverter Defibrillator Therapy: No Contraindication/Reason for not providing: pt AICD Cardiac Resynchronization Therapy Prescribed: No Contraindication/Reason for not providing: pt has AICD - Follow up Will be discharged to: Home Follow Up Date (must be within 7 days from discharge): 06/24/18
== END 2018-06-20 15:09 | disposition home or self-care (01) ==
LOC: C.ER 12:06 → C.9E 14:00 → C.6T 14:09
PROVIDERS: ADMIT Internal Medicine; ATTEND Internal Medicine
DX: I13.0 Hypertensive heart and chronic kidney disease with heart failure and stage 1 through stage 4 chronic kidney disease, or unspecified chronic kidney disease (principal); E11.22 Type 2 diabetes mellitus with diabetic chronic kidney disease; N18.9 Chronic kidney disease, unspecified; I50.9 Heart failure, unspecified; I49.9 Cardiac arrhythmia, unspecified; Z95.0 Presence of cardiac pacemaker; J44.9 Chronic obstructive pulmonary disease, unspecified; E78.2 Mixed hyperlipidemia; N40.0 Benign prostatic hyperplasia without lower urinary tract symptoms; Z87.891 Personal history of nicotine dependence; Z87.19 Personal history of other diseases of the digestive system; Z98.890 Other specified postprocedural states; Z79.82 Long term (current) use of aspirin; Z79.899 Other long term (current) drug therapy
CPT/HCPCS: 36415; 71045; 80053; 83880; 84484; 85025; 85378; 85610; 85730; 93005; 96374; 99285; G0378; J1650; J1940

== ENCOUNTER 2018-09-03 11:03 | Observation (INO) | payer MEDICARE, OTHER ==
[2018-09-03 11:03] VITALS: BMI 19.0
--- NOTE | 2018-09-03 11:38 | C.PDOC ---
History Of Present Illness 73 y/o male with hx aicd, chf, comes to ed saying he feels sob since this morning. denies cp, cough, fever, chills. pt also reports feeling a bit lightheaded. pt missed daytime medications yesterday. denies leg swelling or pain. did not try nebulizer. Time Seen by Provider: 09/03/18 11:21 Chief Complaint (Nursing): Shortness Of Breath History Per: Patient History/Exam Limitations: no limitations Onset/Duration Of Symptoms: Hrs (6) Current Symptoms Are (Timing): Still Present Initiating Event: Other (missed daytime meds yesterday) Associated Symptoms: Light-headedness. denies: Chest Pain, Leg/Calf Pain Reports Recently: Hospitalized (may 2018) Past Medical History Vital Signs: Last Vital Signs Temp 97.4 F L 09/03/18 11:08 Pulse 54 L 09/03/18 11:08 Resp 22 09/03/18 11:08 BP 111/71 09/03/18 11:08 Pulse Ox 97 09/03/18 11:08 - Medical History PMH: Back Problems, Benign Prostatic Hyperplasia, Cardia Arrhythmia, CHF, COPD, Depression, Diabetes, Diverticulitis, HTN, Hypercholesterolemia, Kidney Stones, Chronic Kidney Disease Surgical History: Hernia Repair, Pacemaker (2010) - [facility] Procedures BYPASS ILEUM TO TRANSVERSE COLON, OPEN APPROACH (05/08/15) BYPASS SIGMOID COLON TO CUTANEOUS, OPEN APPROACH (05/08/15) EXCISION OF RECTUM, OPEN APPROACH (03/19/16) EXTIRPATION OF MATTER FROM GI TRACT, OPEN APPROACH (03/19/16) INSERTION OF INFUSION DEV INTO R BRACH VEIN, PERC APPROACH (05/08/15) INTRODUCTION OF NUTRITIONAL INTO PERIPH VEIN, PERC APPROACH (05/08/15) IRRIGATION OF PERITONEAL CAVITY USING IRRIGAT, PERC APPROACH (05/08/15) REPAIR ABDOMINAL WALL, OPEN APPROACH (03/19/16) REPAIR ABDOMINAL WALL, STOMA, EXTERNAL APPROACH (02/13/16) RESECTION OF RIGHT LARGE INTESTINE, OPEN APPROACH (05/08/15) TRANSFUSE NONAUT RED BLOOD CELLS IN PERIPH VEIN, PERC (03/19/16) ULTRASONOGRAPHY OF RIGHT UPPER EXTREMITY VEINS, GUIDANCE (05/08/15) VACCINATION NEC (02/04/14) Family History: States: Unknown Family Hx - Social History Hx Tobacco Use: Yes Hx Alcohol Use: No Hx Substance Use: No - Immunization History Hx Tetanus Toxoid Vaccination: No Hx Influenza Vaccination: No Hx Pneumococcal Vaccination: No Review Of Systems Constitutional: Negative for: Fever, Chills Cardiovascular: Positive for: Light Headedness. Negative for: Chest Pain, Palpitations Respiratory: Positive for: Shortness of Breath, SOB with Excertion. Negative for: Cough, Wheezing Gastrointestinal: Negative for: Vomiting, Abdominal Pain, Diarrhea Musculoskeletal: Negative for: Back Pain Skin: Negative for: Rash Neurological: Negative for: Weakness, Numbness Physical Exam - Physical Exam Appears: Non-toxic, No Acute Distress Skin: Warm, Dry Head: Atraumatic, Normacephalic Neck: Supple Cardiovascular: Rhythm Regular, No Murmur, Other (device left chest wall) Respiratory: Other (diminished bs in all jiménez. no rales or rhonchi, no wheezing. ) Gastrointestinal/Abdominal: Bowel Sounds, Soft, No Tenderness, No Distention, No Guarding, No Rebound Extremity: No Pedal Edema, No Calf Tenderness, No Swelling Neurological/Psych: Oriented x3, Normal Speech, Normal Cognition ED Course And Treatment - Laboratory Results Result Diagrams: 09/03/18 11:48 09/03/18 11:48 ECG: Interpreted By Me, Viewed By Me (and Dr Mackenzie) ECG Interpretation: No Changes From Prior, Abnormal Interpretation Of ECG: paced rhythm, pvc, with rbbb, lvh, similar to ekg from may 2018 O2 Sat by Pulse Oximetry: 97 Medical Decision Making Medical Decision Making: hx cad. copd, aicd, here for sob. cxr, ekg. labs. neb. re=eval Called Dr. Gold office twice, office reports no answer from cell phone or pager. Called Dr. Gold cell phone twice, no answer. Called medical residents and was told they were not able to reach him as well. 2:30 Dr. Gold called back; case was discuss and agrees with plan. Pt will be sent to OBS 2:43 discuss case with medical investigator, agrees with plan Disposition - Disposition
[2018-09-03] MEDS ORDERED: Albuterol-Ipratrop 3 mg / 0.5 (3 ml) UD INH STA ×2 (11:42→14:13)
[2018-09-03 11:56] LABS: BASO % 0.6 % (0.0-2.0); EOS # 0.1 K/uL (0.0-0.7); EOS % 2.2 % (0.0-4.0); HEMOGLOBIN 13.6 g/dL (12.0-18.0); LYMPH # 1.6 K/uL (1.0-4.3); LYMPH % 25.8 % (20.0-40.0); MEAN CELL VOLUME 100.7 fL (80.0-94.0); MEAN CORPUSCULAR HEMOGLOBIN 34.3 pg (27.0-31.0); MEAN CORPUSCULAR HGB CONC 34.1 g/dL (33.0-37.0); MEAN PLATELET VOLUME 8.4 fL (7.2-11.7); MONO # 0.5 K/uL (0.0-0.8); MONO % 8.6 % (0.0-10.0); NEUT % 62.8 % (50.0-75.0); NRBC % 0.1 % (0.0-2.0); RBC 3.97 Mil/uL (4.40-5.90); RED CELL DISTRIBUTION WIDTH 13.7 % (11.5-14.5); WHITE BLOOD COUNT 6.3 K/uL (4.8-10.8)
[2018-09-03] MEDS ORDERED: Albuterol-Ipratrop 3 mg / 0.5 (3 ml) UD ONE ×2 (12:09→14:58)
[2018-09-03 12:12] LABS: ALB/GLOB RATIO 1.3 (1.0-2.1); ALBUMIN 3.8 g/dL (3.5-5.0); ALT/SGPT 25 U/L (21-72); AST/SGOT 22 U/L (17-59); BLOOD UREA NITROGEN 27 mg/dL (9-20); CALCIUM 9.1 mg/dl (8.6-10.4); GFR NON-AFRICAN AMERICAN 59
[2018-09-03 12:23] LABS: B-TYPE NATRIURETIC PEPTIDE 2910 pg/mL (0-900)
[2018-09-03 13:26] LABS: SQUAMOUS EPITHIAL < 1 /hpf (0-5); URINE BILIRUBIN NEGATIVE (NEGATIVE); URINE BLOOD NEGATIVE (NEGATIVE); URINE CLARITY Clear (Clear); URINE COLOR Yellow (YELLOW); URINE GLUCOSE (UA) NORMAL (Normal); URINE HYALINE CAST 0-2 /lpf (0-2); URINE LEUKOCYTE ESTERASE NEG Leu/uL (Negative); URINE PROTEIN NEGATIVE (NEGATIVE); URINE UROBILINOGEN NORMAL mg/dL (0.2-1.0)
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
[2018-09-03 15:57] VITALS: RESP 20
[2018-09-03] MEDS: MethylPREDNISolone 40 mg Vial IVP SCH (16:26)
--- NOTE | 2018-09-03 16:26 | RAD ---
Date of service: 09/03/2018 HISTORY: SOB COMPARISON: 06/19/2018 TECHNIQUE: Chest PA and lateral views FINDINGS: LUNGS: No active pulmonary disease. PLEURA: No significant pleural effusion identified. No pneumothorax apparent. CARDIOVASCULAR: There is atherosclerotic calcification of the thoracic aorta Normal heart size. AICD. No pulmonary vascular congestion. OSSEOUS STRUCTURES: Thoracic dextroscoliosis. VISUALIZED UPPER ABDOMEN: Normal. OTHER FINDINGS: None. IMPRESSION: No active disease.
[2018-09-03 16:42] LABS: CK-MB 2.07 ng/mL (0.0-3.38); TROPONIN I 0.016 ng/mL (0.00-0.120)
[2018-09-03] MEDS: Albuterol-Ipratrop 3 mg / 0.5 (3 ml) UD INH SCH (19:58)
[2018-09-04 01:04] LABS: CK-MB 1.54 ng/mL (0.0-3.38); TROPONIN I 0.012 ng/mL (0.00-0.120)
[2018-09-04] MEDS: Albuterol-Ipratrop 3 mg / 0.5 (3 ml) UD INH SCH ×4 (02:40→16:18)
[2018-09-04 08:05] LABS: BASO % 0.1 % (0.0-2.0); HEMOGLOBIN 13.9 g/dL (12.0-18.0); LYMPH # 0.7 K/uL (1.0-4.3); LYMPH % 8.7 % (20.0-40.0); MEAN CELL VOLUME 101.6 fL (80.0-94.0); MEAN CORPUSCULAR HEMOGLOBIN 34.2 pg (27.0-31.0); MEAN CORPUSCULAR HGB CONC 33.6 g/dL (33.0-37.0); MONO # 0.1 K/uL (0.0-0.8); MONO % 1.6 % (0.0-10.0); NEUT # 6.9 K/uL (1.8-7.0); NEUT % 89.6 % (50.0-75.0); NRBC % 0.1 % (0.0-2.0); PLATELET COUNT 188 K/uL (130-400); RBC 4.08 Mil/uL (4.40-5.90); RED CELL DISTRIBUTION WIDTH 13.9 % (11.5-14.5); WHITE BLOOD COUNT 7.7 K/uL (4.8-10.8)
[2018-09-04 08:32] LABS: ALB/GLOB RATIO 1.2 (1.0-2.1); ALBUMIN 3.8 g/dL (3.5-5.0); ALT/SGPT 17 U/L (21-72); AST/SGOT 23 U/L (17-59); BLOOD UREA NITROGEN 40 mg/dL (9-20); CALCIUM 9.1 mg/dl (8.6-10.4); GFR NON-AFRICAN AMERICAN 54; HDL CHOLESTEROL 56 mg/dL (30-70)
[2018-09-04 08:38] LABS: LDL CHOLESTEROL 74 mg/dL (0-129)
[2018-09-04] MEDS ORDERED: Enoxaparin 40 mg Syringe SC SCH (10:00)
[2018-09-04] MEDS: MethylPREDNISolone 40 mg Vial IVP SCH (10:32)
[2018-09-04 10:41] LABS: BANDS 2 % (0-2); LYMPHOCYTE 11 % (20-40); MONOCYTE 1 % (0-10); NEUTROPHIL 86 % (50-75); TOTAL CELLS COUNTED 100
[2018-09-04 10:42] LABS: PLATELET ESTIMATE NORMAL (NORMAL)
--- NOTE | 2018-09-04 15:09 | CP.PCM.DIS ---
Provider - Provider Date of Admission: 09/03/18 14:33 Attending physician: Bandar Gold Jr, MD Time Spent in preparation of Discharge (in minutes): 45 Diagnosis - Discharge Diagnosis (1) CHF exacerbation Status: Acute (2) COPD (chronic obstructive pulmonary disease) Status: Chronic (3) Hypertension Status: Chronic Hospital Course - Lab Results Lab Results: Most Recent Lab Values WBC 7.7 K/uL (4.8-10.8) 09/04/18 07:00 RBC 4.08 Mil/uL (4.40-5.90) L 09/04/18 07:00 Hgb 13.9 g/dL (12.0-18.0) 09/04/18 07:00 Hct 41.4 % (35.0-51.0) 09/04/18 07:00 MCV 101.6 fL (80.0-94.0) H 09/04/18 07:00 MCH 34.2 pg (27.0-31.0) H 09/04/18 07:00 MCHC 33.6 g/dL (33.0-37.0) 09/04/18 07:00 RDW 13.9 % (11.5-14.5) 09/04/18 07:00 Plt Count 188 K/uL (130-400) 09/04/18 07:00 MPV 9.0 fL (7.2-11.7) 09/04/18 07:00 Neut % (Auto) 89.6 % (50.0-75.0) H 09/04/18 07:00 Lymph % (Auto) 8.7 % (20.0-40.0) L 09/04/18 07:00 [place] % (Auto) 1.6 % (0.0-10.0) 09/04/18 07:00 Eos % (Auto) 0.0 % (0.0-4.0) 09/04/18 07:00 Baso % (Auto) 0.1 % (0.0-2.0) 09/04/18 07:00 Neut # (Auto) 6.9 K/uL (1.8-7.0) 09/04/18 07:00 Lymph # (Auto) 0.7 K/uL (1.0-4.3) L 09/04/18 07:00 [place] # (Auto) 0.1 K/uL (0.0-0.8) 09/04/18 07:00 Eos # (Auto) 0.0 K/uL (0.0-0.7) 09/04/18 07:00 Baso # (Auto) 0.0 K/uL (0.0-0.2) 09/04/18 07:00 Neutrophils % (Manual) 86 % (50-75) H 09/04/18 07:00 Band Neutrophils % 2 % (0-2) 09/04/18 07:00 Lymphocytes % (Manual) 11 % (20-40) L 09/04/18 07:00 Monocytes % (Manual) 1 % (0-10) 09/04/18 07:00 Platelet Estimate Normal (NORMAL) 09/04/18 07:00 RBC Morphology Normal 09/04/18 07:00 Sodium 139 mmol/L (132-148) 09/04/18 07:00 Potassium 4.1 mmol/L (3.6-5.2) 09/04/18 07:00 Chloride 105 mmol/L (98-107) 09/04/18 07:00 Carbon Dioxide 23 mmol/L (22-30) 09/04/18 07:00 Anion Gap 15 (10-20) 09/04/18 07:00 BUN 40 mg/dL (9-20) H 09/04/18 07:00 Creatinine 1.3 mg/dL (0.8-1.5) 09/04/18 07:00 Est GFR ( Amer) > 60 09/04/18 07:00 Est GFR (Non-Af Amer) 54 09/04/18 07:00 POC Glucose (mg/dL) 158 mg/dL (65-110) H 09/04/18 11:13 Random Glucose 125 mg/dL (75-110) H D 09/04/18 07:00 Hemoglobin A1c 5.7 % (4.2-6.5) 09/04/18 07:00 Calcium 9.1 mg/dl (8.6-10.4) 09/04/18 07:00 Total Bilirubin 0.6 mg/dL (0.2-1.3) 09/04/18 07:00 AST 23 U/L (17-59) 09/04/18 07:00 ALT 17 U/L (21-72) L D 09/04/18 07:00 Alkaline Phosphatase 63 U/L (38-126) 09/04/18 07:00 Total Creatine Kinase 36 U/L (55-170) L 09/03/18 23:50 CK-MB (Mass) 1.54 ng/mL (0.0-3.38) 09/03/18 23:50 Troponin I 0.0120 ng/mL (0.00-0.120) 09/03/18 23:50 NT-Pro-B Natriuret Pep 2910 pg/mL (0-900) H 09/03/18 11:48 Total Protein 6.9 g/dL (6.3-8.3) 09/04/18 07:00 Albumin 3.8 g/dL (3.5-5.0) 09/04/18 07:00 Globulin 3.2 gm/dL (2.2-3.9) 09/04/18 07:00 Albumin/Globulin Ratio 1.2 (1.0-2.1) 09/04/18 07:00 Triglycerides 76 mg/dL (0-149) 09/04/18 07:00 Cholesterol 122 mg/dL (0-199) 09/04/18 07:00 LDL Cholesterol Direct 74 mg/dL (0-129) 09/04/18 07:00 HDL Cholesterol 56 mg/dL (30-70) 09/04/18 07:00 TSH 3rd Generation 0.29 mIU/L (0.46-4.68) L 09/04/18 07:00 Urine Color Yellow (YELLOW) 09/03/18 12:56 Urine Clarity Clear (Clear) 09/03/18 12:56 Urine pH 5.0 (5.0-8.0) 09/03/18 12:56 Ur Specific [place] 1.019 (1.003-1.030) 09/03/18 12:56 Urine Protein Negative mg/dL (NEGATIVE) 09/03/18 12:56 Urine Glucose (UA) Normal mg/dL (Normal) 09/03/18 12:56 Urine Ketones Negative mg/dL (NEGATIVE) 09/03/18 12:56 Urine Blood Negative (NEGATIVE) 09/03/18 12:56 Urine Nitrate Negative (NEGATIVE) 09/03/18 12:56 Urine Bilirubin Negative (NEGATIVE) 09/03/18 12:56 Urine Urobilinogen Normal mg/dL (0.2-1.0) 09/03/18 12:56 Ur Leukocyte Esterase Neg [place]/uL (Negative) 09/03/18 12:56 Urine WBC (Auto) 1 /hpf (0-5) 09/03/18 12:56 Urine RBC (Auto) 1 /hpf (0-3) 09/03/18 12:56 Ur Squamous Epith Cells < 1 /hpf (0-5) 09/03/18 12:56 Hyaline Casts 0-2 /lpf (0-2) 09/03/18 12:56 - Hospital Course Hospital Course: H&P 73 year old male with past medical history of COPD, CHF with EF 25-30%, pulmonary HTN, HTN, HLD, BPH presented to hospital for acute shortness of breath. Patient states that after eating breakfast this morning, he developed shortness of breath. He was unable to lay down in bed due to the dyspnea. Patient had similar symptoms in the past with worsening CHF which is what brought him to ED. Patient states he missed his home medication dose yesterday. Currently, still c/o SOB. Denies CP, abd pain, N/V/D/C, F/C, coughing. Hospital course: On admission, CXR showed mild venous congestion, cardiomegaly stable and pacemaker in place. ProBNP was 2910. Patient received IV lasixs, IV steroids and continued home BP medications. Shortness of breath improved considerably and patient was deemed stable for discharge. Discharge instructions: Patient stable for discharge home per Dr. Gold Patient is to follow up with Dr. Gold in 1 week after discharge. Patient is to continue taking all his home medications as prescribed. Please return to ED if symptoms return. - Date & Time of H&P Date of H&P: 09/04/18 Time of H&P: 15:07 Discharge Exam - Head Exam Head Exam: ATRAUMATIC, NORMOCEPHALIC - ENT Exam ENT Exam: Mucous Membranes Moist - Respiratory Exam Respiratory Exam: Clear to PA & Lateral, NORMAL BREATHING PATTERN. absent: Rales, Rhonchi, Wheezes - Cardiovascular Exam Cardiovascular Exam: REGULAR RHYTHM, +S1, +S2. absent: Gallop, Rubs, Systolic Murmur - GI/Abdominal Exam GI & Abdominal Exam: Normal Bowel Sounds, Soft, Unremarkable. absent: Distended, Firm, Guarding, Hernia - Extremities Exam Additional comments: no edema or tenderness - Neurological Exam Neurological exam: Alert, Oriented x3 - Psychiatric Exam Psychiatric exam: Normal Affect, Normal Mood - Skin Skin Exam: Dry, Intact, Normal Color, Warm Discharge Plan - Follow Up Plan Condition: GOOD Disposition: HOME/ ROUTINE Additional Instructions: Patient stable for discharge home per Dr. Gold Patient is to follow up with Dr. Gold in 1 week after discharge. Patient is to continue taking all his home medications as prescribed. Please return to ED if symptoms return.
[2018-09-04 15:45] VITALS: BP 113/56; PULSE 51; TEMP 98.5; O2SAT 96
--- NOTE | 2018-09-06 12:47 | CARD ---
APPROVED REPORT Date of service: 09/03/2018 EKG Measurement Heart [id number] <Conclusion> Atrial-paced rhythm with occasional ventricular-paced complexes and with frequent and consecutive premature ventricular compl Left axis deviation Right bundle branch block Left ventricular hypertrophy with repolarization abnormality Anteroseptal infarct, age undetermined can not be excluded Abnormal ECG
== END 2018-09-04 17:56 | disposition home or self-care (01) ==
LOC: C.ER 11:03 → C.9E 14:33 → C.5S 15:42
PROVIDERS: ADMIT Internal Medicine; ATTEND Internal Medicine
DX: I13.0 Hypertensive heart and chronic kidney disease with heart failure and stage 1 through stage 4 chronic kidney disease, or unspecified chronic kidney disease (principal); I50.9 Heart failure, unspecified; E11.22 Type 2 diabetes mellitus with diabetic chronic kidney disease; I27.20 Pulmonary hypertension, unspecified; J44.9 Chronic obstructive pulmonary disease, unspecified; N18.9 Chronic kidney disease, unspecified; E78.5 Hyperlipidemia, unspecified; E78.00 Pure hypercholesterolemia, unspecified; N40.0 Benign prostatic hyperplasia without lower urinary tract symptoms; F41.9 Anxiety disorder, unspecified; Z87.442 Personal history of urinary calculi; Z87.891 Personal history of nicotine dependence; Z95.0 Presence of cardiac pacemaker
CPT/HCPCS: 36415; 71046; 80053; 80061; 81001; 82948; 83036; 83880; 84443; 84484; 85025; 94640; 96372; 96374; 96376; 99285; G0378; J1650; J1940; J2920

== ENCOUNTER 2018-09-21 11:49 | Observation (INO) | payer MEDICARE, OTHER ==
[2018-09-21 11:49] VITALS: BMI 19.0
--- NOTE | 2018-09-21 13:38 | C.PDOC ---
History Of Present Illness 73 y/o male,w/PMhx of COPD,CHF, and HTN, presents to the ER complaining shortness of breath which has been present for the past 2 days. Patient states that he was admitted for COPD and CHF exacerbation in [facility] from 09/03/18-09/04/18. Patient has ejection fraction 25%. He notes that he is still smoking half pack of cigarettes per day.Denies having CP, fever,chills, and cough. Time Seen by Provider: 09/21/18 12:46 Chief Complaint (Nursing): Shortness Of Breath History Per: Patient History/Exam Limitations: no limitations Onset/Duration Of Symptoms: Days Current Symptoms Are (Timing): Still Present Severity: Moderate Past Medical History Reviewed: Historical Data, Nursing Documentation, Vital Signs Vital Signs: Last Vital Signs Temp 98.1 F 09/21/18 11:52 Pulse 51 L 09/21/18 11:52 Resp 19 09/21/18 12:09 BP 173/75 H 09/21/18 11:52 Pulse Ox 98 09/21/18 12:09 Primary Care Provider: Bandar Gold Jr. - Medical History PMH: Back Problems, Benign Prostatic Hyperplasia, Cardia Arrhythmia, CHF, COPD, Depression, Diabetes, Diverticulitis, HTN, Hypercholesterolemia, Kidney Stones, Chronic Kidney Disease Surgical History: Hernia Repair, Pacemaker (2010) - [facility] Procedures BYPASS ILEUM TO TRANSVERSE COLON, OPEN APPROACH (05/08/15) BYPASS SIGMOID COLON TO CUTANEOUS, OPEN APPROACH (05/08/15) EXCISION OF RECTUM, OPEN APPROACH (03/19/16) EXTIRPATION OF MATTER FROM GI TRACT, OPEN APPROACH (03/19/16) INSERTION OF INFUSION DEV INTO R BRACH VEIN, PERC APPROACH (05/08/15) INTRODUCTION OF NUTRITIONAL INTO PERIPH VEIN, PERC APPROACH (05/08/15) IRRIGATION OF PERITONEAL CAVITY USING IRRIGAT, PERC APPROACH (05/08/15) REPAIR ABDOMINAL WALL, OPEN APPROACH (03/19/16) REPAIR ABDOMINAL WALL, STOMA, EXTERNAL APPROACH (02/13/16) RESECTION OF RIGHT LARGE INTESTINE, OPEN APPROACH (05/08/15) TRANSFUSE NONAUT RED BLOOD CELLS IN PERIPH VEIN, PERC (03/19/16) ULTRASONOGRAPHY OF RIGHT UPPER EXTREMITY VEINS, GUIDANCE (05/08/15) VACCINATION NEC (09/28/14) Family History: States: No Known Family Hx - Social History Hx Tobacco Use: Yes Hx Alcohol Use: No Hx Substance Use: No - Immunization History Hx Tetanus Toxoid Vaccination: No Hx Influenza Vaccination: No Hx Pneumococcal Vaccination: No Review Of Systems Except As Marked, All Systems Reviewed And Found Negative. Constitutional: Negative for: Fever, Chills Cardiovascular: Negative for: Chest Pain Respiratory: Positive for: Shortness of Breath Gastrointestinal: Negative for: Nausea, Vomiting, Abdominal Pain Physical Exam - Physical Exam Appears: Other (elderly,thin male) Skin: Normal Color, Warm, Dry Head: Atraumatic, Normacephalic Eye(s): bilateral: Normal Inspection Nose: Normal Oral Mucosa: Moist Neck: Supple, Other (mild JVD) Chest: Symmetrical Cardiovascular: Rhythm Regular Respiratory: Decreased Breath Sounds (distal breath sounds), No Rales, No Rhonchi, No Wheezing Gastrointestinal/Abdominal: Normal Exam, Soft, No Tenderness, No Guarding, No Rebound Neurological/Psych: Oriented x3, Normal Speech ED Course And Treatment - Laboratory Results Result Diagrams: 09/21/18 14:25 09/21/18 14:25 Lab Interpretation: Normal (BNP 3500, trop neg.) O2 Sat by Pulse Oximetry: 98 (RA) Pulse Ox Interpretation: Normal - Radiology CXR: Interpreted by Me CXR Interpretation: Yes: Other (+ mild CHF) Reevaluation Time: 15:15 Reassessment Condition: Improved - Physician Consult Information Outcome Of Conversation: 1515: d/w Dr. Brigitte nayak to tele obs. d/w Med Chary Medical Decision Making Medical Decision Making: copd vs CHF exacerbation Disposition Doctor Will See Patient In The: Hospital Counseled Patient/Family Regarding: Studies Performed, Diagnosis - Disposition Disposition: HOSPITALIZED Disposition Time: 15:15 Condition: GOOD - Clinical Impression Clinical Impression: Shortness of breath - Scribe Statement The provider has reviewed the documentation as recorded by the Khang Butcher Provider Attestation: All medical record entries made by the Khang were at my direction and personally dictated by me. I have reviewed the chart and agree that the record accurately reflects my personal performance of the history, physical exam, medical decision making, and the department course for this patient. I have also personally directed, reviewed, and agree with the discharge instructions and disposition.
[2018-09-21] MEDS ORDERED: Albuterol-Ipratrop 3 mg / 0.5 (3 ml) UD INH STA (14:18)
[2018-09-21] MEDS ORDERED: Albuterol-Ipratrop 3 mg / 0.5 (3 ml) UD ONE (14:32)
[2018-09-21 14:33] LABS: BASO % 0.5 % (0.0-2.0); EOS # 0.2 K/uL (0.0-0.7); EOS % 3.1 % (0.0-4.0); HEMOGLOBIN 13.7 g/dL (12.0-18.0); LYMPH # 2.1 K/uL (1.0-4.3); LYMPH % 29.2 % (20.0-40.0); MEAN CELL VOLUME 102.4 fL (80.0-94.0); MEAN CORPUSCULAR HEMOGLOBIN 33.4 pg (27.0-31.0); MEAN CORPUSCULAR HGB CONC 32.6 g/dL (33.0-37.0); MEAN PLATELET VOLUME 9.3 fL (7.2-11.7); MONO # 0.7 K/uL (0.0-0.8); MONO % 9.3 % (0.0-10.0); NEUT # 4.1 K/uL (1.8-7.0); NEUT % 57.9 % (50.0-75.0); RBC 4.1 Mil/uL (4.40-5.90); RED CELL DISTRIBUTION WIDTH 13.6 % (11.5-14.5); WHITE BLOOD COUNT 7.1 K/uL (4.8-10.8)
[2018-09-21 14:43] LABS: ALB/GLOB RATIO 1.3 (1.0-2.1); ALT/SGPT 28 U/L (21-72); AST/SGOT 37 U/L (17-59); BLOOD UREA NITROGEN 27 mg/dL (9-20); CALCIUM 9.3 mg/dl (8.6-10.4); GFR NON-AFRICAN AMERICAN > 60
[2018-09-21 14:53] LABS: B-TYPE NATRIURETIC PEPTIDE 3500 pg/mL (0-900)
--- NOTE | 2018-09-21 14:56 | RAD ---
Date of service: 09/21/2018 HISTORY: SOB COMPARISON: Chest radiographs 09/03/2018. TECHNIQUE: 1 view obtained. FINDINGS: LUNGS: No active pulmonary disease. PLEURA: No significant pleural effusion identified, no pneumothorax apparent. CARDIOVASCULAR: Calcific atherosclerotic changes are seen related to the thoracic aorta. Mild cardiomegaly reiterated. Bipolar permanent cardiac pacemaker again evident as well. No pulmonary vascular congestion. OSSEOUS STRUCTURES: S-shaped thoracolumbar spinal deformity distorts the mediastinum once again. VISUALIZED UPPER ABDOMEN: Normal. OTHER FINDINGS: None. IMPRESSION: No interval acute cardiopulmonary disease appreciated. Cardiomegaly stable and pacemaker reiterated.
[2018-09-21 15:03] LABS: URINE BILIRUBIN NEGATIVE (NEGATIVE); URINE BLOOD NEGATIVE (NEGATIVE); URINE CLARITY Clear (Clear); URINE COLOR Yellow (YELLOW); URINE GLUCOSE (UA) NORMAL (Normal); URINE LEUKOCYTE ESTERASE NEG Leu/uL (Negative); URINE PROTEIN NEGATIVE (NEGATIVE); URINE UROBILINOGEN NORMAL mg/dL (0.2-1.0)
--- NOTE | 2018-09-21 15:57 | CP.PCM.HP ---
History of Present Illness - History of Present Illness History of Present Illness: PGY-1 History and Physical for Dr. Gold Patient is a 73 year old male with PMHx COPD, CHF with EF 25-30%, A Fib with pacemaker, HTN, HTN, HLD, BPH who presents complaining of shortness of breath. Patient has had multiple hospitalizations here in the past for similar complaints, was recently hospitalized overnight in August for COPD/CHF exacerbation. She states that he knows he is supposed to restrict his fluid intake, and last exacerbation was due to drinking a large quantity of iced tea one day. However patient states that since then he has been compliant with his meds and fluid and salt restriction and cannot point to any inciting event as to why he has become acutely short of breath. He began to develop increased SOB ye sterday. SOB is worse with exertion and worse when lying flat. Denies CP, abd pain, N/V/D/C, F/C, coughing. pmhx of CHF(pacemaker) EF of 25% in 05/2018, COPD, HTN, HTN, HLD, diverticulosis pshx: pacemaker (10 years ago, patient states due for replacement), colostomy, colostomt reversal, herniorraphy meds: losartan, metoprolol, combivent/respimat, breo, flomax, finasteride, lipitor, ASA, xanax allergies: NKDA sochx: former 60 pack year tobacco/ former alcohol abuse PMD: Dr. Gold Cardio: Dr. Cai Pulm: Dr. Rowland Present on Admission - Present on Admission Any Indicators Present on Admission: No Review of Systems - Constitutional Constitutional: absent: Chills, Fever - EENT Eyes: absent: Blurred Vision, Diplopia Nose/Mouth/Throat: absent: Nasal Congestion, Nasal Discharge - Cardiovascular Cardiovascular: Dyspnea. absent: Chest Pain, Lightheadedness, Palpitations, Pedal Edema - Respiratory Respiratory: Dyspnea, Dyspnea on Exertion. absent: Cough, Wheezing, Pain with Coughing - Gastrointestinal Gastrointestinal: absent: Abdominal Pain, Nausea, Vomiting - Genitourinary Genitourinary: absent: Dysuria, Flank Pain - Musculoskeletal Musculoskeletal: absent: Back Pain, Neck Pain - Neurological Neurological: absent: Dizziness, Numbness, Focal Weakness, Tingling - Psychiatric Psychiatric: absent: Anxiety, Depression - Endocrine Endocrine: absent: Fatigue - Hematologic/Lymphatic Hematologic: absent: Easy Bleeding, Easy Bruising Past Patient History - Infectious Disease Hx of Infectious Diseases: None - Tetanus Immunizations Tetanus Immunization: Unknown - Past Medical History & Family History Past Medical History?: Yes - Past Social History Smoking Status: Former Smoker - CARDIAC Hx Cardia Arrhythmia: Yes Hx Congestive Heart Failure: Yes Hx Hypercholesterolemia: Yes Hx Hypertension: Yes Hx Pacemaker: Yes (2010) - PULMONARY Hx Chronic Obstructive Pulmonary Disease (COPD): Yes - RENAL Hx Chronic Kidney Disease: Yes Hx Kidney Stones: Yes - MUSCULOSKELETAL/RHEUMATOLOGICAL Hx Falls: No - GASTROINTESTINAL Hx Diverticulitis: Yes - GENITOURINARY/GYNECOLOGICAL Hx Genitourinary Disorders: Yes Hx Prostate Problems: Yes (BPH) - PSYCHIATRIC Hx Depression: Yes Hx Substance Use: No - SURGICAL HISTORY Hx Surgeries: Yes Other/Comment: CYSTOSCOPY STENT INSERTION stent removal lithotripsy. prostate surgery. hernia repair. pacemaker insertion - ANESTHESIA Hx Anesthesia: Yes Hx Anesthesia Reactions: No Hx Malignant Hyperthermia: No Meds Allergies/Adverse Reactions: Allergies Allergy/AdvReac Type Severity Reaction Status Date / Time No Known Allergies Allergy Verified 09/21/18 11:52 Physical Exam - Constitutional Appears: Non-toxic, No Acute Distress - Head Exam Head Exam: ATRAUMATIC, NORMOCEPHALIC - ENT Exam ENT Exam: Mucous Membranes Moist - Respiratory Exam Respiratory Exam: Rales, NORMAL BREATHING PATTERN. absent: Accessory Muscle Use, Chest Wall Tenderness, Wheezes, Stridor - Cardiovascular Exam Cardiovascular Exam: REGULAR RHYTHM, +S1, +S2 - Extremities Exam Extremities exam: Positive for: normal inspection. Negative for: pedal edema, tenderness - Neurological Exam Neurological exam: Alert, CN II-XII Intact, Oriented x3 - Psychiatric Exam Psychiatric exam: Normal Affect, Normal Mood - Skin Skin Exam: Dry, Intact Results - Vital Signs Recent Vital Signs: Last Vital Signs Temp 98.1 F 09/21/18 11:52 Pulse 77 09/21/18 15:29 Resp 18 09/21/18 15:29 BP 142/68 09/21/18 15:31 Pulse Ox 95 09/21/18 15:29 - Labs Result Diagrams: 09/21/18 14:25 09/21/18 14:25 Labs: Laboratory Results - last 24 hr 09/21/18 09/21/18 09/21/18 14:25 14:25 14:54 WBC 7.1 RBC 4.10 L Hgb 13.7 Hct 42.0 MCV 102.4 H MCH 33.4 H MCHC 32.6 L RDW 13.6 Plt Count 185 MPV 9.3 Neut % (Auto) 57.9 Lymph % (Auto) 29.2 [place] % (Auto) 9.3 Eos % (Auto) 3.1 Baso % (Auto) 0.5 Neut # (Auto) 4.1 Lymph # (Auto) 2.1 [place] # (Auto) 0.7 Eos # (Auto) 0.2 Baso # (Auto) 0.0 Sodium 140 Potassium 3.8 Chloride 103 Carbon Dioxide 27 Anion Gap 13 BUN 27 H Creatinine 1.1 Est GFR ( Amer) > 60 Est GFR (Non-Af Amer) > 60 Random Glucose 81 D Calcium 9.3 Total Bilirubin 0.8 AST 37 ALT 28 Alkaline Phosphatase 90 Troponin I 0.0260 NT-Pro-B Natriuret Pep 3500 H Total Protein 7.2 Albumin 4.0 Globulin 3.1 Albumin/Globulin Ratio 1.3 Urine Color Yellow Urine Clarity Clear Urine pH 7.0 Ur Specific [place] 1.011 Urine Protein Negative Urine Glucose (UA) Normal Urine Ketones Negative Urine Blood Negative Urine Nitrate Negative Urine Bilirubin Negative Urine Urobilinogen Normal Ur Leukocyte Esterase Neg Urine WBC (Auto) 1 Assessment & Plan - Assessment and Plan (Free Text) Assessment: 73 year old male with past medical history of COPD, CHF with EF 25-30%, pulmonary HTN, HTN, HLD, BPH is admitted for shortness of breath 2/2 CHF exacerbation vs. COPD exacerbation Respiratory distress 2/2 CHF Exacerbation vs. COPD exacerbation -CXR 09/21: No interval acute cardiopulmonary disease appreciated. Cardiomegaly stable and pacemaker reiterated. -Pro-BNP 3500 -No leukocytosis, afebrile -Tele -monitor I/Os -Lasix 20 IV daily (20 IV given in ED) -Solumedrol 40 IV daily (120 IV given in ED) -continue home meds Pulmicort, Brovana hx of COPD -Solumedrol 40 iv -duoneb q 4 GUILHERME -NC prn Hx of HCF s/p pacemaker EF 25% -Lasix 20 IV qd -Continue home meds cozaar, lopressor and aspirin HTN -continue home meds cozaar, lopressor HLD -Crestor 5 mg po hs BPH -continue home meds; flomax, finasteride Anxiety -continue home med xanax .25 mg po hs prn Ppx: GI: not indicated VTE: Lovenox 40mg SCDs Discussed w/ Dr. Alla Liang, PGY-1
[2018-09-21 16:54] VITALS: RESP 20
[2018-09-21] MEDS ORDERED: Albuterol-Ipratrop 3 mg / 0.5 (3 ml) UD INH PRN (17:15)
[2018-09-22] MEDS: Albuterol-Ipratrop 3 mg / 0.5 (3 ml) UD INH SCH ×7 (00:01→23:55)
--- NOTE | 2018-09-22 07:05 | CP.PCM.PN ---
Subjective - Date & Time of Evaluation Date of Evaluation: 09/22/18 Time of Evaluation: 07:03 - Subjective Subjective: Progress note for Dr. Gold. Patient seen and examined at bedside. States he has mild SOB this morning but overall feels much better. Denies fever, chills, chest pain, cough, nausea, vomiting, abdominal pain, lightheadedness, dizziness. Objective - Vital Signs/Intake and Output Vital Signs (last 24 hours): Temp Pulse Resp BP Pulse Ox 97.8 F 83 20 133/78 95 09/21/18 23:10 09/22/18 05:00 09/21/18 23:10 09/21/18 23:10 09/21/18 23:10 Intake and Output: 09/22/18 09/22/18 06:59 18:59 Intake Total 240 Balance 240 - Medications Medications: Current Medications Albuterol/Ipratropium (Duoneb 3 Mg/0.5 Mg (3 Ml) Ud) 3 ml INH RQ4 GUILHERME Last Admin: 09/22/18 03:27 Dose: Not Given Albuterol/Ipratropium (Duoneb 3 Mg/0.5 Mg (3 Ml) Ud) 3 ml INH RQ2 PRN PRN Reason: Shortness of Breath Alprazolam (Xanax) 0.25 mg PO HS PRN PRN Reason: Anxiety Stop: 09/28/18 22:01 Arformoterol Tartrate (Brovana) 15 mcg INH RQ12@1000,2200 [facility] Aspirin (Ecotrin) 81 mg PO DAILY [facility] Budesonide (Pulmicort Respules) 0.25 mg INH RQ12 [facility] Finasteride (Proscar) 5 mg PO DAILY [facility] Furosemide (Lasix) 20 mg IVP DAILY [facility] Heparin Sodium (Porcine) (Heparin) 5,000 units SC Q12 [facility] Last Admin: 09/21/18 21:45 Dose: Not Given Losartan Potassium (Cozaar) 25 mg PO DAILY [facility] Methylprednisolone (Solu-Medrol) 40 mg IVP DAILY [facility] Metoprolol Tartrate (Lopressor) 12.5 mg PO BID [facility] Last Admin: 09/21/18 18:33 Dose: 12.5 mg Rosuvastatin Calcium (Crestor) 10 mg PO HS [facility] Last Admin: 09/21/18 21:45 Dose: 10 mg Tamsulosin HCl (Flomax) 0.4 mg PO DAILY GUILHERME - Labs Labs: 09/21/18 14:25 09/21/18 14:25 - Constitutional Appears: Non-toxic, No Acute Distress - Head Exam Head Exam: ATRAUMATIC, NORMOCEPHALIC - Eye Exam Eye Exam: EOMI, Normal appearance, PERRL - ENT Exam ENT Exam: Mucous Membranes Moist - Neck Exam Neck Exam: Full ROM, Normal Inspection - Respiratory Exam Respiratory Exam: Clear to Ausculation Bilateral, NORMAL BREATHING PATTERN. absent: Rales, Rhonchi, Wheezes - Cardiovascular Exam Cardiovascular Exam: Irregular Rhythm, +S1, +S2 - GI/Abdominal Exam GI & Abdominal Exam: Soft, Normal Bowel Sounds. absent: Distended, Firm, Guarding, Tenderness - Extremities Exam Extremities Exam: Full ROM, Normal Capillary Refill, Normal Inspection. absent: Calf Tenderness, Pedal Edema - Neurological Exam Neurological Exam: Alert, Awake, CN II-XII Intact, Oriented x3 Additional comments: Moving all extremities equally. - Psychiatric Exam Psychiatric exam: Normal Affect, Normal Mood - Skin Skin Exam: Dry, Normal Color, Warm Assessment and Plan - Assessment and Plan (Free Text) Plan: 73 year old male with past medical history of COPD, CHF with EF 25-30%, pulmonary HTN, HTN, HLD, BPH is admitted for shortness of breath 2/2 CHF exacerbation vs. COPD exacerbation Respiratory distress 2/2 CHF Exacerbation vs. COPD exacerbation Acute -CXR 09/21: No interval acute cardiopulmonary disease appreciated. Cardiomegaly stable and pacemaker reiterated. -Pro-BNP 3500 -No leukocytosis, afebrile -Tele -monitor I/Os -Lasix 20 IV daily (20 IV given in ED) -Solumedrol 40 IV daily (120 IV given in ED) -continue home meds Pulmicort, Brovana New onset Afib Acute -Start Metoprolol 12.5mg PO BID -Start Eliquis 5mg PO Q12H -Cardiology consult, Dr. Cai Patient will need to be on anticoagulation as outpatient due to new onset afib, Continue current management hx of COPD chronic -Solumedrol 40 iv -duoneb q 4 GUILHERME -NC prn -Pulm consult, Dr. Rowland Hx of CHF s/p pacemaker EF 25% chronic -Lasix 20 IV qd -Aspirin 81mg daily -Continue home meds cozaar, lopressor and aspirin HTN chronic -continue home meds cozaar, lopressor HLD chronic -Crestor 5 mg po hs BPH chronic -continue home meds; flomax, finasteride Anxiety chronic -continue home med xanax .25 mg po hs prn Ppx: GI: not indicated VTE: patient started on Eliquis for Afib SCDs Nicotine patch Discussed w/ Dr. Alla Tarcey, PGY-1
[2018-09-22] MEDS: Budesonide 0.25 mg/2 ml Inhal Susp UD INH SCH (07:15)
[2018-09-22 07:41] LABS: BASO % 0.1 % (0.0-2.0); HEMOGLOBIN 14.5 g/dL (12.0-18.0); LYMPH # 0.7 K/uL (1.0-4.3); MEAN CORPUSCULAR HEMOGLOBIN 33.4 pg (27.0-31.0); MEAN CORPUSCULAR HGB CONC 33.1 g/dL (33.0-37.0); MEAN PLATELET VOLUME 8.9 fL (7.2-11.7); MONO # 0.1 K/uL (0.0-0.8); MONO % 0.9 % (0.0-10.0); NEUT # 7.5 K/uL (1.8-7.0); NRBC % 0.1 % (0.0-2.0); PLATELET COUNT 191 K/uL (130-400); RBC 4.36 Mil/uL (4.40-5.90); RED CELL DISTRIBUTION WIDTH 14.2 % (11.5-14.5); WHITE BLOOD COUNT 8.3 K/uL (4.8-10.8)
[2018-09-22 08:14] LABS: ALB/GLOB RATIO 1.3 (1.0-2.1); ALBUMIN 3.8 g/dL (3.5-5.0); ALT/SGPT 22 U/L (21-72); AST/SGOT 28 U/L (17-59); BLOOD UREA NITROGEN 35 mg/dL (9-20); GFR NON-AFRICAN AMERICAN 59
[2018-09-22] MEDS: Arformoterol 15 mcg/2 ml Inh Sol INH SCH ×2 (09:20→19:14)
[2018-09-22 09:44] LABS: BANDS 4 % (0-2); LYMPHOCYTE 9 % (20-40); MONOCYTE 1 % (0-10); NEUTROPHIL 85 % (50-75); REACTIVE LYMPHOCYTES 1 % (0-0); TOTAL CELLS COUNTED 100
[2018-09-22] MEDS: MethylPREDNISolone 40 mg Vial IVP SCH (09:46)
[2018-09-22 09:47] LABS: PLATELET ESTIMATE NORMAL (NORMAL)
[2018-09-22] MEDS ORDERED: Enoxaparin 30 mg Syringe SC SCH (10:30)
--- NOTE | 2018-09-22 12:14 | CARD ---
APPROVED REPORT Date of service: 09/21/2018 EKG Measurement Heart [id number] <Conclusion> Atrial fibrillation with occasional ventricular-paced complexes and with premature ventricular or aberrantly conducted comple Right bundle branch block Left anterior fascicular block Bifascicular block Minimal voltage criteria for LVH, may be normal variant Abnormal ECG
--- NOTE | 2018-09-22 15:00 | CP.PCM.CON ---
<Kt Bentley - Last Filed: 09/22/18 15:22> History of Present Illness - History of Present Illness History of Present Illness: PGY2 Cardiology Consult Note for Dr. Cai Reason for Consult: New Onset Afib Patient is a 73 year old male with a past medical history of COPD, CHF with EF 25-30%, A Fib with pacemaker, HTN, HTN, HLD, BPH who presented to the hospital complaining of shortness of breath. He has had multiple hospitalizations for CHF exacerbations in the past, most recently September 03, 2018. He decided to come to the hospital yesterday because he noticed his shortness breath and did not want to risk it getting worse. HWhile in the hospital, he was found to be in afib. He feels that he is breathing better already and is almost back to baseline. He denies any fevers, chills, nausea, vomiting, diarrhea, constipation, chest pain, lightheadedness or dizziness. PMH: CHF(pacemaker/AICD) EF of 25% in 05/2018, COPD, HTN, HTN, HLD, diverticulosis PSH: pacemaker (10 years ago, patient states due for replacement), colostomy, colostomy reversal, hernia repair Social: current smoker (smoke 4-5 cigs per day, 60 pack year hx), former alcohol abuse Meds: losartan, metoprolol, combivent/respimat, breo, flomax, finasteride, lipitor, ASA, xanax Allergies: NKDA PMD: Dr. Gold Pulm: Dr. Rowland Review of Systems - Review of Systems All systems: reviewed and no additional remarkable complaints except (as per HPI) Past Patient History - Infectious Disease Hx of Infectious Diseases: None - Tetanus Immunizations Tetanus Immunization: Unknown - Past Medical History & Family History Past Medical History?: Yes - Past Social History Smoking Status: Former Smoker - CARDIAC Hx Congestive Heart Failure: Yes Hx Hypercholesterolemia: Yes Hx Hypertension: Yes - PULMONARY Hx Chronic Obstructive Pulmonary Disease (COPD): Yes - RENAL Hx Chronic Kidney Disease: Yes Hx Kidney Stones: Yes - ENDOCRINE/METABOLIC Hx Diabetes Mellitus Type 2: Yes - MUSCULOSKELETAL/RHEUMATOLOGICAL Hx Falls: No - GASTROINTESTINAL Hx Diverticulitis: Yes - GENITOURINARY/GYNECOLOGICAL Hx Genitourinary Disorders: Yes Hx Prostate Problems: Yes (BPH) - PSYCHIATRIC Hx Depression: Yes Hx Substance Use: No - SURGICAL HISTORY Hx Surgeries: Yes Other/Comment: CYSTOSCOPY STENT INSERTION stent removal lithotripsy. prostate surgery. hernia repair. pacemaker insertion - ANESTHESIA Hx Anesthesia: Yes Hx Anesthesia Reactions: No Hx Malignant Hyperthermia: No Meds Allergies/Adverse Reactions: Allergies Allergy/AdvReac Type Severity Reaction Status Date / Time No Known Allergies Allergy Verified 09/21/18 11:52 - Medications Medications: Current Medications Albuterol/Ipratropium (Duoneb 3 Mg/0.5 Mg (3 Ml) Ud) 3 ml INH RQ4 [facility] Last Admin: 09/22/18 11:20 Dose: 3 ml Albuterol/Ipratropium (Duoneb 3 Mg/0.5 Mg (3 Ml) Ud) 3 ml INH RQ2 PRN PRN Reason: Shortness of Breath Alprazolam (Xanax) 0.25 mg PO HS PRN PRN Reason: Anxiety Stop: 09/28/18 22:01 Apixaban (Eliquis) 5 mg PO Q12 [facility] Arformoterol Tartrate (Brovana) 15 mcg INH RQ12@1000,2200 [facility] Last Admin: 09/22/18 09:20 Dose: 15 mcg Budesonide (Pulmicort Respules) 0.25 mg INH RQ12 [facility] Last Admin: 09/22/18 07:15 Dose: 0.25 mg Carvedilol (Coreg) 6.25 mg PO BID [facility] Finasteride (Proscar) 5 mg PO DAILY [facility] Last Admin: 09/22/18 09:47 Dose: 5 mg Furosemide (Lasix) 20 mg IVP DAILY [facility] Last Admin: 09/22/18 09:45 Dose: 20 mg Losartan Potassium (Cozaar) 25 mg PO DAILY [facility] Last Admin: 09/22/18 09:44 Dose: 25 mg Methylprednisolone (Solu-Medrol) 40 mg IVP DAILY [facility] Last Admin: 09/22/18 09:46 Dose: 40 mg Metoprolol Tartrate (Lopressor) 12.5 mg PO BID [facility] Last Admin: 09/22/18 09:44 Dose: 12.5 mg Nicotine (Nicoderm Cq) 1 patch TD DAILY [facility] Rosuvastatin Calcium (Crestor) 10 mg PO HS [facility] Last Admin: 09/21/18 21:45 Dose: 10 mg Tamsulosin HCl (Flomax) 0.4 mg PO DAILY [facility] Last Admin: 09/22/18 09:46 Dose: 0.4 mg Physical Exam - Constitutional Appears: Non-toxic, No Acute Distress - Head Exam Head Exam: ATRAUMATIC, NORMOCEPHALIC - Eye Exam Eye Exam: Normal appearance - ENT Exam ENT Exam: Mucous Membranes Moist - Neck Exam Neck exam: Negative for: Lymphadenopathy, Tenderness - Respiratory Exam Respiratory Exam: Clear to Auscultation Bilateral, NORMAL BREATHING PATTERN. absent: Accessory Muscle Use, Rales, Rhonchi, Wheezes, Respiratory Distress - Cardiovascular Exam Cardiovascular Exam: Irregular Rhythm, +S1, +S2 - GI/Abdominal Exam GI & Abdominal Exam: Soft. absent: Distended, Firm, Guarding, Rigid, Tenderness - Extremities Exam Extremities exam: Positive for: normal inspection, pedal pulses present. Negative for: calf tenderness, pedal edema - Neurological Exam Neurological exam: Alert, Oriented x3 - Psychiatric Exam Psychiatric exam: Normal Affect, Normal Mood - Skin Skin Exam: Dry, Warm Results - Vital Signs Recent Vital Signs: Last Vital Signs Temp 97 F L 09/22/18 07:00 Pulse 78 09/22/18 07:00 Resp 20 09/22/18 07:00 BP 125/68 09/22/18 09:45 Pulse Ox 97 09/22/18 07:00 - Labs Result Diagrams: 09/22/18 07:25 09/22/18 07:25 Labs: Laboratory Results - last 24 hr 09/21/18 09/21/18 09/22/18 14:25 14:54 07:25 WBC 8.3 RBC 4.36 L Hgb 14.5 Hct 44.0 MCV 101.0 H MCH 33.4 H MCHC 33.1 RDW 14.2 Plt Count 191 MPV 8.9 Neut % (Auto) 90.0 H Lymph % (Auto) 9.0 L [place] % (Auto) 0.9 Eos % (Auto) 0.0 Baso % (Auto) 0.1 Neut # (Auto) 7.5 H Lymph # (Auto) 0.7 L [place] # (Auto) 0.1 Eos # (Auto) 0.0 Baso # (Auto) 0.0 Neutrophils % (Manual) 85 H Band Neutrophils % 4 H Lymphocytes % (Manual) 9 L Reactive Lymphs % 1 H Monocytes % (Manual) 1 Platelet Estimate Normal Macrocytosis (manual) Slight Sodium Potassium Chloride Carbon Dioxide Anion Gap BUN Creatinine Est GFR ( Amer) Est GFR (Non-Af Amer) Random Glucose Calcium Total Bilirubin AST ALT Alkaline Phosphatase Troponin I 0.0260 NT-Pro-B Natriuret Pep 3500 H Total Protein Albumin Globulin Albumin/Globulin Ratio Urine Color Yellow Urine Clarity Clear Urine pH 7.0 Ur Specific [place] 1.011 Urine Protein Negative Urine Glucose (UA) Normal Urine Ketones Negative Urine Blood Negative Urine Nitrate Negative Urine Bilirubin Negative Urine Urobilinogen Normal Ur Leukocyte Esterase Neg Urine WBC (Auto) 1 09/22/18 07:25 WBC RBC Hgb Hct MCV MCH MCHC RDW Plt Count MPV Neut % (Auto) Lymph % (Auto) [place] % (Auto) Eos % (Auto) Baso % (Auto) Neut # (Auto) Lymph # (Auto) [place] # (Auto) Eos # (Auto) Baso # (Auto) Neutrophils % (Manual) Band Neutrophils % Lymphocytes % (Manual) Reactive Lymphs % Monocytes % (Manual) Platelet Estimate Macrocytosis (manual) Sodium 137 Potassium 3.9 Chloride 101 Carbon Dioxide 25 Anion Gap 15 BUN 35 H Creatinine 1.2 Est GFR ( Amer) > 60 Est GFR (Non-Af Amer) 59 Random Glucose 130 H D Calcium 9.0 Total Bilirubin 0.7 AST 28 ALT 22 Alkaline Phosphatase 77 Troponin I NT-Pro-B Natriuret Pep Total Protein 6.8 Albumin 3.8 Globulin 3.0 Albumin/Globulin Ratio 1.3 Urine Color Urine Clarity Urine pH Ur Specific [place] Urine Protein Urine Glucose (UA) Urine Ketones Urine Blood Urine Nitrate Urine Bilirubin Urine Urobilinogen Ur Leukocyte Esterase Urine WBC (Auto) Assessment & Plan - Assessment and Plan (Free Text) Plan: Acute on Chronic HFrEF New onset afib patient currently in afib on monitor rate controlled Troponin 0.026 (09/21/18) BNP 3500 (09/21/18) continue diuresis Patient will need to be on anticoagulation as outpatient due to new onset afib Continue current management * Crestor 10mg PO HS * Losartan 25mg PO daily * Metoprolol Tartate 12.5mg OP BID * Lasix 20mg IVP daily * Eliquis 5mg PO q12h COPD Pulmonology consulted, Dr. Rowland Management as per pulm and primary team Case discussed with Dr. Trell Meraz Mc PGY2 <Giovanny Cai - Last Filed: 09/23/18 19:56> Results - Vital Signs Recent Vital Signs: Last Vital Signs Temp 97.7 F 09/23/18 07:00 Pulse 96 H 09/23/18 08:00 Resp 20 09/23/18 07:00 BP 127/75 09/23/18 10:27 Pulse Ox 96 09/23/18 08:00 - Labs Result Diagrams: 09/23/18 08:24 09/23/18 08:24 Labs: Laboratory Results - last 24 hr 09/23/18 09/23/18 08:24 08:24 WBC 17.0 H D RBC 4.23 L Hgb 14.0 Hct 43.6 MCV 103.2 H D MCH 33.2 H MCHC 32.2 L RDW 14.2 Plt Count 198 MPV 9.0 Neut % (Auto) 87.3 H Lymph % (Auto) 7.1 L [place] % (Auto) 5.5 Eos % (Auto) 0.0 Baso % (Auto) 0.1 Neut # (Auto) 14.8 H Lymph # (Auto) 1.2 [place] # (Auto) 0.9 H Eos # (Auto) 0.0 Baso # (Auto) 0.0 Neutrophils % (Manual) 88 H Band Neutrophils % 2 Lymphocytes % (Manual) 7 L Monocytes % (Manual) 3 Platelet Estimate Normal Large Platelets Present Macrocytosis (manual) Slight Sodium 139 Potassium 4.2 Chloride 101 Carbon Dioxide 26 Anion Gap 15 BUN 48 H Creatinine 1.5 Est GFR ( Amer) 55 Est GFR (Non-Af Amer) 46 Random Glucose 103 D Calcium 8.6 Total Bilirubin 0.5 AST 26 ALT 19 L Alkaline Phosphatase 68 Total Protein 6.9 Albumin 3.9 Globulin 3.0 Albumin/Globulin Ratio 1.3 Assessment & Plan - Assessment and Plan (Free Text) Plan: Patient seen, examined and evaluated personally by me. Plan of care d/w the medical practice assistant and as documented
[2018-09-22] MEDS ORDERED: Oxycodone/Acetaminophen 5/325 mg Tab PO SCH (16:15)
--- NOTE | 2018-09-22 18:41 | CP.PCM.CON ---
History of Present Illness - History of Present Illness History of Present Illness: Reason for consultation: Shortness of breath 73-year-old male with history of COPD, CHF, A. fib status post pacemaker insertion, hypertension who presented to emergency room with worsening shortness of breath. Patient attributes his symptoms to the smoking. Denies cough, denies fever chills, denies chest pain. PMH: CHF(pacemaker/AICD) EF of 25% in 05/2018, COPD, HTN, HTN, HLD, diverticulosis PSH: pacemaker (10 years ago, patient states due for replacement), colostomy, colostomy reversal, hernia repair Social: current smoker (smoke 4-5 cigs per day, 60 pack year hx), former alcohol abuse Meds: losartan, metoprolol, combivent/respimat, breo, flomax, finasteride, lipitor, ASA, xanax Allergies: NKDA Review of Systems - Review of Systems All systems: reviewed and no additional remarkable complaints except (Shortness of breath) Past Patient History - Infectious Disease Hx of Infectious Diseases: None - Tetanus Immunizations Tetanus Immunization: Unknown - Past Medical History & Family History Past Medical History?: Yes - Past Social History Smoking Status: Light Smoker < 10 Cigarettes Daily - CARDIAC Hx Congestive Heart Failure: Yes Hx Hypercholesterolemia: Yes Hx Hypertension: Yes - PULMONARY Hx Chronic Obstructive Pulmonary Disease (COPD): Yes - RENAL Hx Chronic Kidney Disease: Yes Hx Kidney Stones: Yes - ENDOCRINE/METABOLIC Hx Diabetes Mellitus Type 2: Yes - MUSCULOSKELETAL/RHEUMATOLOGICAL Hx Falls: No - GASTROINTESTINAL Hx Diverticulitis: Yes - GENITOURINARY/GYNECOLOGICAL Hx Genitourinary Disorders: Yes Hx Prostate Problems: Yes (BPH) - PSYCHIATRIC Hx Depression: Yes Hx Substance Use: No - SURGICAL HISTORY Hx Surgeries: Yes Other/Comment: CYSTOSCOPY STENT INSERTION stent removal lithotripsy. prostate surgery. hernia repair. pacemaker insertion - ANESTHESIA Hx Anesthesia: Yes Hx Anesthesia Reactions: No Hx Malignant Hyperthermia: No Meds Allergies/Adverse Reactions: Allergies Allergy/AdvReac Type Severity Reaction Status Date / Time No Known Allergies Allergy Verified 09/21/18 11:52 - Medications Medications: Current Medications Albuterol/Ipratropium (Duoneb 3 Mg/0.5 Mg (3 Ml) Ud) 3 ml INH RQ4 [facility] Last Admin: 09/22/18 11:20 Dose: 3 ml Albuterol/Ipratropium (Duoneb 3 Mg/0.5 Mg (3 Ml) Ud) 3 ml INH RQ2 PRN PRN Reason: Shortness of Breath Alprazolam (Xanax) 0.25 mg PO HS PRN PRN Reason: Anxiety Stop: 09/28/18 22:01 Apixaban (Eliquis) 5 mg PO Q12 [facility] Last Admin: 09/22/18 14:10 Dose: 5 mg Arformoterol Tartrate (Brovana) 15 mcg INH RQ12@1000,2200 [facility] Last Admin: 09/22/18 09:20 Dose: 15 mcg Budesonide (Pulmicort Respules) 0.25 mg INH RQ12 [facility] Last Admin: 09/22/18 07:15 Dose: 0.25 mg Finasteride (Proscar) 5 mg PO DAILY [facility] Last Admin: 09/22/18 09:47 Dose: 5 mg Furosemide (Lasix) 20 mg IVP DAILY [facility] Last Admin: 09/22/18 09:45 Dose: 20 mg Losartan Potassium (Cozaar) 25 mg PO DAILY [facility] Last Admin: 09/22/18 09:44 Dose: 25 mg Methylprednisolone (Solu-Medrol) 40 mg IVP DAILY [facility] Last Admin: 09/22/18 09:46 Dose: 40 mg Metoprolol Tartrate (Lopressor) 12.5 mg PO BID [facility] Last Admin: 09/22/18 17:05 Dose: 12.5 mg Nicotine (Nicoderm Cq) 1 patch TD DAILY [facility] Last Admin: 09/22/18 15:02 Dose: 1 patch Oxycodone/Acetaminophen (Percocet 5/325 Mg Tab) 1 tab PO Q12H [facility] Stop: 09/25/18 16:16 Last Admin: 09/22/18 16:42 Dose: 1 tab Rosuvastatin Calcium (Crestor) 10 mg PO HS [facility] Last Admin: 09/21/18 21:45 Dose: 10 mg Tamsulosin HCl (Flomax) 0.4 mg PO DAILY [facility] Last Admin: 09/22/18 09:46 Dose: 0.4 mg Physical Exam - Head Exam Head Exam: ATRAUMATIC, NORMOCEPHALIC - ENT Exam ENT Exam: Mucous Membranes Moist - Neck Exam Neck exam: Positive for: Normal Inspection - Respiratory Exam Respiratory Exam: Decreased Breath Sounds - Cardiovascular Exam Cardiovascular Exam: Irregular Rhythm - GI/Abdominal Exam GI & Abdominal Exam: Normal Bowel Sounds, Soft - Extremities Exam Extremities exam: Positive for: normal inspection Results - Vital Signs Recent Vital Signs: Last Vital Signs Temp 98.1 F 09/22/18 16:00 Pulse 90 09/22/18 16:11 Resp 20 09/22/18 16:00 BP 121/65 09/22/18 16:00 Pulse Ox 98 09/22/18 16:00 - Labs Result Diagrams: 09/22/18 07:25 09/22/18 07:25 Labs: Laboratory Results - last 24 hr 09/22/18 09/22/18 07:25 07:25 WBC 8.3 RBC 4.36 L Hgb 14.5 Hct 44.0 MCV 101.0 H MCH 33.4 H MCHC 33.1 RDW 14.2 Plt Count 191 MPV 8.9 Neut % (Auto) 90.0 H Lymph % (Auto) 9.0 L [place] % (Auto) 0.9 Eos % (Auto) 0.0 Baso % (Auto) 0.1 Neut # (Auto) 7.5 H Lymph # (Auto) 0.7 L [place] # (Auto) 0.1 Eos # (Auto) 0.0 Baso # (Auto) 0.0 Neutrophils % (Manual) 85 H Band Neutrophils % 4 H Lymphocytes % (Manual) 9 L Reactive Lymphs % 1 H Monocytes % (Manual) 1 Platelet Estimate Normal Macrocytosis (manual) Slight Sodium 137 Potassium 3.9 Chloride 101 Carbon Dioxide 25 Anion Gap 15 BUN 35 H Creatinine 1.2 Est GFR ( Amer) > 60 Est GFR (Non-Af Amer) 59 Random Glucose 130 H D Calcium 9.0 Total Bilirubin 0.7 AST 28 ALT 22 Alkaline Phosphatase 77 Total Protein 6.8 Albumin 3.8 Globulin 3.0 Albumin/Globulin Ratio 1.3 Assessment & Plan (1) COPD exacerbation Assessment and Plan: Shortness of breath most likely secondary to COPD exacerbation Nebulizer treatment and steroids Cardiac work-up Will follow-up Status: Acute
[2018-09-23] MEDS: Albuterol-Ipratrop 3 mg / 0.5 (3 ml) UD INH SCH ×3 (03:16→11:17)
[2018-09-23] MEDS: Budesonide 0.25 mg/2 ml Inhal Susp UD INH SCH (07:20)
--- NOTE | 2018-09-23 07:24 | CP.PCM.PN ---
Subjective - Date & Time of Evaluation Date of Evaluation: 09/23/18 Time of Evaluation: 07:23 - Subjective Subjective: Progress note for Dr. Gold. Patient seen and examined at bedside. States SOB is much improved. Denies fever, chills, chest pain, palpitations, cough, nausea, vomiting, abdominal pain, lightheadedness, dizziness. Objective - Vital Signs/Intake and Output Vital Signs (last 24 hours): Temp Pulse Resp BP Pulse Ox 98.3 F 93 H 20 120/55 L 95 09/22/18 23:28 09/23/18 04:09 09/22/18 23:28 09/22/18 23:28 09/22/18 23:28 - Medications Medications: Current Medications Albuterol/Ipratropium (Duoneb 3 Mg/0.5 Mg (3 Ml) Ud) 3 ml INH RQ4 [facility] Last Admin: 09/23/18 03:16 Dose: 3 ml Albuterol/Ipratropium (Duoneb 3 Mg/0.5 Mg (3 Ml) Ud) 3 ml INH RQ2 PRN PRN Reason: Shortness of Breath Alprazolam (Xanax) 0.25 mg PO HS PRN PRN Reason: Anxiety Stop: 09/28/18 22:01 Last Admin: 09/22/18 21:40 Dose: 0.25 mg Apixaban (Eliquis) 5 mg PO Q12 [facility] Last Admin: 09/22/18 21:39 Dose: 5 mg Arformoterol Tartrate (Brovana) 15 mcg INH RQ12@1000,2200 [facility] Last Admin: 09/22/18 19:14 Dose: 15 mcg Budesonide (Pulmicort Respules) 0.25 mg INH RQ12 [facility] Last Admin: 09/22/18 07:15 Dose: 0.25 mg Finasteride (Proscar) 5 mg PO DAILY [facility] Last Admin: 09/22/18 09:47 Dose: 5 mg Furosemide (Lasix) 20 mg IVP DAILY [facility] Last Admin: 09/22/18 09:45 Dose: 20 mg Losartan Potassium (Cozaar) 25 mg PO DAILY [facility] Last Admin: 09/22/18 09:44 Dose: 25 mg Methylprednisolone (Solu-Medrol) 40 mg IVP DAILY [facility] Last Admin: 09/22/18 09:46 Dose: 40 mg Metoprolol Tartrate (Lopressor) 12.5 mg PO BID [facility] Last Admin: 09/22/18 17:05 Dose: 12.5 mg Nicotine (Nicoderm Cq) 1 patch TD DAILY [facility] Last Admin: 09/22/18 15:02 Dose: 1 patch Oxycodone/Acetaminophen (Percocet 5/325 Mg Tab) 1 tab PO Q12H [facility] Stop: 09/26/18 09:01 Rosuvastatin Calcium (Crestor) 10 mg PO HS [facility] Last Admin: 09/22/18 21:41 Dose: 10 mg Tamsulosin HCl (Flomax) 0.4 mg PO DAILY [facility] Last Admin: 09/22/18 09:46 Dose: 0.4 mg - Labs Labs: 09/22/18 07:25 09/22/18 07:25 - Additional Findings Additional findings: - Constitutional Appears: Non-toxic, No Acute Distress - Head Exam Head Exam: ATRAUMATIC, NORMOCEPHALIC - Eye Exam Eye Exam: EOMI, Normal appearance, PERRL - ENT Exam ENT Exam: Mucous Membranes Moist - Neck Exam Neck Exam: Full ROM, Normal Inspection - Respiratory Exam Respiratory Exam: Clear to Ausculation Bilateral, NORMAL BREATHING PATTERN. absent: Rales, Rhonchi, Wheezes - Cardiovascular Exam Cardiovascular Exam: Irregular Rhythm, +S1, +S2 - GI/Abdominal Exam GI & Abdominal Exam: Soft, Normal Bowel Sounds. absent: Distended, Firm, Guarding, Tenderness - Extremities Exam Extremities Exam: Full ROM, Normal Capillary Refill, Normal Inspection. absent: Calf Tenderness, Pedal Edema - Neurological Exam Neurological Exam: Alert, Awake, CN II-XII Intact, Oriented x3 Additional comments: Moving all extremities equally. - Psychiatric Exam Psychiatric exam: Normal Affect, Normal Mood - Skin Skin Exam: Dry, Normal Color, Warm Assessment and Plan - Assessment and Plan (Free Text) Plan: 73 year old male with past medical history of COPD, CHF with EF 25-30%, pulmonary HTN, HTN, HLD, BPH is admitted for shortness of breath 2/2 CHF exace rbation vs. COPD exacerbation Respiratory distress 2/2 CHF Exacerbation vs. COPD exacerbation Acute -CXR 09/21: No interval acute cardiopulmonary disease appreciated. Cardiomegaly stable and pacemaker reiterated. -Pro-BNP 3500 -No leukocytosis, afebrile -Tele -monitor I/Os -Lasix 20 IV daily (20 IV given in ED) -Solumedrol 40 IV daily (120 IV given in ED) -continue home meds [place] New onset Afib Acute -Start Metoprolol 12.5mg PO BID -Start Eliquis 5mg PO Q12H -Cardiology consult, Dr. Cai Patient will need to be on anticoagulation as outpatient due to new onset afib, Continue current management hx of COPD chronic -Solumedrol 40 iv -duoneb q 4 [facility] -NC prn -Pulm consult, Dr. Rowland Continue nebs and steroids Hx of CHF s/p pacemaker EF 25% chronic -Lasix 20 IV qd -Aspirin 81mg daily -Continue home meds cozaar, lopressor and aspirin HTN chronic -continue home meds cozaar, lopressor HLD chronic -Crestor 5 mg po hs BPH chronic -continue home meds; flomax, finasteride Anxiety chronic -continue home med xanax .25 mg po hs prn Ppx: GI: not indicated VTE: patient started on Eliquis for Afib SCDs Nicotine patch Discussed w/ Dr. Alla Tracey, PGY-1
[2018-09-23 07:41] VITALS: TEMP 97.7; O2SAT 96
[2018-09-23 08:49] LABS: BASO % 0.1 % (0.0-2.0); LYMPH # 1.2 K/uL (1.0-4.3); LYMPH % 7.1 % (20.0-40.0); MEAN CORPUSCULAR HEMOGLOBIN 33.2 pg (27.0-31.0); MEAN CORPUSCULAR HGB CONC 32.2 g/dL (33.0-37.0); MONO # 0.9 K/uL (0.0-0.8); MONO % 5.5 % (0.0-10.0); NEUT # 14.8 K/uL (1.8-7.0); NEUT % 87.3 % (50.0-75.0); PLATELET COUNT 198 K/uL (130-400); RBC 4.23 Mil/uL (4.40-5.90); RED CELL DISTRIBUTION WIDTH 14.2 % (11.5-14.5)
[2018-09-23 08:50] LABS: MEAN CELL VOLUME 103.2 fL (80.0-94.0)
[2018-09-23 08:56] LABS: ALB/GLOB RATIO 1.3 (1.0-2.1); ALBUMIN 3.9 g/dL (3.5-5.0); CALCIUM 8.6 mg/dl (8.6-10.4)
[2018-09-23] MEDS ORDERED: Oxycodone/Acetaminophen 5/325 mg Tab PO SCH (09:00)
[2018-09-23] MEDS: Arformoterol 15 mcg/2 ml Inh Sol INH SCH (09:25)
[2018-09-23 09:56] LABS: BANDS 2 % (0-2); LARGE PLATELETS PRESENT; LYMPHOCYTE 7 % (20-40); MONOCYTE 3 % (0-10); NEUTROPHIL 88 % (50-75); PLATELET ESTIMATE NORMAL (NORMAL); TOTAL CELLS COUNTED 100
[2018-09-23] MEDS ORDERED: Enoxaparin 40 mg Syringe SC SCH (10:00)
[2018-09-23] MEDS: MethylPREDNISolone 40 mg Vial IVP SCH (10:27)
[2018-09-23 10:46] VITALS: BP 127/75
--- NOTE | 2018-09-23 11:14 | CP.PCM.DIS ---
Provider - Provider Date of Admission: 09/21/18 15:12 Attending physician: Bandar Gold Jr, MD Consults: 09/22/18 10:26 Cardiology Consult Routine Comment: Consulting Provider: Giovanny Cai Consulting Physician: Giovanny Cai Reason for Consult: new onset Afib 09/22/18 10:28 Pulmonology Consult Routine Comment: Consulting Provider: Ham Rowland Consulting Physician: Ham Rowland Reason for Consult: COPD exacerbation Time Spent in preparation of Discharge (in minutes): 35 Diagnosis - Discharge Diagnosis (1) COPD exacerbation Status: Acute (2) Atrial fibrillation Status: Acute Hospital Course - Lab Results Lab Results: Most Recent Lab Values WBC 17.0 K/uL (4.8-10.8) H D 09/23/18 08:24 RBC 4.23 Mil/uL (4.40-5.90) L 09/23/18 08:24 Hgb 14.0 g/dL (12.0-18.0) 09/23/18 08:24 Hct 43.6 % (35.0-51.0) 09/23/18 08:24 MCV 103.2 fL (80.0-94.0) H D 09/23/18 08:24 MCH 33.2 pg (27.0-31.0) H 09/23/18 08:24 MCHC 32.2 g/dL (33.0-37.0) L 09/23/18 08:24 RDW 14.2 % (11.5-14.5) 09/23/18 08:24 Plt Count 198 K/uL (130-400) 09/23/18 08:24 MPV 9.0 fL (7.2-11.7) 09/23/18 08:24 Neut % (Auto) 87.3 % (50.0-75.0) H 09/23/18 08:24 Lymph % (Auto) 7.1 % (20.0-40.0) L 09/23/18 08:24 Daniels % (Auto) 5.5 % (0.0-10.0) 09/23/18 08:24 Eos % (Auto) 0.0 % (0.0-4.0) 09/23/18 08:24 Baso % (Auto) 0.1 % (0.0-2.0) 09/23/18 08:24 Neut # (Auto) 14.8 K/uL (1.8-7.0) H 09/23/18 08:24 Lymph # (Auto) 1.2 K/uL (1.0-4.3) 09/23/18 08:24 Daniels # (Auto) 0.9 K/uL (0.0-0.8) H 09/23/18 08:24 Eos # (Auto) 0.0 K/uL (0.0-0.7) 09/23/18 08:24 Baso # (Auto) 0.0 K/uL (0.0-0.2) 09/23/18 08:24 Neutrophils % (Manual) 88 % (50-75) H 09/23/18 08:24 Band Neutrophils % 2 % (0-2) 09/23/18 08:24 Lymphocytes % (Manual) 7 % (20-40) L 09/23/18 08:24 Reactive Lymphs % 1 % (0-0) H 09/22/18 07:25 Monocytes % (Manual) 3 % (0-10) 09/23/18 08:24 Platelet Estimate Normal (NORMAL) 09/23/18 08:24 Large Platelets Present 09/23/18 08:24 Macrocytosis (manual) Slight 09/23/18 08:24 Sodium 139 mmol/L (132-148) 09/23/18 08:24 Potassium 4.2 mmol/L (3.6-5.2) 09/23/18 08:24 Chloride 101 mmol/L (98-107) 09/23/18 08:24 Carbon Dioxide 26 mmol/L (22-30) 09/23/18 08:24 Anion Gap 15 (10-20) 09/23/18 08:24 BUN 48 mg/dL (9-20) H 09/23/18 08:24 Creatinine 1.5 mg/dL (0.8-1.5) 09/23/18 08:24 Est GFR ( Amer) 55 09/23/18 08:24 Est GFR (Non-Af Amer) 46 09/23/18 08:24 Random Glucose 103 mg/dL (75-110) D 09/23/18 08:24 Calcium 8.6 mg/dl (8.6-10.4) 09/23/18 08:24 Total Bilirubin 0.5 mg/dL (0.2-1.3) 09/23/18 08:24 AST 26 U/L (17-59) 09/23/18 08:24 ALT 19 U/L (21-72) L 09/23/18 08:24 Alkaline Phosphatase 68 U/L (38-126) 09/23/18 08:24 Troponin I 0.0260 ng/mL (0.00-0.120) 09/21/18 14:25 NT-Pro-B Natriuret Pep 3500 pg/mL (0-900) H 09/21/18 14:25 Total Protein 6.9 g/dL (6.3-8.3) 09/23/18 08:24 Albumin 3.9 g/dL (3.5-5.0) 09/23/18 08:24 Globulin 3.0 gm/dL (2.2-3.9) 09/23/18 08:24 Albumin/Globulin Ratio 1.3 (1.0-2.1) 09/23/18 08:24 Urine Color Yellow (YELLOW) 09/21/18 14:54 Urine Clarity Clear (Clear) 09/21/18 14:54 Urine pH 7.0 (5.0-8.0) 09/21/18 14:54 Ur Specific [place] 1.011 (1.003-1.030) 09/21/18 14:54 Urine Protein Negative mg/dL (NEGATIVE) 09/21/18 14:54 Urine Glucose (UA) Normal mg/dL (Normal) 09/21/18 14:54 Urine Ketones Negative mg/dL (NEGATIVE) 09/21/18 14:54 Urine Blood Negative (NEGATIVE) 09/21/18 14:54 Urine Nitrate Negative (NEGATIVE) 09/21/18 14:54 Urine Bilirubin Negative (NEGATIVE) 09/21/18 14:54 Urine Urobilinogen Normal mg/dL (0.2-1.0) 09/21/18 14:54 Ur Leukocyte Esterase Neg Aleksey/uL (Negative) 09/21/18 14:54 Urine WBC (Auto) 1 /hpf (0-5) 09/21/18 14:54 - Hospital Course Hospital Course: On admission: Patient is a 73 year old male with PMHx COPD, CHF with EF 25-30% with pacemaker, HTN, HTN, HLD, BPH who presents complaining of shortness of breath. Patient has had multiple hospitalizations here in the past for similar complaints, was recently hospitalized overnight in August for COPD/CHF exacerbation. She states that he knows he is supposed to restrict his fluid intake, and last exacerbation was due to drinking a large quantity of iced tea one day. However patient states that since then he has been compliant with his meds and fluid and salt restriction and cannot point to any inciting event as to why he has become acutely short of breath. He began to develop increased SOB yesterday. SOB is worse with exertion and worse when lying flat. Denies CP, abd pain, N/V/D/C, F/C, coughing. Hospitalization: 73 year old male with past medical history of COPD, CHF with EF 25-30%, pulmonary HTN, HTN, HLD, BPH is admitted for shortness of breath 2/2 CHF exacerbation vs. COPD exacerbation. CXR 09/21: No interval acute cardiopulmonary disease appreciated. Cardiomegaly stable and pacemaker reiterated. A Pro-BNP was 3500. Patient had No leukocytosis and was afebrile. Patient was treated with Lasix 20 IV daily, Solumedrol 40 IV daily, Duonebs, as well as home meds continued. Patient was noted to be in new onset Afib. Home med of Metoprolol tartrate 12.5 BID was continued. Eliquis 5mg BID was started as per Dr. Gold and Dr. Cai, cardio. Dr. Rowland, pulmonology was also consulted who agree with treatment. On discharge, patient stated he felt much better and shortness of breath had resolved. Discharge instructions: Patient is stable for discharge as per Dr. Gold. You are to follow up with Dr. Gold and Dr. Cai within one week of discharge. You will be started on a new medication which you must take every day for your arrhythmia: Eliquis 5mg PO twice a day You will also receive a refill for Losartan 25mg PO daily. You have confirmed you do not need refills for your other medications. Continue taking your Aspirin daily. Continue taking your home medications as usual. Return to the emergency room for new or worsening symptoms. Discharge Exam - Head Exam Head Exam: ATRAUMATIC, NORMOCEPHALIC - Additional Findings Additional findings: - Constitutional Appears: Non-toxic, No Acute Distress - Head Exam Head Exam: ATRAUMATIC, NORMOCEPHALIC - Eye Exam Eye Exam: EOMI, Normal appearance, PERRL - ENT Exam ENT Exam: Mucous Membranes Moist - Neck Exam Neck Exam: Full ROM, Normal Inspection - Respiratory Exam Respiratory Exam: Clear to Ausculation Bilateral, NORMAL BREATHING PATTERN. absent: Rales, Rhonchi, Wheezes - Cardiovascular Exam Cardiovascular Exam: Irregular Rhythm, +S1, +S2 - GI/Abdominal Exam GI & Abdominal Exam: Soft, Normal Bowel Sounds. absent: Distended, Firm, Guarding, Tenderness - Extremities Exam Extremities Exam: Full ROM, Normal Capillary Refill, Normal Inspection. absent: Calf Tenderness, Pedal Edema - Neurological Exam Neurological Exam: Alert, Awake, CN II-XII Intact, Oriented x3 Additional comments: Moving all extremities equally. - Psychiatric Exam Psychiatric exam: Normal Affect, Normal Mood - Skin Skin Exam: Dry, Normal Color, Warm Discharge Plan - Discharge Medications Prescriptions: Apixaban [Eliquis] 5 mg PO Q12 #60 tab Losartan Potassium 25 mg PO DAILY #30 tablet - Follow Up Plan Condition: GOOD Disposition: HOME/ ROUTINE Instructions: Heart Healthy Diet, Heart Failure, Adult (DC), Shortness of Breath (Dyspnea) (DC), Exacerbation of COPD, Apixaban, Losartan, Atrial Fibrillation (DC) Additional Instructions: Patient is stable for discharge as per Dr. Gold. You are to follow up with Dr. Gold and Dr. Cai within one week of discharge. You will be started on a new medication which you must take every day for your arrhythmia: Eliquis 5mg PO twice a day You will also receive a refill for Losartan 25mg PO daily. You have confirmed you do not need refills for your other medications. Continue taking your Aspirin daily. Continue taking your home medications as usual. You may buy nicotine patches over the counter. You must stop smoking. Return to the emergency room for new or worsening symptoms. Referrals: Bandar Gold Jr., MD [Medical Doctor] -
[2018-09-23 12:26] VITALS: PULSE 96
== END 2018-09-23 12:55 | disposition home or self-care (01) ==
LOC: C.ER 11:49 → C.9E 15:12 → C.6T 16:04
PROVIDERS: ADMIT Internal Medicine; ATTEND Internal Medicine
DX: J44.1 Chronic obstructive pulmonary disease with (acute) exacerbation (principal); I48.91 Unspecified atrial fibrillation; I50.9 Heart failure, unspecified; R94.31 Abnormal electrocardiogram [ECG] [EKG]; E78.5 Hyperlipidemia, unspecified; I45.2 Bifascicular block; N40.0 Benign prostatic hyperplasia without lower urinary tract symptoms; F41.9 Anxiety disorder, unspecified; I13.0 Hypertensive heart and chronic kidney disease with heart failure and stage 1 through stage 4 chronic kidney disease, or unspecified chronic kidney disease; E11.22 Type 2 diabetes mellitus with diabetic chronic kidney disease; N18.9 Chronic kidney disease, unspecified; E78.00 Pure hypercholesterolemia, unspecified; Z95.0 Presence of cardiac pacemaker; F32.9 Major depressive disorder, single episode, unspecified; Z87.442 Personal history of urinary calculi; Z93.3 Colostomy status; F17.210 Nicotine dependence, cigarettes, uncomplicated; Z79.899 Other long term (current) drug therapy; Z79.82 Long term (current) use of aspirin; Z79.01 Long term (current) use of anticoagulants
CPT/HCPCS: 36415; 71045; 80053; 81001; 83880; 84484; 85025; 93005; 94150; 94640; 96374; 97116; 97161; 99285; G0378; G8978; G8979; J1940; J2920; J2930

== ENCOUNTER 2018-10-04 14:35 | Observation (INO) | payer MEDICARE, OTHER ==
[2018-10-04 14:35] VITALS: BMI 19.0
--- NOTE | 2018-10-04 15:15 | C.PDOC ---
Time Seen by Provider: 10/04/18 15:08 Chief Complaint (Nursing): Shortness Of Breath Past Medical History Vital Signs: Last Vital Signs Temp 98.4 F 10/04/18 14:53 Pulse 77 10/04/18 14:53 Resp 18 10/04/18 14:53 BP 158/84 H 10/04/18 14:53 Pulse Ox 96 10/04/18 14:53 Primary Care Provider: Bandar Gold Jr. - Medical History PMH: Back Problems, Benign Prostatic Hyperplasia, Cardia Arrhythmia, CHF, COPD, Depression, Diabetes, Diverticulitis, HTN, Hypercholesterolemia, Kidney Stones, Chronic Kidney Disease Surgical History: Hernia Repair, Pacemaker (2010) - [facility] Procedures BYPASS ILEUM TO TRANSVERSE COLON, OPEN APPROACH (05/08/15) BYPASS SIGMOID COLON TO CUTANEOUS, OPEN APPROACH (05/08/15) EXCISION OF RECTUM, OPEN APPROACH (03/19/16) EXTIRPATION OF MATTER FROM GI TRACT, OPEN APPROACH (03/19/16) INSERTION OF INFUSION DEV INTO R BRACH VEIN, PERC APPROACH (05/08/15) INTRODUCTION OF NUTRITIONAL INTO PERIPH VEIN, PERC APPROACH (05/08/15) IRRIGATION OF PERITONEAL CAVITY USING IRRIGAT, PERC APPROACH (05/08/15) REPAIR ABDOMINAL WALL, OPEN APPROACH (03/19/16) REPAIR ABDOMINAL WALL, STOMA, EXTERNAL APPROACH (02/13/16) RESECTION OF RIGHT LARGE INTESTINE, OPEN APPROACH (05/08/15) TRANSFUSE NONAUT RED BLOOD CELLS IN PERIPH VEIN, PERC (03/19/16) ULTRASONOGRAPHY OF RIGHT UPPER EXTREMITY VEINS, GUIDANCE (05/08/15) VACCINATION NEC (02/04/14) Family History: States: Unknown Family Hx - Social History Hx Tobacco Use: Yes Hx Alcohol Use: No Hx Substance Use: No - Immunization History Hx Tetanus Toxoid Vaccination: No Hx Influenza Vaccination: No Hx Pneumococcal Vaccination: No ED Course And Treatment O2 Sat by Pulse Oximetry: 96 Disposition - Disposition
--- NOTE | 2018-10-04 15:51 | C.PDOC ---
History Of Present Illness 73 y/o male presents to the ER for evaluation of shortness of breath with exertion which began in the morning. Patient denies having CP, fever,chills, nausea, and vomiting. Patient has past medical history of CHF, COPD, Atrial Fibrillation( on Eliqiuis), and hyperlipidemia. Time Seen by Provider: 10/04/18 15:08 Chief Complaint (Nursing): Shortness Of Breath History Per: Patient History/Exam Limitations: no limitations Onset/Duration Of Symptoms: Hrs Current Symptoms Are (Timing): Still Present Severity: Moderate Past Medical History Reviewed: Historical Data, Nursing Documentation, Vital Signs Vital Signs: Last Vital Signs Temp 98.4 F 10/04/18 14:53 Pulse 77 10/04/18 14:53 Resp 18 10/04/18 14:53 BP 158/84 H 10/04/18 14:53 Pulse Ox 96 10/04/18 14:53 Primary Care Provider: Bandar Pantoja Jr. - Medical History PMH: Back Problems, Benign Prostatic Hyperplasia, Cardia Arrhythmia, CHF, COPD, Depression, Diabetes, Diverticulitis, HTN, Hypercholesterolemia, Kidney Stones, Chronic Kidney Disease Surgical History: Hernia Repair, Pacemaker (2010) - [facility] Procedures BYPASS ILEUM TO TRANSVERSE COLON, OPEN APPROACH (05/08/15) BYPASS SIGMOID COLON TO CUTANEOUS, OPEN APPROACH (05/08/15) EXCISION OF RECTUM, OPEN APPROACH (03/19/16) EXTIRPATION OF MATTER FROM GI TRACT, OPEN APPROACH (03/19/16) INSERTION OF INFUSION DEV INTO R BRACH VEIN, PERC APPROACH (05/08/15) INTRODUCTION OF NUTRITIONAL INTO PERIPH VEIN, PERC APPROACH (05/08/15) IRRIGATION OF PERITONEAL CAVITY USING IRRIGAT, PERC APPROACH (05/08/15) REPAIR ABDOMINAL WALL, OPEN APPROACH (03/19/16) REPAIR ABDOMINAL WALL, STOMA, EXTERNAL APPROACH (02/13/16) RESECTION OF RIGHT LARGE INTESTINE, OPEN APPROACH (05/08/15) TRANSFUSE NONAUT RED BLOOD CELLS IN PERIPH VEIN, PERC (03/19/16) ULTRASONOGRAPHY OF RIGHT UPPER EXTREMITY VEINS, GUIDANCE (05/08/15) VACCINATION NEC (02/04/14) Family History: States: No Known Family Hx - Social History Hx Tobacco Use: Yes Hx Alcohol Use: No Hx Substance Use: No - Immunization History Hx Tetanus Toxoid Vaccination: No Hx Influenza Vaccination: No Hx Pneumococcal Vaccination: No Review Of Systems Except As Marked, All Systems Reviewed And Found Negative. Constitutional: Negative for: Fever, Chills Cardiovascular: Negative for: Chest Pain Respiratory: Positive for: Shortness of Breath Gastrointestinal: Negative for: Nausea, Vomiting, Abdominal Pain Physical Exam - Physical Exam Appears: Non-toxic, No Acute Distress Skin: Normal Color, Warm, Dry Head: Atraumatic, Normacephalic Eye(s): bilateral: Normal Inspection Nose: Normal Oral Mucosa: Moist Neck: Supple Chest: Symmetrical Cardiovascular: Rhythm Regular Respiratory: Rales, No Rhonchi, No Wheezing Gastrointestinal/Abdominal: Normal Exam, Soft, No Tenderness, No Guarding, No Rebound Neurological/Psych: Oriented x3, Normal Speech ED Course And Treatment - Laboratory Results Result Diagrams: 10/04/18 16:20 10/04/18 16:20 ECG: Interpreted By Me, Viewed By Me ECG Rhythm: Atrial Fibrillation, R BBB Interpretation Of ECG: PVC's, nonspecific ST/T wave changes Rate From EC O2 Sat by Pulse Oximetry: 96 (RA) Pulse Ox Interpretation: Normal Medical Decision Making Medical Decision Making: ro chf- pt already anticoag on eliquis. pe unlikely.Plan: --Labs --CXR ro chf- bnp elevated lasix given. accepted dr pantoja Disposition - Disposition Disposition: HOSPITALIZED Disposition Time: 17:00 Condition: STABLE Forms: [facility] (Swazi) - Clinical Impression Clinical Impression: CHF (congestive heart failure) - Scribe Statement The provider has reviewed the documentation as recorded by the Scribe Damion Butcher Provider Attestation: All medical record entries made by the Scribe were at my direction and personally dictated by me. I have reviewed the chart and agree that the record accurately reflects my personal performance of the history, physical exam, [facility] decision making, and the department course for this patient. I have also personally directed, reviewed, and agree with the discharge instructions and disposition. Decision To Admit - Pt Status Changed To: Hospital Disposition Of: Observation - . Bed Request Type: Telemetry Admitting Physician: Bandar Pantoja Jr. Patient Diagnosis: CHF (congestive heart failure)
--- NOTE | 2018-10-04 15:55 | RAD ---
Date of service: 10/04/2018 HISTORY: Chest pain COMPARISON: 09/21/2018. TECHNIQUE: Chest PA and lateral FINDINGS: LINES AND TUBES: None. LUNG AND PLEURA: The lungs are hyperinflated and there is peribronchial thickening with chronic changes in both lungs. No pleural effusion or pneumothorax. HEART AND MEDIASTINUM: Mild cardiomegaly. There is stable position of left-sided dual lead permanent pacing device. There are aortic atherosclerotic calcifications present. The hilar and mediastinal contours are within normal limits. SKELETAL STRUCTURES: The bony structures are within normal limits for the patient's age. There is severe dextroscoliosis in the thoracic spine. VISUALIZED UPPER ABDOMEN: Normal. OTHER FINDINGS: None. IMPRESSION: No active pulmonary disease. COPD.
[2018-10-04 16:24] LABS: BASO % 0.5 % (0.0-2.0); EOS # 0.1 K/uL (0.0-0.7); EOS % 1.2 % (0.0-4.0); HEMOGLOBIN 13.8 g/dL (12.0-18.0); LYMPH # 1.6 K/uL (1.0-4.3); LYMPH % 18.5 % (20.0-40.0); MEAN CELL VOLUME 102.3 fL (80.0-94.0); MEAN CORPUSCULAR HGB CONC 33.2 g/dL (33.0-37.0); MEAN PLATELET VOLUME 8.4 fL (7.2-11.7); MONO # 0.7 K/uL (0.0-0.8); MONO % 8.2 % (0.0-10.0); NEUT # 6.1 K/uL (1.8-7.0); NEUT % 71.6 % (50.0-75.0); RBC 4.05 Mil/uL (4.40-5.90); RED CELL DISTRIBUTION WIDTH 14.2 % (11.5-14.5); WHITE BLOOD COUNT 8.6 K/uL (4.8-10.8)
[2018-10-04 16:35] LABS: INR 1.2; PARTIAL THROMBOPLASTIN TIME 37.2 SECONDS (21-34)
[2018-10-04 16:48] LABS: ALB/GLOB RATIO 1.3 (1.0-2.1); ALBUMIN 3.6 g/dL (3.5-5.0); ALT/SGPT 40 U/L (21-72); AST/SGOT 34 U/L (17-59); BLOOD UREA NITROGEN 26 mg/dL (9-20); CALCIUM 8.6 mg/dl (8.6-10.4); GFR NON-AFRICAN AMERICAN 54
[2018-10-04 16:51] LABS: B-TYPE NATRIURETIC PEPTIDE 6000 pg/mL (0-900)
--- NOTE | 2018-10-04 17:06 | CP.PCM.HP ---
History of Present Illness - History of Present Illness History of Present Illness: PGY-1 History and Physical for Dr. Gold Patient is a 73 year old male with PMHx Afib (on Eliquis), COPD, CHF with EF 25- 30%, HTN, HTN, HLD, BPH who presents complaining of shortness of breath. Patient has had multiple hospitalizations here in the past for similar complaints, was recently hospitalized overnight in September for COPD/CHF e xacerbation. Pt states that he awoke at 3 am this morning with SOB, palpitations and lightheadedness. This episode was self-limited, but he endorses SOB and dyspnea on exertion after walking approximately 20 feet. Denies fever, chills, chest pain, abdominal pain, n/v/d, hematochezia, headache, loc, visual changes, leg swelling, recent travel. Pt reports he is compliant with all of his medications. Currently, he denies any complaints. Pt saw Dr. Cai on Wednesday, and his metoprolol was decreased to 12.5 mg PO daily. Pt was scheduled to have holter monitor placed tomorrow with Dr. Cai. EMR reviewed PMH: Afib, CHF, COPD, HTN, HTN, HLD, diverticulosis PSH: AICD/PM, colostomy, colostomy reversal, herniorraphy Meds: As per MAR Allx NKDA SHx: >30 pack year history. occasional EtOH use. PMD: Dr. Gold Cardio: Dr. Cai Pulm: Dr. Rowland Present on Admission - Present on Admission Any Indicators Present on Admission: No Review of Systems - Review of Systems All systems: reviewed and no additional remarkable complaints except (as per HPI) Past Patient History - Infectious Disease Hx of Infectious Diseases: None - Tetanus Immunizations Tetanus Immunization: Unknown - Past Medical History & Family History Past Medical History?: Yes - Past Social History Smoking Status: Light Smoker < 10 Cigarettes Daily - CARDIAC Hx Cardia Arrhythmia: Yes Hx Congestive Heart Failure: Yes Hx Hypercholesterolemia: Yes Hx Hypertension: Yes Hx Pacemaker: Yes (2010) - PULMONARY Hx Chronic Obstructive Pulmonary Disease (COPD): Yes - RENAL Hx Chronic Kidney Disease: Yes Hx Kidney Stones: Yes - ENDOCRINE/METABOLIC Hx Diabetes Mellitus Type 2: Yes - MUSCULOSKELETAL/RHEUMATOLOGICAL Hx Falls: No - GASTROINTESTINAL Hx Diverticulitis: Yes - GENITOURINARY/GYNECOLOGICAL Hx Genitourinary Disorders: Yes Hx Prostate Problems: Yes (BPH) - PSYCHIATRIC Hx Depression: Yes Hx Substance Use: No - SURGICAL HISTORY Hx Surgeries: Yes Other/Comment: CYSTOSCOPY STENT INSERTION stent removal lithotripsy. prostate surgery. hernia repair. pacemaker insertion - ANESTHESIA Hx Anesthesia: Yes Hx Anesthesia Reactions: No Hx Malignant Hyperthermia: No Meds Allergies/Adverse Reactions: Allergies Allergy/AdvReac Type Severity Reaction Status Date / Time No Known Allergies Allergy Verified 10/04/18 14:51 Physical Exam - Constitutional Appears: Non-toxic, No Acute Distress - Head Exam Head Exam: ATRAUMATIC, NORMAL INSPECTION - Eye Exam Eye Exam: EOMI, Normal appearance - ENT Exam ENT Exam: Mucous Membranes Moist - Respiratory Exam Respiratory Exam: Decreased Breath Sounds, Clear to Auscultation Bilateral. absent: Rales, Rhonchi, Wheezes, Respiratory Distress, Stridor - Cardiovascular Exam Cardiovascular Exam: Irregular Rhythm, +S1, +S2. absent: Tachycardia Additional comments: (+) left sided AICD - GI/Abdominal Exam GI & Abdominal Exam: Normal Bowel Sounds, Soft. absent: Distended, Firm, Guarding, Rebound, Tenderness - Extremities Exam Extremities exam: Positive for: normal capillary refill, normal inspection, pedal pulses present. Negative for: calf tenderness, pedal edema - Back Exam Back exam: NORMAL INSPECTION. absent: CVA tenderness (L), CVA tenderness (R) - Neurological Exam Neurological exam: Alert, Oriented x3 - Psychiatric Exam Psychiatric exam: Normal Affect, Normal Mood - Skin Skin Exam: Dry, Normal Color, Warm Results - Vital Signs Recent Vital Signs: Last Vital Signs Temp 98.4 F 10/04/18 14:53 Pulse 77 10/04/18 14:53 Resp 20 10/04/18 15:25 BP 158/84 H 10/04/18 14:53 Pulse Ox 96 10/04/18 16:55 - Labs Result Diagrams: 10/04/18 16:20 10/04/18 16:20 Labs: Laboratory Results - last 24 hr 10/04/18 10/04/18 10/04/18 16:20 16:20 16:20 WBC 8.6 RBC 4.05 L Hgb 13.8 Hct 41.4 MCV 102.3 H MCH 34.0 H MCHC 33.2 RDW 14.2 Plt Count 188 MPV 8.4 Neut % (Auto) 71.6 Lymph % (Auto) 18.5 L Garvin % (Auto) 8.2 Eos % (Auto) 1.2 Baso % (Auto) 0.5 Neut # (Auto) 6.1 Lymph # (Auto) 1.6 Garvin # (Auto) 0.7 Eos # (Auto) 0.1 Baso # (Auto) 0.0 PT 13.0 H INR 1.2 APTT 37.2 H Sodium 140 Potassium 3.4 L Chloride 105 Carbon Dioxide 26 Anion Gap 12 BUN 26 H Creatinine 1.3 Est GFR ( Amer) > 60 Est GFR (Non-Af Amer) 54 Random Glucose 78 D Calcium 8.6 Total Bilirubin 0.6 AST 34 ALT 40 Alkaline Phosphatase 76 Troponin I 0.0330 NT-Pro-B Natriuret Pep 6000 H Total Protein 6.5 Albumin 3.6 Globulin 2.8 Albumin/Globulin Ratio 1.3 Assessment & Plan - Assessment and Plan (Free Text) Assessment: 73 year old male with past medical history of Afib, COPD, CHF with EF 25-30% (AICD/PM), pulmonary HTN, HTN, HLD, BPH is admitted for shortness of breath, lightheadedness and palpitations. Plan: Dyspnea, lightheadedness palpitations Hx pulmonary nodules on CT 2017 Likely combination of COPD, HFrEF and Afib CXR show no active cardiopulm disease. COPD EKG shows Afib at 82, RBBB, PVCs, nonspecific STTW changes Troponin is 0.330, will trend q6h x2 Pro-BNP 6000 No leukocytosis, afebrile Tele monitor Monitor I/Os Lasix 40 IV BID (40 IV given in ED) F/u Chest CT without contrast HFrEF, with AICD/PM Echo 05/2018 shows EF 25-30%. Lasix 40 mg IV BID as above Continue Home Losartan 25 mg PO qd, ASA 81 mg PO daily, Metoprolol 12.5 mg PO daily COPD Duoneb q6 GUILHERME O2 via NC PRN Brovana INH BID Pulmicort INH BID Pulmonology, Dr. Rowland, consulted Afib Currently no RVR Pt with PM and AICD Continue home Eliquis 5 mg PO BID Cardiology, Dr. Cai, consulted. Hx HTN Continue home ARB, BB, as above Hx HLD Crestor 10 mg po hs Hx BPH Continue home Tamsulosin, Finasteride Hx Anxiety Continue home med xanax .25 mg po hs prn Ppx: GI: No indication for GI ppx VTE: Pt is on Eliquis 5 mg PO BID SCDs HHD Case discussed with Dr. Alla Elizabeth PGY1
[2018-10-04] MEDS ORDERED: Potassium Chloride 20 mEq ER Tab PO ONE ×2 (17:30→17:39)
[2018-10-04] MEDS ORDERED: Albuterol-Ipratrop 3 mg / 0.5 (3 ml) UD INH SCH (20:00)
[2018-10-04] MEDS ORDERED: Albuterol-Ipratrop 3 mg / 0.5 (3 ml) UD INH PRN (20:09)
--- NOTE | 2018-10-04 21:59 | CP.PCM.CON ---
History of Present Illness - History of Present Illness History of Present Illness: CC: Dyspnea 73 y/o male presents to the ER for evaluation of shortness of breath with exertion which began in the morning. Patient denies having CP, fever,chills, nausea, and vomiting. Patient has past medical history of CHF, COPD, Atrial Fibrillation( on Eliqiuis), and hyperlipidemia. Chief Complaint (Nursing): Shortness Of Breath History Per: Patient History/Exam Limitations: no limitations Onset/Duration Of Symptoms: Hrs Current Symptoms Are (Timing): Still Present Severity: Moderate Past Medical History Reviewed: Historical Data, Nursing Documentation, Vital Signs Vital Signs: Last Vital Signs Temp 98.4 F 10/04/18 14:53 Pulse 77 10/04/18 14:53 Resp 18 10/04/18 14:53 BP 158/84 H 10/04/18 14:53 Pulse Ox 96 10/04/18 14:53 Primary Care Provider: Bandar Gold Jr. - Medical History PMH: Back Problems, Benign Prostatic Hyperplasia, Cardia Arrhythmia, CHF, COPD, Depression, Diabetes, Diverticulitis, HTN, Hypercholesterolemia, Kidney Stones, Chronic Kidney Disease Surgical History: Hernia Repair, Pacemaker (2010) - [facility] Procedures BYPASS ILEUM TO TRANSVERSE COLON, OPEN APPROACH (05/08/15) BYPASS SIGMOID COLON TO CUTANEOUS, OPEN APPROACH (05/08/15) EXCISION OF RECTUM, OPEN APPROACH (03/19/16) EXTIRPATION OF MATTER FROM GI TRACT, OPEN APPROACH (03/19/16) INSERTION OF INFUSION DEV INTO R BRACH VEIN, PERC APPROACH (05/08/15) INTRODUCTION OF NUTRITIONAL INTO PERIPH VEIN, PERC APPROACH (05/08/15) IRRIGATION OF PERITONEAL CAVITY USING IRRIGAT, PERC APPROACH (05/08/15) REPAIR ABDOMINAL WALL, OPEN APPROACH (03/19/16) REPAIR ABDOMINAL WALL, STOMA, EXTERNAL APPROACH (02/13/16) RESECTION OF RIGHT LARGE INTESTINE, OPEN APPROACH (05/08/15) TRANSFUSE NONAUT RED BLOOD CELLS IN PERIPH VEIN, PERC (03/19/16) ULTRASONOGRAPHY OF RIGHT UPPER EXTREMITY VEINS, GUIDANCE (05/08/15) VACCINATION NEC (02/04/14) Family History: States: No Known Family Hx - Social History Hx Tobacco Use: Yes Hx Alcohol Use: No Hx Substance Use: No - Immunization History Hx Tetanus Toxoid Vaccination: No Hx Influenza Vaccination: No Hx Pneumococcal Vaccination: No Review Of Systems Except As Marked, All Systems Reviewed And Found Negative. Constitutional: Negative for: Fever, Chills Cardiovascular: Negative for: Chest Pain Respiratory: Positive for: Shortness of Breath Gastrointestinal: Negative for: Nausea, Vomiting, Abdominal Pain Physical Exam - Physical Exam Appears: Non-toxic, No Acute Distress Skin: Normal Color, Warm, Dry Head: Atraumatic, Normacephalic Eye(s): bilateral: Normal Inspection Nose: Normal Oral Mucosa: Moist Neck: Supple Chest: Symmetrical Cardiovascular: Rhythm Regular Respiratory: Rales, No Rhonchi, No Wheezing Gastrointestinal/Abdominal: Normal Exam, Soft, No Tenderness, No Guarding, No Rebound Neurological/Psych: Oriented x3, Normal Speech Past Patient History - Infectious Disease Hx of Infectious Diseases: None - Tetanus Immunizations Tetanus Immunization: Unknown - Past Medical History & Family History Past Medical History?: Yes - Past Social History Smoking Status: Light Smoker < 10 Cigarettes Daily - CARDIAC Hx Cardia Arrhythmia: Yes Hx Congestive Heart Failure: Yes Hx Hypercholesterolemia: Yes Hx Hypertension: Yes Hx Pacemaker: Yes (2010) - PULMONARY Hx Chronic Obstructive Pulmonary Disease (COPD): Yes - RENAL Hx Chronic Kidney Disease: Yes Hx Kidney Stones: Yes - ENDOCRINE/METABOLIC Hx Diabetes Mellitus Type 2: Yes - MUSCULOSKELETAL/RHEUMATOLOGICAL Hx Falls: No - GASTROINTESTINAL Hx Diverticulitis: Yes - GENITOURINARY/GYNECOLOGICAL Hx Genitourinary Disorders: Yes Hx Prostate Problems: Yes (BPH) - PSYCHIATRIC Hx Depression: Yes Hx Substance Use: No - SURGICAL HISTORY Hx Surgeries: Yes Other/Comment: CYSTOSCOPY STENT INSERTION stent removal lithotripsy. prostate surgery. hernia repair. pacemaker insertion - ANESTHESIA Hx Anesthesia: Yes Hx Anesthesia Reactions: No Hx Malignant Hyperthermia: No Meds Allergies/Adverse Reactions: Allergies Allergy/AdvReac Type Severity Reaction Status Date / Time No Known Allergies Allergy Verified 10/04/18 14:51 - Medications Medications: Current Medications Albuterol/Ipratropium (Duoneb 3 Mg/0.5 Mg (3 Ml) Ud) 3 ml INH RQ6 PRN PRN Reason: Shortness of Breath Alprazolam (Xanax) 0.25 mg PO HS PRN PRN Reason: Anxiety Stop: 10/11/18 19:30 Apixaban (Eliquis) 5 mg PO Q12 [facility] Last Admin: 05/28/19 21:56 Dose: 5 mg Arformoterol Tartrate (Brovana) 15 mcg INH RQ12@1000,2200 [facility] Aspirin (Ecotrin) 81 mg PO DAILY [facility] Budesonide (Pulmicort Respules) 0.25 mg INH RQ12 [facility] Finasteride (Proscar) 5 mg PO DAILY [facility] Furosemide (Lasix) 40 mg IVP BID [facility] Losartan Potassium (Cozaar) 25 mg PO DAILY [facility] Metoprolol Tartrate (Lopressor) 12.5 mg PO DAILY [facility] Rosuvastatin Calcium (Crestor) 10 mg PO HS [facility] Last Admin: 10/04/18 21:56 Dose: 10 mg Tamsulosin HCl (Flomax) 0.4 mg PO DAILY [facility] Results - Vital Signs Recent Vital Signs: Last Vital Signs Temp 98.3 F 10/04/18 20:30 Pulse 87 10/04/18 20:30 Resp 20 10/04/18 20:30 BP 128/76 10/04/18 20:30 Pulse Ox 95 10/04/18 20:30 - Labs Result Diagrams: 10/04/18 16:20 10/04/18 16:20 Labs: Laboratory Results - last 24 hr 10/04/18 10/04/18 10/04/18 16:20 16:20 16:20 WBC 8.6 RBC 4.05 L Hgb 13.8 Hct 41.4 MCV 102.3 H MCH 34.0 H MCHC 33.2 RDW 14.2 Plt Count 188 MPV 8.4 Neut % (Auto) 71.6 Lymph % (Auto) 18.5 L [place] % (Auto) 8.2 Eos % (Auto) 1.2 Baso % (Auto) 0.5 Neut # (Auto) 6.1 Lymph # (Auto) 1.6 [place] # (Auto) 0.7 Eos # (Auto) 0.1 Baso # (Auto) 0.0 PT 13.0 H INR 1.2 APTT 37.2 H Sodium 140 Potassium 3.4 L Chloride 105 Carbon Dioxide 26 Anion Gap 12 BUN 26 H Creatinine 1.3 Est GFR ( Amer) > 60 Est GFR (Non-Af Amer) 54 Random Glucose 78 D Calcium 8.6 Total Bilirubin 0.6 AST 34 ALT 40 Alkaline Phosphatase 76 Troponin I 0.0330 NT-Pro-B Natriuret Pep 6000 H Total Protein 6.5 Albumin 3.6 Globulin 2.8 Albumin/Globulin Ratio 1.3 Assessment & Plan - Assessment and Plan (Free Text) Assessment: 73 year old male with past medical history of Afib, COPD, CHF with EF 25-30% (AICD/PM), pulmonary HTN, HTN, HLD, BPH is admitted for shortness of breath, lightheadedness and palpitations. Plan: Dyspnea, lightheadedness palpitations Hx pulmonary nodules on CT 2017 Likely combination of COPD, HFrEF and Afib CXR show no active cardiopulm disease. COPD EKG shows Afib at 82, RBBB, PVCs, nonspecific STTW changes Troponin is 0.330, will trend q6h x2 Pro-BNP 6000 No leukocytosis, afebrile Tele monitor Monitor I/Os Lasix 40 IV BID (40 IV given in ED) F/u Chest CT without contrast HFrEF, with AICD/PM Echo 05/2018 shows EF 25-30%. Lasix 40 mg IV BID as above Continue Home Losartan 25 mg PO qd, ASA 81 mg PO daily, Metoprolol 12.5 mg PO daily COPD Duoneb q6 [facility] O2 via NC PRN Brovana INH BID Pulmicort INH BID Pulmonology, Dr. Rowland, consulted Afib Currently no RVR Pt with PM and AICD Continue home Eliquis 5 mg PO BID Hx HTN Continue home ARB, BB, as above Hx HLD Crestor 10 mg po hs Hx BPH Continue home Tamsulosin, Finasteride Hx Anxiety Continue home med xanax .25 mg po hs prn Ppx: GI: No indication for GI ppx VTE: Pt is on Eliquis 5 mg PO BID SCDs [facility]HD
[2018-10-04 22:34] LABS: CK-MB 2.56 ng/mL (0.0-3.38); TROPONIN I 0.038 ng/mL (0.00-0.120)
[2018-10-05 05:06] LABS: BASO # 0.1 K/uL (0.0-0.2); BASO % 0.5 % (0.0-2.0); EOS # 0.2 K/uL (0.0-0.7); EOS % 1.7 % (0.0-4.0); HEMOGLOBIN 14.6 g/dL (12.0-18.0); LYMPH # 2.1 K/uL (1.0-4.3); LYMPH % 20.2 % (20.0-40.0); MEAN CELL VOLUME 100.6 fL (80.0-94.0); MEAN CORPUSCULAR HEMOGLOBIN 33.8 pg (27.0-31.0); MEAN CORPUSCULAR HGB CONC 33.6 g/dL (33.0-37.0); MEAN PLATELET VOLUME 8.2 fL (7.2-11.7); MONO # 0.9 K/uL (0.0-0.8); MONO % 8.8 % (0.0-10.0); NEUT # 7.1 K/uL (1.8-7.0); NEUT % 68.8 % (50.0-75.0); RBC 4.31 Mil/uL (4.40-5.90); WHITE BLOOD COUNT 10.3 K/uL (4.8-10.8)
[2018-10-05 05:33] LABS: ALB/GLOB RATIO 1.2 (1.0-2.1); ALBUMIN 3.7 g/dL (3.5-5.0); CALCIUM 8.8 mg/dl (8.6-10.4); CK-MB 2.31 ng/mL (0.0-3.38); TROPONIN I 0.038 ng/mL (0.00-0.120)
--- NOTE | 2018-10-05 07:00 | CP.PCM.PN ---
Subjective - Date & Time of Evaluation Date of Evaluation: 10/05/18 Time of Evaluation: 07:00 - Subjective Subjective: Resident Progress Note for Dr. Gold Patient examined at bedside. No acute events overnight. Patient reports im provement in shortness of breath. Denies fevers, chills, cough, nausea, vomiting, abdominal pain, diarrhea, dysuria. Objective - Vital Signs/Intake and Output Vital Signs (last 24 hours): Temp Pulse Resp BP Pulse Ox 98.0 F 90 20 128/79 96 10/04/18 23:16 10/05/18 06:03 10/04/18 23:16 10/04/18 23:16 10/04/18 23:16 Intake and Output: 10/05/18 10/05/18 06:59 18:59 Intake Total 360 Output Total 1500 Balance -1140 - Medications Medications: Current Medications Albuterol/Ipratropium (Duoneb 3 Mg/0.5 Mg (3 Ml) Ud) 3 ml INH RQ6 PRN PRN Reason: Shortness of Breath Alprazolam (Xanax) 0.25 mg PO HS PRN PRN Reason: Anxiety Stop: 10/11/18 19:30 Apixaban (Eliquis) 5 mg PO Q12 [facility] Last Admin: 10/04/18 21:56 Dose: 5 mg Arformoterol Tartrate (Brovana) 15 mcg INH RQ12@1000,2200 [facility] Aspirin (Ecotrin) 81 mg PO DAILY [facility] Budesonide (Pulmicort Respules) 0.25 mg INH RQ12 [facility] Finasteride (Proscar) 5 mg PO DAILY [facility] Furosemide (Lasix) 40 mg IVP BID [facility] Losartan Potassium (Cozaar) 25 mg PO DAILY [facility] Metoprolol Tartrate (Lopressor) 12.5 mg PO DAILY [facility] Rosuvastatin Calcium (Crestor) 10 mg PO HS [facility] Last Admin: 10/04/18 21:56 Dose: 10 mg Tamsulosin HCl (Flomax) 0.4 mg PO DAILY [facility] - Labs Labs: 10/05/18 04:57 10/05/18 04:57 PT 13.0 SECONDS (9.7-12.2) H 10/04/18 16:20 INR 1.2 10/04/18 16:20 APTT 37.2 SECONDS (21-34) H 10/04/18 16:20 - Constitutional Appears: Non-toxic, No Acute Distress - Head Exam Head Exam: ATRAUMATIC, NORMOCEPHALIC - Eye Exam Eye Exam: EOMI, Normal appearance - ENT Exam ENT Exam: Mucous Membranes Moist - Respiratory Exam Respiratory Exam: Clear to Auscultation Bilateral. absent: Rales, Rhonchi, Wheezes, Respiratory Distress, Stridor - Cardiovascular Exam Cardiovascular Exam: Irregular Rhythm, +S1, +S2. absent: Tachycardia Additional comments: (+) left sided AICD - GI/Abdominal Exam GI & Abdominal Exam: Normal Bowel Sounds, Soft. absent: Distended, Firm, Guarding, Rebound, Tenderness - Extremities Exam Extremities exam: Positive for: normal capillary refill, normal inspection, pedal pulses present. Negative for: calf tenderness, pedal edema - Neurological Exam Neurological exam: Alert, Oriented x3 - Psychiatric Exam Psychiatric exam: Normal Affect, Normal Mood - Skin Skin Exam: Dry, Normal Color, Warm Assessment and Plan - Assessment and Plan (Free Text) Assessment: Patient is a 73 year old male with past medical history of Afib, COPD, CHF with EF 25-30% (AICD/PM), pulmonary HTN, HTN, HLD, BPH is admitted for shortness of breath, lightheadedness and palpitations. Plan: Dyspnea, lightheadedness palpitations, acute Hx pulmonary nodules on CT 2017 Likely combination of COPD, HFrEF and Afib - CXR show no active disease, COPD - EKG shows Afib at 82, RBBB, PVCs, nonspecific STTW changes - Troponins neg x3 - Pro-BNP 6000 - No leukocytosis, afebrile - Monitor I/Os - Lasix 40 IV BID - CT chest shows emphysematous changes, subpleural nodular densities HFrEF, with AICD/PM, chronic - Echo 05/2018 shows EF 25-30%. - Lasix 40 mg IV BID - Continue home Losartan 25 mg PO qd, ASA 81 mg PO daily, - Metoprolol 12.5 mg PO daily increased to 25 mg daily and Entresto 1 tab PO BID added as per cardiology recs COPD, chronic - Duonebs q6 [facility] - O2 via [place] PRN - Brovana INH BID - Pulmicort INH BID - Pulmonology, Dr. Rowland, consulted Afib, chronic - Pt with PM and AICD - Continue home Eliquis 5 mg PO BID - Cardiology, Dr. Cai, consulted Hx HTN, chronic - Continue home ARB, BB, as above Hx HLD, chronic - Crestor 10 mg po hs Hx BPH, chronic - Continue home Tamsulosin, Finasteride Hx Anxiety, chronic - Continue home med Xanax .25 mg po hs prn PPX GI: No indication for GI ppx VTE: Pt is on Eliquis 5 mg PO BID SCDs Dispo: awaiting pulmonology recs, monitor for response to change in medication regimen Case reviewed with Dr. Alla Reid PGY-1
[2018-10-05] MEDS: Budesonide 0.25 mg/2 ml Inhal Susp UD INH SCH (08:08)
[2018-10-05] MEDS: Arformoterol 15 mcg/2 ml Inh Sol INH SCH (08:08)
--- NOTE | 2018-10-05 10:55 | CT ---
Date of service: 10/05/2018 PROCEDURE: CT Chest without contrast HISTORY: SOB, history of pulmonary nodules. COMPARISON: Comparison made with prior CT scan chest 01/20/2018. TECHNIQUE: Contiguous axial images were obtained through the chest without intravenous contrast enhancement. Sagittal and coronal reconstructions were performed. Radiation dose: Total exam DLP = 195.28 mGy-cm. This CT exam was performed using one or more of the following dose reduction techniques: Automated exposure control, adjustment of the mA and/or kV according to patient size, and/or use of iterative reconstruction technique. FINDINGS: LUNGS: Redemonstrated are centrilobular emphysematous changes upper lobe predominance with hyperinflation. Mild passive/dependent type atelectasis seen both posterior lower lung jiménez. There also linear scarring changes seen left lung base. Nodular appearing scarring right middle lobe region unchanged from prior study. The seen in the lateral and medial segments right middle lobe essentially unchanged prior study 3.9 mm nodule lateral aspect right upper lobe which is associate with some adjacent pleural thickening. Small subpleural nodular densities also noted in the left posterior upper lung field/junction.. There is also a small areas of linear scarring extending to the posterior pleural surface seen the left lower lobe. Minor biapical pleural thickening minimal adjacent parenchymal scarring MEDIASTINUM: Heart is enlarged. No significant pericardial effusion. Ascending thoracic aorta is mildly dilated measuring approximate 4.25 cm. Descending thoracic aorta measures approximately 3.15 cm. Mild aortic atherosclerotic calcification. Trachea midline patent with no large central lesions. There is a small hiatal hernia. PLEURA: No pleural fluid. No pneumothorax. BONES: Multilevel degenerative spondylosis with chronic appearing superior and inferior endplate deformities T10 segment. There is a moderate to fairly significant scoliotic deformity convex the right lower thoracic region convex to the left mid lumbar region. UPPER ABDOMEN: Small approximately 2.7 cm elliptical shaped cyst anterior cortex upper/midpole right kidney.. There is a rounded approximately 9.3 mm slightly rounded hyperdense exophytic structure arising from the posterior cortex of the mid to lower pole right kidney that may represent hyperdense cyst however follow-up renal ultrasound could confirm and exclude solid component.. Smaller exophytic cyst seen arising from the lateral cortex right kidney. There appears to be at least 2 tiny adjacent calcifications in the midpole region right kidney. Additionally, punctate calcifications also seen in the collecting system right kidney as well. Tiny calcification upper pole collecting system left kidney. No evidence of hydronephrosis. Cholecystectomy. OTHER FINDINGS: None. IMPRESSION: Centrilobular emphysematous changes with hyperinflation. Mild passive/dependent type atelectasis seen both posterior lower lung jiménez. There also linear scarring changes seen left lung base. Nodular appearing scarring again noted in the lateral and medial segments right middle lobe essentially unchanged prior study 3.9 mm nodule lateral aspect right upper lobe which is associate with some adjacent pleural thickening. Small subpleural nodular densities also noted in the left posterior upper lung field/junction.. There is also a small areas of linear scarring extending to the posterior pleural surface seen the left lower lobe.. Recommend follow-up CT scan in 6 months to assess stability. Minor biapical pleural thickening minimal adjacent parenchymal scarring. Small cystic foci seen right kidney 1 of which is somewhat hyperdense and could represent hyperdense cyst however follow-up renal ultrasound confirm. Bilateral nonobstructing renal calculi. Cholecystectomy.
[2018-10-05] MEDS: Oxycodone/Acetaminophen 5/325 mg Tab PO PRN ×2 (11:25→23:43)
--- NOTE | 2018-10-05 13:35 | CP.PCM.PN ---
<Kt Bentley - Last Filed: 10/05/18 13:33> Subjective - Date & Time of Evaluation Date of Evaluation: 10/05/18 Time of Evaluation: 11:15 - Subjective Subjective: PGY2 Cardiology Note for Dr. Cai Patient was seen and examined this morning at bedside. No acute events overnight. Patient is feeling an improvement in his breathing but still feels mildly SOB with exertion. He is otherwise feeling well with no complaints. Denies chest pain, palpitations, lightheadedness or dizziness. Objective - Vital Signs/Intake and Output Vital Signs (last 24 hours): Temp Pulse Resp BP Pulse Ox 98.0 F 78 20 120/78 96 10/04/18 23:16 10/05/18 11:38 10/04/18 23:16 10/05/18 09:27 10/04/18 23:16 Intake and Output: 10/05/18 10/05/18 06:59 18:59 Intake Total 360 Output Total 1500 Balance -1140 - Medications Medications: Current Medications Albuterol/Ipratropium (Duoneb 3 Mg/0.5 Mg (3 Ml) Ud) 3 ml INH RQ6 PRN PRN Reason: Shortness of Breath Alprazolam (Xanax) 0.25 mg PO HS PRN PRN Reason: Anxiety Stop: 10/11/18 19:30 Apixaban (Eliquis) 5 mg PO Q12 [facility] Last Admin: 10/05/18 09:26 Dose: 5 mg Arformoterol Tartrate (Brovana) 15 mcg INH RQ12@1000,2200 [facility] Aspirin (Ecotrin) 81 mg PO DAILY [facility] Last Admin: 10/05/18 09:26 Dose: Not Given Budesonide (Pulmicort Respules) 0.25 mg INH RQ12 [facility] Last Admin: 10/05/18 08:08 Dose: Not Given Finasteride (Proscar) 5 mg PO DAILY [facility] Last Admin: 10/05/18 09:26 Dose: 5 mg Furosemide (Lasix) 40 mg IVP BID [facility] Last Admin: 10/05/18 09:27 Dose: 40 mg Metoprolol Tartrate (Lopressor) 12.5 mg PO DAILY [facility] Last Admin: 10/05/18 09:26 Dose: 12.5 mg Oxycodone/Acetaminophen (Percocet 5/325 Mg Tab) 1 tab PO BID PRN PRN Reason: Pain, moderate (4-7) Stop: 10/08/18 10:41 Last Admin: 10/05/18 11:25 Dose: 1 tab Rosuvastatin Calcium (Crestor) 10 mg PO HS [facility] Last Admin: 10/04/18 21:56 Dose: 10 mg Sacubitril/Valsartan (Entresto 24 Mg-26 Mg) 1 tab PO BID [facility] Tamsulosin HCl (Flomax) 0.4 mg PO DAILY [facility] Last Admin: 10/05/18 09:26 Dose: 0.4 mg - Labs Labs: 10/05/18 04:57 10/05/18 04:57 PT 13.0 SECONDS (9.7-12.2) H 10/04/18 16:20 INR 1.2 10/04/18 16:20 APTT 37.2 SECONDS (21-34) H 10/04/18 16:20 - Constitutional Appears: Non-toxic, No Acute Distress - Head Exam Head Exam: ATRAUMATIC, NORMOCEPHALIC - Eye Exam Eye Exam: Normal appearance - ENT Exam ENT Exam: Mucous Membranes Moist - Respiratory Exam Respiratory Exam: Decreased Breath Sounds, NORMAL BREATHING PATTERN. absent: Accessory Muscle Use, Rhonchi, Wheezes, Respiratory Distress - Cardiovascular Exam Cardiovascular Exam: Irregular Rhythm, +S1, +S2 - GI/Abdominal Exam GI & Abdominal Exam: Soft. absent: Distended, Firm, Guarding, Rigid, Tenderness - Extremities Exam Extremities Exam: absent: Calf Tenderness, Pedal Edema - Neurological Exam Neurological Exam: Alert, Awake, Oriented x3 - Psychiatric Exam Psychiatric exam: Normal Affect, Normal Mood - Skin Skin Exam: Dry, Warm Assessment and Plan - Assessment and Plan (Free Text) Plan: Acute on Chronic HFrEF, s/p AICD/PM Afib Acute exacerbation of HFrEF is likely due to combination of HFrEF, Afib and COPD * upon discharge, patient will be instructed to follow up with Dr. Sean Edmonds at [facility] [place]. * Patient may need LVAD due to increasing frequency of HF exacerbations despite medication. CXR: no acute disease. EKG: Afib @82bpm, RBBB with PVCs and nonspecific STTW changes previous ECHO 05/2018: EF ~ 25-30% Trop negative x3 BNP 6,000 Monitor I's/O's Medications: * Discontinued Losartan * Started Entresto 24mg - 26mg, 1 tab PO BID * Increased Metoprolol 12.5mg daily to 25mg PO BID * Crestor 10mg PO HS (home med) * Aspirin 81mg PO daily (home med) * Eliquis 5mg PO q12h (home med) * Lasix 40mg IVP BID COPD Hx of Pulmonary Nodules Chest CT w/o 10/04/18: * Centrilobular emphysematous changes with hyperinflation. * Mild passive/dependent type atelectasis seen both posterior lower lung jiménez. There also linear scarring changes seen left lung base. Nodular appearing scarring again noted in the lateral and medial segments right middle lobe essentially unchanged prior study. * 3.9 mm nodule lateral aspect right upper lobe which is associate with some adjacent pleural thickening. Small subpleural nodular densities also noted in the left posterior upper lung field/junction.. There is also a small areas of linear scarring extending to the posterior pleural surface seen the left lower lobe.. Recommend follow-up CT scan in 6 months to assess stability. * Minor biapical pleural thickening minimal adjacent parenchymal scarring. * Small cystic foci seen right kidney 1 of which is somewhat hyperdense and could represent hyperdense cyst however follow-up renal ultrasound confirm. * Bilateral nonobstructing renal calculi. * Cholecystectomy. Management per Pulmonary/Primary Case discussed with Dr. Trell Bentley PGY2 <Giovanny Cai - Last Filed: 10/05/18 22:22> Objective - Vital Signs/Intake and Output Vital Signs (last 24 hours): Temp Pulse Resp BP Pulse Ox 97.9 F 80 18 115/60 97 10/05/18 15:50 10/05/18 16:30 10/05/18 15:50 10/05/18 17:42 10/05/18 20:00 Intake and Output: 10/05/18 10/06/18 18:59 06:59 Intake Total 350 Balance 350 - Medications Medications: Current Medications Albuterol/Ipratropium (Duoneb 3 Mg/0.5 Mg (3 Ml) Ud) 3 ml INH RQ6 PRN PRN Reason: Shortness of Breath Alprazolam (Xanax) 0.25 mg PO HS PRN PRN Reason: Anxiety Stop: 10/11/18 19:30 Apixaban (Eliquis) 5 mg PO Q12 [facility] Last Admin: 10/05/18 21:07 Dose: 5 mg Arformoterol Tartrate (Brovana) 15 mcg INH RQ12@1000,2200 [facility] Last Admin: 10/05/18 08:08 Dose: Not Given Aspirin (Ecotrin) 81 mg PO DAILY [facility] Last Admin: 10/05/18 09:26 Dose: Not Given Budesonide (Pulmicort Respules) 0.25 mg INH RQ12 [facility] Last Admin: 10/05/18 08:08 Dose: Not Given Finasteride (Proscar) 5 mg PO DAILY [facility] Last Admin: 10/05/18 09:26 Dose: 5 mg Furosemide (Lasix) 40 mg IVP BID [facility] Last Admin: 10/05/18 17:42 Dose: 40 mg Metoprolol Tartrate (Lopressor) 25 mg PO BID [facility] Last Admin: 10/05/18 17:42 Dose: 25 mg Oxycodone/Acetaminophen (Percocet 5/325 Mg Tab) 1 tab PO BID PRN PRN Reason: Pain, moderate (4-7) Stop: 10/08/18 10:41 Last Admin: 10/05/18 11:25 Dose: 1 tab Rosuvastatin Calcium (Crestor) 10 mg PO HS [facility] Last Admin: 10/05/18 21:07 Dose: 10 mg Sacubitril/Valsartan (Entresto 24 Mg-26 Mg) 1 tab PO BID [facility] Last Admin: 10/05/18 17:47 Dose: Not Given Tamsulosin HCl (Flomax) 0.4 mg PO DAILY [facility] Last Admin: 10/05/18 09:26 Dose: 0.4 mg - Labs Labs: 10/05/18 04:57 10/05/18 04:57 PT 13.0 SECONDS (9.7-12.2) H 10/04/18 16:20 INR 1.2 10/04/18 16:20 APTT 37.2 SECONDS (21-34) H 10/04/18 16:20 Assessment and Plan - Assessment and Plan (Free Text) Plan: Patient seen and evaluated personally by me. Plan of care d/w the medical communication specialist and as documented
--- NOTE | 2018-10-05 15:05 | CP.PCM.CON ---
History of Present Illness - History of Present Illness History of Present Illness: Reason for consultation: Shortness of breath 73-year-old male with history of COPD, atrial fibrillation, congestive heart failure with low ejection fraction, hypertension presented to emergency room complaining of shortness of breath. Patient was recently admitted in the hospital and treated for COPD/CHF exacerbation. Patient states that he woke up 3 AM in the morning with shortness of breath, palpitation and dizziness. Denies chest pain, denies fever chills, denies cough. PMH: Afib, CHF, COPD, HTN, HTN, HLD, diverticulosis PSH: AICD/PM, colostomy, colostomy reversal, herniorraphy Meds: As per JUL Allx NKDA SHx: >30 pack year history. occasional EtOH use. Review of Systems - Review of Systems All systems: reviewed and no additional remarkable complaints except (Shortness of breath) Past Patient History - Infectious Disease Hx of Infectious Diseases: None - Tetanus Immunizations Tetanus Immunization: Unknown - Past Medical History & Family History Past Medical History?: Yes - Past Social History Smoking Status: Light Smoker < 10 Cigarettes Daily - CARDIAC Hx Cardia Arrhythmia: Yes Hx Congestive Heart Failure: Yes Hx Hypercholesterolemia: Yes Hx Hypertension: Yes Hx Pacemaker: Yes (2010) - PULMONARY Hx Chronic Obstructive Pulmonary Disease (COPD): Yes - RENAL Hx Chronic Kidney Disease: Yes Hx Kidney Stones: Yes - ENDOCRINE/METABOLIC Hx Diabetes Mellitus Type 2: Yes - MUSCULOSKELETAL/RHEUMATOLOGICAL Hx Falls: No - GASTROINTESTINAL Hx Diverticulitis: Yes - GENITOURINARY/GYNECOLOGICAL Hx Genitourinary Disorders: Yes Hx Prostate Problems: Yes (BPH) - PSYCHIATRIC Hx Depression: Yes Hx Substance Use: No - SURGICAL HISTORY Hx Surgeries: Yes Other/Comment: CYSTOSCOPY STENT INSERTION stent removal lithotripsy. prostate surgery. hernia repair. pacemaker insertion - ANESTHESIA Hx Anesthesia: Yes Hx Anesthesia Reactions: No Hx Malignant Hyperthermia: No Meds Allergies/Adverse Reactions: Allergies Allergy/AdvReac Type Severity Reaction Status Date / Time No Known Allergies Allergy Verified 10/04/18 14:51 - Medications Medications: Current Medications Albuterol/Ipratropium (Duoneb 3 Mg/0.5 Mg (3 Ml) Ud) 3 ml INH RQ6 PRN PRN Reason: Shortness of Breath Alprazolam (Xanax) 0.25 mg PO HS PRN PRN Reason: Anxiety Stop: 10/11/18 19:30 Apixaban (Eliquis) 5 mg PO Q12 [facility] Last Admin: 10/05/18 09:26 Dose: 5 mg Arformoterol Tartrate (Brovana) 15 mcg INH RQ12@1000,2200 [facility] Last Admin: 10/05/18 08:08 Dose: Not Given Aspirin (Ecotrin) 81 mg PO DAILY [facility] Last Admin: 10/05/18 09:26 Dose: Not Given Budesonide (Pulmicort Respules) 0.25 mg INH RQ12 [facility] Last Admin: 10/05/18 08:08 Dose: Not Given Finasteride (Proscar) 5 mg PO DAILY [facility] Last Admin: 10/05/18 09:26 Dose: 5 mg Furosemide (Lasix) 40 mg IVP BID [facility] Last Admin: 10/05/18 09:27 Dose: 40 mg Metoprolol Tartrate (Lopressor) 25 mg PO BID [facility] Oxycodone/Acetaminophen (Percocet 5/325 Mg Tab) 1 tab PO BID PRN PRN Reason: Pain, moderate (4-7) Stop: 10/08/18 10:41 Last Admin: 10/05/18 11:25 Dose: 1 tab Rosuvastatin Calcium (Crestor) 10 mg PO HS [facility] Last Admin: 10/04/18 21:56 Dose: 10 mg Sacubitril/Valsartan (Entresto 24 Mg-26 Mg) 1 tab PO BID [facility] Tamsulosin HCl (Flomax) 0.4 mg PO DAILY [facility] Last Admin: 10/05/18 09:26 Dose: 0.4 mg Physical Exam - Head Exam Head Exam: ATRAUMATIC, NORMOCEPHALIC - Eye Exam Eye Exam: Normal appearance - ENT Exam ENT Exam: Mucous Membranes Moist - Neck Exam Neck exam: Positive for: Normal Inspection - Respiratory Exam Respiratory Exam: Clear to Auscultation Bilateral - Cardiovascular Exam Cardiovascular Exam: Irregular Rhythm - GI/Abdominal Exam GI & Abdominal Exam: Normal Bowel Sounds, Soft Results - Vital Signs Recent Vital Signs: Last Vital Signs Temp 98.0 F 10/04/18 23:16 Pulse 78 10/05/18 11:38 Resp 20 10/04/18 23:16 BP 120/78 10/05/18 09:27 Pulse Ox 96 10/04/18 23:16 - Labs Result Diagrams: 10/05/18 04:57 05/29/19 04:57 Labs: Laboratory Results - last 24 hr 10/04/18 10/04/18 10/04/18 16:20 16:20 16:20 WBC 8.6 RBC 4.05 L Hgb 13.8 Hct 41.4 MCV 102.3 H MCH 34.0 H MCHC 33.2 RDW 14.2 Plt Count 188 MPV 8.4 Neut % (Auto) 71.6 Lymph % (Auto) 18.5 L [place] % (Auto) 8.2 Eos % (Auto) 1.2 Baso % (Auto) 0.5 Neut # (Auto) 6.1 Lymph # (Auto) 1.6 [place] # (Auto) 0.7 Eos # (Auto) 0.1 Baso # (Auto) 0.0 PT 13.0 H INR 1.2 APTT 37.2 H Sodium 140 Potassium 3.4 L Chloride 105 Carbon Dioxide 26 Anion Gap 12 BUN 26 H Creatinine 1.3 Est GFR ( Amer) > 60 Est GFR (Non-Af Amer) 54 Random Glucose 78 D Calcium 8.6 Phosphorus Magnesium Total Bilirubin 0.6 AST 34 ALT 40 Alkaline Phosphatase 76 Total Creatine Kinase CK-MB (Mass) Troponin I 0.0330 NT-Pro-B Natriuret Pep 6000 H Total Protein 6.5 Albumin 3.6 Globulin 2.8 Albumin/Globulin Ratio 1.3 10/04/18 10/05/18 10/05/18 21:42 04:57 04:57 WBC 10.3 RBC 4.31 L Hgb 14.6 Hct 43.3 MCV 100.6 H MCH 33.8 H MCHC 33.6 RDW 14.0 Plt Count 185 MPV 8.2 Neut % (Auto) 68.8 Lymph % (Auto) 20.2 [place] % (Auto) 8.8 Eos % (Auto) 1.7 Baso % (Auto) 0.5 Neut # (Auto) 7.1 H Lymph # (Auto) 2.1 [place] # (Auto) 0.9 H Eos # (Auto) 0.2 Baso # (Auto) 0.1 PT INR APTT Sodium 139 Potassium 3.7 Chloride 105 Carbon Dioxide 25 Anion Gap 14 BUN 32 H Creatinine 1.5 Est GFR ( Amer) 55 Est GFR (Non-Af Amer) 46 Random Glucose 89 Calcium 8.8 Phosphorus 3.5 Magnesium 1.7 Total Bilirubin 0.7 AST 32 ALT 45 Alkaline Phosphatase 78 Total Creatine Kinase 34 L 25 L CK-MB (Mass) 2.56 2.31 Troponin I 0.0380 0.0380 NT-Pro-B Natriuret Pep Total Protein 6.6 Albumin 3.7 Globulin 3.0 Albumin/Globulin Ratio 1.2 Assessment & Plan (1) CHF (congestive heart failure) Status: Acute Comment: Shortness of breath secondary to CHF. Continue with diuretics. Cardiology work-up. Continue with Brovana and budesonide (2) COPD (chronic obstructive pulmonary disease) Status: Acute (3) AICD (automatic cardioverter/defibrillator) present Status: Acute
[2018-10-05] MEDS: Sacubitril/Valsartan 24-26mg Tab PO SCH (17:47)
[2018-10-06 00:59] VITALS: RESP 20
[2018-10-06 07:20] LABS: BASO % 0.3 % (0.0-2.0); EOS # 0.2 K/uL (0.0-0.7); HEMOGLOBIN 14.4 g/dL (12.0-18.0); LYMPH # 2.6 K/uL (1.0-4.3); MEAN CELL VOLUME 100.5 fL (80.0-94.0); MEAN CORPUSCULAR HEMOGLOBIN 34.3 pg (27.0-31.0); MEAN CORPUSCULAR HGB CONC 34.1 g/dL (33.0-37.0); MEAN PLATELET VOLUME 8.4 fL (7.2-11.7); MONO % 10.2 % (0.0-10.0); NEUT # 5.6 K/uL (1.8-7.0); NEUT % 59.5 % (50.0-75.0); RBC 4.2 Mil/uL (4.40-5.90); RED CELL DISTRIBUTION WIDTH 14.1 % (11.5-14.5); WHITE BLOOD COUNT 9.4 K/uL (4.8-10.8)
[2018-10-06 07:40] LABS: ALB/GLOB RATIO 1.5 (1.0-2.1); ALBUMIN 3.8 g/dL (3.5-5.0); CALCIUM 8.5 mg/dl (8.6-10.4)
[2018-10-06 08:24] VITALS: PULSE 74
[2018-10-06 08:38] VITALS: TEMP 97.5; O2SAT 96
[2018-10-06] MEDS: Budesonide 0.25 mg/2 ml Inhal Susp UD INH SCH (09:14)
[2018-10-06] MEDS: Arformoterol 15 mcg/2 ml Inh Sol INH SCH (09:14)
[2018-10-06] MEDS: Sacubitril/Valsartan 24-26mg Tab PO SCH (09:38)
[2018-10-06 09:43] VITALS: BP 132/72
--- NOTE | 2018-10-06 10:40 | CP.PCM.DIS ---
Provider - Provider Date of Admission: 10/04/18 16:56 Attending physician: Bandar Gold Jr, MD Consults: 10/04/18 19:09 Cardiology Consult Routine Comment: Consulting Provider: Giovanny Cai Consulting Physician: Giovanny Cai Reason for Consult: afib, chf, c/o sob/lightheadedness Pulmonology Consult Routine Comment: Consulting Provider: Ham Rowland Consulting Physician: Ham Rowland Reason for Consult: hx chf, copd, pulm nodule c/o sob/lightheadedness Diagnosis - Discharge Diagnosis (1) CHF exacerbation Status: Acute (2) COPD (chronic obstructive pulmonary disease) Status: Chronic (3) Atrial fibrillation Status: Acute Hospital Course - Lab Results Lab Results: Most Recent Lab Values WBC 9.4 K/uL (4.8-10.8) 10/06/18 07:03 RBC 4.20 Mil/uL (4.40-5.90) L 10/06/18 07:03 Hgb 14.4 g/dL (12.0-18.0) 10/06/18 07:03 Hct 42.2 % (35.0-51.0) 10/06/18 07:03 MCV 100.5 fL (80.0-94.0) H 10/06/18 07:03 MCH 34.3 pg (27.0-31.0) H 10/06/18 07:03 MCHC 34.1 g/dL (33.0-37.0) 10/06/18 07:03 RDW 14.1 % (11.5-14.5) 10/06/18 07:03 Plt Count 217 K/uL (130-400) 10/06/18 07:03 MPV 8.4 fL (7.2-11.7) 10/06/18 07:03 Neut % (Auto) 59.5 % (50.0-75.0) 10/06/18 07:03 Lymph % (Auto) 28.0 % (20.0-40.0) 10/06/18 07:03 [place] % (Auto) 10.2 % (0.0-10.0) H 10/06/18 07:03 Eos % (Auto) 2.0 % (0.0-4.0) 10/06/18 07:03 Baso % (Auto) 0.3 % (0.0-2.0) 10/06/18 07:03 Neut # (Auto) 5.6 K/uL (1.8-7.0) 10/06/18 07:03 Lymph # (Auto) 2.6 K/uL (1.0-4.3) 10/06/18 07:03 [place] # (Auto) 1.0 K/uL (0.0-0.8) H 10/06/18 07:03 Eos # (Auto) 0.2 K/uL (0.0-0.7) 10/06/18 07:03 Baso # (Auto) 0.0 K/uL (0.0-0.2) 10/06/18 07:03 PT 13.0 SECONDS (9.7-12.2) H 10/04/18 16:20 INR 1.2 10/04/18 16:20 APTT 37.2 SECONDS (21-34) H 10/04/18 16:20 Sodium 139 mmol/L (132-148) 10/06/18 07:03 Potassium 3.9 mmol/L (3.6-5.2) 10/06/18 07:03 Chloride 102 mmol/L (98-107) 10/06/18 07:03 Carbon Dioxide 27 mmol/L (22-30) 10/06/18 07:03 Anion Gap 14 (10-20) 10/06/18 07:03 BUN 48 mg/dL (9-20) H 10/06/18 07:03 Creatinine 1.7 mg/dL (0.8-1.5) H 10/06/18 07:03 Est GFR ( Amer) 48 10/06/18 07:03 Est GFR (Non-Af Amer) 40 10/06/18 07:03 Random Glucose 85 mg/dL (75-110) 10/06/18 07:03 Calcium 8.5 mg/dl (8.6-10.4) L 10/06/18 07:03 Phosphorus 4.4 mg/dL (2.5-4.5) 10/06/18 07:03 Magnesium 1.8 mg/dL (1.6-2.3) 10/06/18 07:03 Total Bilirubin 0.7 mg/dL (0.2-1.3) 10/06/18 07:03 AST 28 U/L (17-59) 10/06/18 07:03 ALT 32 U/L (21-72) 10/06/18 07:03 Alkaline Phosphatase 75 U/L (38-126) 10/06/18 07:03 Total Creatine Kinase 25 U/L (55-170) L 10/05/18 04:57 CK-MB (Mass) 2.31 ng/mL (0.0-3.38) 10/05/18 04:57 Troponin I 0.0380 ng/mL (0.00-0.120) 10/05/18 04:57 NT-Pro-B Natriuret Pep 6000 pg/mL (0-900) H 10/04/18 16:20 Total Protein 6.3 g/dL (6.3-8.3) 10/06/18 07:03 Albumin 3.8 g/dL (3.5-5.0) 10/06/18 07:03 Globulin 2.6 gm/dL (2.2-3.9) 10/06/18 07:03 Albumin/Globulin Ratio 1.5 (1.0-2.1) 10/06/18 07:03 - Hospital Course Hospital Course: On admission: Patient is a 73 year old male with PMHx Afib (on Eliquis), COPD, CHF with EF 25- 30%, HTN, HTN, HLD, BPH who presents complaining of shortness of breath. Patient has had multiple hospitalizations here in the past for similar complaints, was recently hospitalized overnight in September for COPD/CHF exacerbation. Pt states that he awoke at 3 am this morning with SOB, palpitations and lightheadedness. This episode was self-limited, but he endorses SOB and dyspnea on exertion after walking approximately 20 feet. Denies fever, chills, chest pain, abdominal pain, n/v/d, hematochezia, headache, loc, visual c hanges, leg swelling, recent travel. Pt reports he is compliant with all of his medications. Currently, he denies any complaints. Hospitalization: Patient is a 73 year old male with past medical history of Afib, COPD, CHF with EF 25-30% (AICD/PM), pulmonary HTN, HTN, HLD, BPH is admitted for shortness of breath, lightheadedness and palpitations. Dyspnea, lightheadedness palpitations, acute Hx pulmonary nodules on CT 2017 Likely combination of COPD, HFrEF and Afib - CXR show no active disease, COPD - EKG shows Afib at 82, RBBB, PVCs, nonspecific STTW changes - Troponins neg x3 - Pro-BNP 6000 - No leukocytosis, afebrile - Monitor I/Os - Lasix 40 IV BID - CT chest shows emphysematous changes, subpleural nodular densities HFrEF, with AICD/PM, chronic - Echo 05/2018 shows EF 25-30%. - Lasix 40 mg IV BID - Continue home Losartan 25 mg PO qd, ASA 81 mg PO daily, - Metoprolol 12.5 mg PO daily increased to 25 mg daily and Entresto 1 tab PO BID added as per cardiology recs COPD, chronic - Duonebs q6 GUILHERME - O2 via NC PRN - Brovana INH BID - Pulmicort INH BID - Pulmonology, Dr. Rowland, consulted Afib, chronic - Pt with PM and AICD - Continue home Eliquis 5 mg PO BID - Cardiology, Dr. Cai, consulted Hx HTN, chronic - Continue home ARB, BB, as above Hx HLD, chronic - Crestor 10 mg po hs Hx BPH, chronic - Continue home Tamsulosin, Finasteride Hx Anxiety, chronic - Continue home med Xanax .25 mg po hs prn PPX GI: No indication for GI ppx VTE: Pt is on Eliquis 5 mg PO BID Discharge: Follow up with your primary medical doctor within one week. Follow up with Dr. Cai within one month. You will receive the following Prescriptions: -Metoprolol Tartrate 25mg twice a day (this was increased from 12.5 twice a day) -Entresto 24-26mg one tablet twice a day -Lasix 40mg PO daily Stop taking Losartan, as per Dr. Cai. You have confirmed that you have enough of your home medications at home. Also follow up with Dr. Sean Edmonds at the heart failure center Call to make an appointment Return to ED if symptoms return or worsen Discharge Exam - Head Exam Head Exam: ATRAUMATIC, NORMOCEPHALIC - Eye Exam Eye Exam: EOMI, PERRL - ENT Exam ENT Exam: Mucous Membranes Moist - Neck Exam Neck exam: Full Rom, Normal Inspection - Respiratory Exam Respiratory Exam: Decreased Breath Sounds, Clear to PA & Lateral, NORMAL BREATHING PATTERN. absent: Rales, Rhonchi, Wheezes - Cardiovascular Exam Cardiovascular Exam: Irregular Rhythm, +S1, +S2 - GI/Abdominal Exam GI & Abdominal Exam: Normal Bowel Sounds, Soft. absent: Distended, Firm, Guarding, Rebound, Rigid, Tenderness - Extremities Exam Extremities exam: full ROM - Neurological Exam Neurological exam: Alert, CN II-XII Intact, Oriented x3 - Psychiatric Exam Psychiatric exam: Normal Affect, Normal Mood - Skin Skin Exam: Dry, Normal Color, Warm Discharge Plan - Discharge Medications Prescriptions: Furosemide [Lasix] 40 mg PO DAILY #30 tablet Metoprolol Tartrate [Lopressor] 25 mg PO BID #60 tab Sacubitril/Valsartan [Entresto 24 mg-26 mg] 1 tab PO BID #60 tablet - Follow Up Plan Condition: STABLE Disposition: HOME/ ROUTINE Instructions: Heart Healthy Diet, Heart Failure, Adult (DC), Exacerbation of COPD (DC), Furosemide, Metoprolol, Sacubitril and Valsartan, Heart Failure (DC), Heart Failure (GEN), Pacemaker (DC), Pacemaker (GEN), Pulmonary Edema (DC), Pulmonary Edema (GEN), Ascites (DC), Ascites (GEN) Additional Instructions: Follow up with your primary medical doctor within one week. Follow up with Dr. Cai within one month. You will receive the following Prescriptions: -Metoprolol Tartrate 25mg twice a day (this was increased from 12.5 twice a day) -Entresto 24-26mg one tablet twice a day -Lasix 40mg PO daily Stop taking Losartan, as per Dr. Cai. You have confirmed that you have enough of your home medications at home. Also follow up with Dr. Sean Edmonds at the heart failure center Call to make an appointment Return to ED if symptoms return or worsen Referrals: Sean Edmonds MD [Medical Doctor] - Bandar Gold Jr., MD [Medical Doctor] -
== END 2018-10-06 12:31 | disposition home or self-care (01) ==
LOC: C.ER 14:35 → C.9E 16:56 → C.6T 19:01
PROVIDERS: ADMIT Internal Medicine; ATTEND Internal Medicine
DX: I13.0 Hypertensive heart and chronic kidney disease with heart failure and stage 1 through stage 4 chronic kidney disease, or unspecified chronic kidney disease (principal); I50.21 Acute systolic (congestive) heart failure; J44.9 Chronic obstructive pulmonary disease, unspecified; N18.9 Chronic kidney disease, unspecified; N40.0 Benign prostatic hyperplasia without lower urinary tract symptoms; Z79.01 Long term (current) use of anticoagulants; Z79.82 Long term (current) use of aspirin; I48.2 Chronic atrial fibrillation; E11.22 Type 2 diabetes mellitus with diabetic chronic kidney disease; E78.00 Pure hypercholesterolemia, unspecified; I27.20 Pulmonary hypertension, unspecified; Z87.442 Personal history of urinary calculi; F17.210 Nicotine dependence, cigarettes, uncomplicated; Z95.0 Presence of cardiac pacemaker; F41.9 Anxiety disorder, unspecified
CPT/HCPCS: 36415; 71046; 71250; 80053; 83735; 83880; 84100; 84484; 85025; 85610; 85730; 94640; 96374; 97116; 97162; 99285; G0378; G8978; G8979; J1940